=== PATIENT | male | born 1950 | race Caucasian/White ===

== ENCOUNTER → 2018-02-25 08:58 | Outpatient (CLI) | payer OTHER, SELFPAY ==
[2018-02-25 10:42] LABS: Anion Gap 9 (5-15); BUN 20 mg/dL (7-18); BUN/Creat Ratio 18.9 RATIO (10-20); Calcium,Total 9.3 mg/dL (8.5-10.1); Chloride 101 mmol/L (98-107); Creatinine, Serum 1.06 mg/dL (0.70-1.30); EST Glomerular Filtration Rate 74 mL/min (>60); Est Glom Filt Rate - Afr Amer 90 mL/min (>60); Glucose 158 mg/dL (74-106); Potassium 5.1 mmol/L (3.5-5.1); Sodium Level 138 mmol/L (136-145); Thyroid Stim Hormone (TSH) 3.54 uIU/mL (0.358-3.74)
== END ==
PROVIDERS: Family Provider Family Medicine; PCP Family Medicine; Visit Provider Family Medicine
DX: E11.9 Type 2 diabetes mellitus without complications (principal); E66.9 Obesity, unspecified
CPT/HCPCS: 36415; 80048; 84443

== ENCOUNTER → 2018-08-26 08:40 | Outpatient (CLI) | payer OTHER, MEDICARE, SELFPAY ==
[2018-07-02 08:57] VITALS: BMI 51.3
[2018-08-26 10:41] LABS: Microalbumin,Random Urine 6.6 mg/L (NO RANGE EST.)
[2018-08-26 10:57] LABS: AST(SGOT) 32 U/L (15-37); Alanine Aminotransfer ALT/SGPT 45 U/L (16-61); Albumin, Serum 3.6 g/dL (3.2-5.0); Alkaline Phosphatase 87 U/L (45-117); Anion Gap 11 (5-15); BUN 17 mg/dL (7-18); BUN/Creat Ratio 17.5 RATIO (10-20); Bilirubin, Direct 0.22 mg/dL (0.00-0.30); Calcium,Total 8.9 mg/dL (8.5-10.1); Chloride 103 mmol/L (98-107); Creatinine, Serum 0.97 mg/dL (0.70-1.30); EST Glomerular Filtration Rate 82 mL/min (>60); Est Glom Filt Rate - Afr Amer 99 mL/min (>60); Glucose 162 mg/dL (74-106); Potassium 4.6 mmol/L (3.5-5.1); Protein, Total 7.6 g/dL (6.4-8.2); Sodium Level 136 mmol/L (136-145)
== END ==
PROVIDERS: Family Provider Family Medicine; PCP Family Medicine; Visit Provider Family Medicine
DX: E11.9 Type 2 diabetes mellitus without complications (principal); Z79.4 Long term (current) use of insulin
CPT/HCPCS: 36415; 80048; 80076; 82043; 82570

== ENCOUNTER → 2019-01-05 08:31 | Outpatient (CLI) | payer MEDICARE, SELFPAY ==
[2018-12-28 09:46] VITALS: BMI 35.9
[2019-01-05 13:00] LABS: AST(SGOT) 38 U/L (15-37); Alanine Aminotransfer ALT/SGPT 44 U/L (16-61); Albumin, Serum 3.6 g/dL (3.2-5.0); Alkaline Phosphatase 79 U/L (45-117); Bilirubin, Direct 0.11 mg/dL (0.00-0.30); Cholesterol 185 mg/dL (200); Globulin 4.3 g/dL (2.2-4.2); High Density Lipoprotein 42 mg/dL; Protein, Total 7.9 g/dL (6.4-8.2); Triglycerides 314 mg/dL; Very Low Density Lipoprotein 63 mg/dL (5-40)
== END ==
PROVIDERS: Family Provider Family Medicine; PCP Family Medicine; Referring Provider Internal Medicine Cardiovascular Disease; Visit Provider Internal Medicine Cardiovascular Disease
DX: E78.00 Pure hypercholesterolemia, unspecified (principal)
CPT/HCPCS: 36415; 80061; 80076

== ENCOUNTER → 2019-06-18 08:46 | Outpatient (CLI) | payer MEDICARE, SELFPAY ==
[2018-12-28 09:46] VITALS: BMI 35.9
[2019-06-18 10:07] LABS: AST(SGOT) 29 U/L (15-37); Alanine Aminotransfer ALT/SGPT 37 U/L (16-61); Albumin, Serum 3.5 g/dL (3.2-5.0); Alkaline Phosphatase 73 U/L (45-117); Bilirubin, Direct 0.16 mg/dL (0.00-0.30); Cholesterol 153 mg/dL (200); Globulin 4.4 g/dL (2.2-4.2); High Density Lipoprotein 41 mg/dL; Protein, Total 7.9 g/dL (6.4-8.2); Triglycerides 193 mg/dL; Very Low Density Lipoprotein 39 mg/dL (5-40)
== END ==
PROVIDERS: Family Provider Family Medicine; PCP Family Medicine; Referring Provider Internal Medicine Cardiovascular Disease; Visit Provider Internal Medicine Cardiovascular Disease
DX: E78.00 Pure hypercholesterolemia, unspecified (principal)
CPT/HCPCS: 36415; 80061; 80076

== ENCOUNTER → 2019-08-25 09:12 | Outpatient (CLI) | payer MEDICARE, SELFPAY ==
[2019-06-23 08:22] VITALS: BMI 51.3
[2019-08-25 10:42] LABS: Anion Gap 9 (5-15); BUN 15 mg/dL (7-18); BUN/Creat Ratio 14.2 RATIO (10-20); Calcium,Total 9.1 mg/dL (8.5-10.1); Chloride 100 mmol/L (98-107); Creatinine, Serum 1.06 mg/dL (0.70-1.30); EST Glomerular Filtration Rate 74 mL/min (>60); Est Glom Filt Rate - Afr Amer 89 mL/min (>60); Glucose 181 mg/dL (74-106); Hemoglobin A1c 7.9 % (4.2-6.3); PSA,Total - Annual Screen 0.86 ng/mL (0.00-4.00); Potassium 4.1 mmol/L (3.5-5.1); Sodium Level 135 mmol/L (136-145); Thyroid Stim Hormone (TSH) 3.38 uIU/mL (0.358-3.74)
== END ==
PROVIDERS: Family Provider Family Medicine; PCP Family Medicine; Referring Provider Family Medicine; Visit Provider Family Medicine
DX: Z00.00 Encounter for general adult medical examination without abnormal findings (principal); Z12.5 Encounter for screening for malignant neoplasm of prostate; E11.9 Type 2 diabetes mellitus without complications
CPT/HCPCS: 36415; 80048; 83036; 84153; 84443; G0103

== ENCOUNTER → 2020-02-23 08:27 | Outpatient (CLI) | payer MEDICARE, SELFPAY ==
[2019-06-23 08:22] VITALS: BMI 51.3
[2020-02-23 10:40] LABS: ALB/GLOB Ratio 0.8 RATIO (0.9-2.4); AST(SGOT) 24 U/L (15-37); Alanine Aminotransfer ALT/SGPT 35 U/L (16-61); Albumin, Serum 3.5 g/dL (3.2-5.0); Alkaline Phosphatase 75 U/L (45-117); Anion Gap 9 (5-15); BUN 15 mg/dL (7-18); BUN/Creat Ratio 16.9 RATIO (10-20); Bilirubin, Direct 0.25 mg/dL (0.00-0.30); Calcium,Total 8.6 mg/dL (8.5-10.1); Chloride 103 mmol/L (98-107); Cholesterol 136 mg/dL (200); Creatinine, Serum 0.89 mg/dL (0.70-1.30); EST Glomerular Filtration Rate 91 mL/min (>60); Est Glom Filt Rate - Afr Amer 110 mL/min (>60); Globulin 4.5 g/dL (2.2-4.2); Glucose 176 mg/dL (74-106); High Density Lipoprotein 34 mg/dL; Potassium 3.9 mmol/L (3.5-5.1); Sodium Level 135 mmol/L (136-145); Triglycerides 210 mg/dL; Very Low Density Lipoprotein 42 mg/dL (5-40)
== END ==
PROVIDERS: Internal Medicine Cardiovascular Disease; PCP Family Medicine; Visit Provider Family Medicine
DX: E11.9 Type 2 diabetes mellitus without complications (principal); Z79.4 Long term (current) use of insulin; E78.00 Pure hypercholesterolemia, unspecified
CPT/HCPCS: 36415; 80053; 80061; 82248

== ENCOUNTER → 2020-08-24 08:32 | Outpatient (CLI) | payer MEDICARE, SELFPAY ==
[2020-03-10 08:27] VITALS: BMI 51.3
[2020-08-24 10:49] LABS: Anion Gap 7 (5-15); BUN 20 mg/dL (7-18); BUN/Creat Ratio 18.9 RATIO (10-20); Calcium,Total 8.9 mg/dL (8.5-10.1); Chloride 103 mmol/L (98-107); Cholesterol 156 mg/dL (200); Creatinine, Serum 1.06 mg/dL (0.70-1.30); EST Glomerular Filtration Rate 74 mL/min (>60); Est Glom Filt Rate - Afr Amer 89 mL/min (>60); Glucose 161 mg/dL (74-106); High Density Lipoprotein 41 mg/dL; Potassium 4.4 mmol/L (3.5-5.1); Sodium Level 135 mmol/L (136-145); Triglycerides 190 mg/dL; Very Low Density Lipoprotein 38 mg/dL (5-40)
== END ==
PROVIDERS: PCP Family Medicine; Referring Provider Family Medicine; Visit Provider Family Medicine
DX: E11.9 Type 2 diabetes mellitus without complications (principal); Z79.4 Long term (current) use of insulin
CPT/HCPCS: 36415; 80048; 80061

== ENCOUNTER → 2021-01-05 08:33 | Outpatient (CLI) | payer MEDICARE, SELFPAY ==
[2020-03-10 08:27] VITALS: BMI 51.3
[2021-01-05 11:12] LABS: AST(SGOT) 35 U/L (15-37); Alanine Aminotransfer ALT/SGPT 49 U/L (16-61); Albumin, Serum 3.6 g/dL (3.2-5.0); Alkaline Phosphatase 76 U/L (45-117); Cholesterol 160 mg/dL (200); Globulin 4.7 g/dL (2.2-4.2); High Density Lipoprotein 44 mg/dL; Protein, Total 8.3 g/dL (6.4-8.2); Triglycerides 218 mg/dL; Very Low Density Lipoprotein 44 mg/dL (5-40)
== END ==
PROVIDERS: PCP Family Medicine; Referring Provider Internal Medicine Cardiovascular Disease; Visit Provider Internal Medicine Cardiovascular Disease
DX: E78.00 Pure hypercholesterolemia, unspecified (principal)
CPT/HCPCS: 36415; 80061; 80076

== ENCOUNTER → 2021-02-22 08:21 | Outpatient (CLI) | payer MEDICARE, SELFPAY ==
[2021-01-05 09:22] VITALS: BMI 52.6
[2021-02-22 10:10] LABS: Anion Gap 8 (5-15); BUN 18 mg/dL (7-18); Chloride 101 mmol/L (98-107); Creatinine, Serum 1.06 mg/dL (0.70-1.30); EST Glomerular Filtration Rate 74 mL/min (>60); Est Glom Filt Rate - Afr Amer 89 mL/min (>60); Glucose 158 mg/dL (74-106); Potassium 4.8 mmol/L (3.5-5.1); Sodium Level 133 mmol/L (136-145)
[2021-02-22 15:31] LABS: Microalbumin,Random Urine < 5.0 mg/L (NO RANGE EST.)
== END ==
PROVIDERS: PCP Family Medicine; Visit Provider Family Medicine
DX: E11.9 Type 2 diabetes mellitus without complications (principal)
CPT/HCPCS: 36415; 80048; 82043; 82570

== ENCOUNTER → 2021-06-27 10:20 | Outpatient (CLI) | payer MEDICARE, SELFPAY ==
[2021-06-27 12:28] LABS: AST(SGOT) 29 U/L (15-37); Alanine Aminotransfer ALT/SGPT 32 U/L (16-61); Albumin, Serum 3.3 g/dL (3.2-5.0); Alkaline Phosphatase 71 U/L (45-117); Cholesterol 146 mg/dL (200); Globulin 4.7 g/dL (2.2-4.2); High Density Lipoprotein 43 mg/dL; Triglycerides 182 mg/dL; Very Low Density Lipoprotein 36 mg/dL (5-40)
== END ==
PROVIDERS: PCP Family Medicine; Visit Provider Internal Medicine Cardiovascular Disease
DX: E78.00 Pure hypercholesterolemia, unspecified (principal)
CPT/HCPCS: 36415; 80061; 80076

== ENCOUNTER 2021-08-27 08:52 | Outpatient (CLI) | payer MEDICARE, SELFPAY ==
[2021-08-27 10:36] LABS: Anion Gap 8 (5-15); BUN 19 mg/dL (7-18); BUN/Creat Ratio 20.5 RATIO (10-20); Calcium,Total 9.8 mg/dL (8.5-10.1); Chloride 103 mmol/L (98-107); Creatinine, Serum 0.93 mg/dL (0.70-1.30); EST Glomerular Filtration Rate 86 mL/min (>60); Est Glom Filt Rate - Afr Amer 104 mL/min (>60); Glucose 138 mg/dL (74-106); Potassium 5.1 mmol/L (3.5-5.1); Sodium Level 135 mmol/L (136-145)
== END 2021-08-27 23:59 | disposition short-term general hospital (02) ==
LOC: MFPLAB 08:55
PROVIDERS: PCP Family Medicine; Visit Provider Family Medicine
DX: E11.9 Type 2 diabetes mellitus without complications (principal); Z79.4 Long term (current) use of insulin
CPT/HCPCS: 36415; 80048

== ENCOUNTER → 2021-12-25 | Outpatient (CLI) | payer MEDICARE, SELFPAY ==
[2021-12-25 09:14] LABS: AST(SGOT) 31 U/L (15-37); Alanine Aminotransfer ALT/SGPT 39 U/L (16-61); Albumin, Serum 3.7 g/dL (3.2-5.0); Alkaline Phosphatase 80 U/L (45-117); Bilirubin, Direct 0.24 mg/dL (0.00-0.30); Cholesterol 145 mg/dL (200); Globulin 4.4 g/dL (2.2-4.2); High Density Lipoprotein 42 mg/dL; Protein, Total 8.1 g/dL (6.4-8.2); Triglycerides 192 mg/dL; Very Low Density Lipoprotein 38 mg/dL (5-40)
== END | disposition home or self-care (01) ==
LOC: LAB 07:58
PROVIDERS: PCP Family Medicine; Referring Provider Internal Medicine Cardiovascular Disease; Visit Provider Internal Medicine Cardiovascular Disease
DX: E78.00 Pure hypercholesterolemia, unspecified (principal)
CPT/HCPCS: 36415; 80061; 80076

== ENCOUNTER → 2022-02-25 | Outpatient (CLI) | payer MEDICARE, SELFPAY ==
[2022-02-25 10:35] LABS: Anion Gap 6 (5-15); BUN 17 mg/dL (7-18); BUN/Creat Ratio 18.5 RATIO (10-20); Calcium,Total 9.3 mg/dL (8.5-10.1); Chloride 101 mmol/L (98-107); Creatinine, Serum 0.92 mg/dL (0.70-1.30); EST Glomerular Filtration Rate 86 mL/min (>60); Est Glom Filt Rate - Afr Amer 104 mL/min (>60); Glucose 141 mg/dL (74-106); Potassium 4.8 mmol/L (3.5-5.1); Sodium Level 136 mmol/L (136-145)
== END | disposition home or self-care (01) ==
LOC: MFPLAB 09:19
PROVIDERS: PCP Family Medicine; Visit Provider Family Medicine
DX: E11.9 Type 2 diabetes mellitus without complications (principal); Z79.4 Long term (current) use of insulin
CPT/HCPCS: 36415; 80048

== ENCOUNTER → 2022-05-30 | Outpatient (CLI) | payer MEDICARE, SELFPAY ==
[2022-05-30 10:49] LABS: Anion Gap 8 (5-15); BUN 17 mg/dL (7-18); BUN/Creat Ratio 17.3 RATIO (10-20); Calcium,Total 9.2 mg/dL (8.5-10.1); Chloride 102 mmol/L (98-107); Cholesterol 141 mg/dL (200); Creatinine, Serum 0.98 mg/dL (0.70-1.30); EST Glomerular Filtration Rate 80 mL/min (>60); Est Glom Filt Rate - Afr Amer 97 mL/min (>60); Glucose 140 mg/dL (74-106); High Density Lipoprotein 39 mg/dL; Potassium 4.7 mmol/L (3.5-5.1); Sodium Level 135 mmol/L (136-145); Triglycerides 161 mg/dL; Very Low Density Lipoprotein 32 mg/dL (5-40)
== END | disposition home or self-care (01) ==
LOC: MFPLAB 08:26
PROVIDERS: PCP Family Medicine; Referring Provider Family Medicine; Visit Provider Family Medicine
DX: E11.9 Type 2 diabetes mellitus without complications (principal)
CPT/HCPCS: 36415; 80048; 80061

== ENCOUNTER → 2022-06-25 | Outpatient (CLI) | payer MEDICARE, SELFPAY ==
[2022-06-25 08:34] LABS: AST(SGOT) 35 U/L (15-37); Alanine Aminotransfer ALT/SGPT 32 U/L (16-61); Albumin, Serum 3.7 g/dL (3.2-5.0); Alkaline Phosphatase 75 U/L (45-117); Bilirubin, Direct 0.23 mg/dL (0.00-0.30); Cholesterol 162 mg/dL (200); Globulin 4.6 g/dL (2.2-4.2); High Density Lipoprotein 47 mg/dL; Protein, Total 8.3 g/dL (6.4-8.2); Triglycerides 219 mg/dL; Very Low Density Lipoprotein 44 mg/dL (5-40)
== END | disposition home or self-care (01) ==
LOC: LAB 07:31
PROVIDERS: PCP Family Medicine; Referring Provider Internal Medicine Cardiovascular Disease; Visit Provider Internal Medicine Cardiovascular Disease
DX: E78.00 Pure hypercholesterolemia, unspecified (principal)
CPT/HCPCS: 36415; 80061; 80076

== ENCOUNTER → 2022-11-28 | Outpatient (CLI) | payer MEDICARE, SELFPAY ==
[2022-11-28 10:56] LABS: Anion Gap 5 (5-15); BUN 21 mg/dL (7-18); BUN/Creat Ratio 20.8 RATIO (10-20); Calcium,Total 9.5 mg/dL (8.5-10.1); Chloride 102 mmol/L (98-107); Cholesterol 148 mg/dL (200); Creatinine, Serum 1.01 mg/dL (0.70-1.30); EST Glomerular Filtration Rate 77 mL/min (>60); Est Glom Filt Rate - Afr Amer 94 mL/min (>60); Glucose 173 mg/dL (74-106); High Density Lipoprotein 43 mg/dL; Potassium 5.1 mmol/L (3.5-5.1); Sodium Level 133 mmol/L (136-145); Triglycerides 206 mg/dL; Very Low Density Lipoprotein 41 mg/dL (5-40)
== END | disposition home or self-care (01) ==
LOC: MFPLAB 09:06
PROVIDERS: PCP Family Medicine; Referring Provider Family Medicine; Visit Provider Family Medicine
DX: E11.9 Type 2 diabetes mellitus without complications (principal); Z79.4 Long term (current) use of insulin
CPT/HCPCS: 36415; 80048; 80061

== ENCOUNTER 2023-04-28 15:32 | Observation (INO) | payer MEDICARE, SELFPAY ==
[2023-04-28] VITALS (7 sets, daily range): BP systolic 122–188; BP diastolic 60–108; PULSE 52–60; RESP 18–26; TEMP 35.9–36.7; O2SAT 96–98; BMI 49.7; BMI 49.9
--- NOTE | 2023-04-28 16:22 | CT_ITS ---
INDICATION: 3rd nerve palsy EXAMINATION: CT BRAIN WITH CONTRAST TECHNIQUE: Noncontrast axial images were obtained of the brain. Subsequently, routine carotid CT angiogram protocol was performed without and with IV contrast. In addition, images were obtained of the [place]. NASCET criteria using the distal ICAs for comparison were used for evaluation of stenoses. 3D reconstructions were reviewed. A radiation dose optimization technique was used for this scan. IV Contrast dosage and agent: COMPARISON: FINDINGS: --CT BRAIN: BRAIN PARENCHYMA: No intra- or extra-axial hemorrhage. No evidence of acute infarct. No intracranial mass or mass effect. There is preservation of the gusman/white matter interface. Posterior fossa structures are unremarkable. CSF SPACES: Appropriate for age. No hydrocephalus. Basal cisterns are patent. CALVARIUM, SKULL BASE, PARANASAL SINUSES AND MASTOID AIR CELLS: Clear. No discrete lytic or blastic abnormalities. ASPECTS Score for Acute Strokes: 10 --CTA NECK: AORTIC ARCH AND BRANCHES: Borderline ascending aorta measuring 3.9 cm. RIGHT CCA: No occlusion, significant stenosis or dissection. RIGHT ICA: No occlusion, significant stenosis or dissection. LEFT CCA: No occlusion, significant stenosis or dissection. LEFT CAROTID BULB: Mild-severity calcifications and intraluminal thrombus with less than 50% luminal stenosis LEFT ICA: No occlusion, significant stenosis or dissection. RIGHT VERTEBRAL ARTERY: No occlusion, significant stenosis or dissection. LEFT VERTEBRAL ARTERY: Limited visualization of the proximal segment. No occlusion, significant stenosis or dissection. NECK SOFT TISSUES: Unremarkable. --CTA HEAD: --Anterior circulation: ICAs: No significant stenosis at the intracranial/visualized segments. ACAs: No significant stenosis at the visualized segments. ACOM: Present. MCAs: No significant stenosis at the visualized segments. --Posterior circulation: PCOMs: Patent on the left. Nonvisualization on the right. 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 BASILAR ARTERY: No significant stenosis. VERTEBRAL ARTERIES: Limited visualization of the proximal segment of the left vertebral artery. No significant stenosis at the intradural/visualized segments. No evidence of intracranial aneurysm or vascular malformation. CT/CTA Head AND Neck W/ Contrast IMPRESSION: No hemodynamically significant stenosis. Electronically Signed: Issa Rider DO at 18:14 EDT Reading Location ID and State: [facility] / [place] Tel [phone], Service support ,
--- NOTE | 2023-04-28 16:26 | EKG12_ITS ---
Test Reason : NEURO Blood Pressure : / mmHG Vent. Rate : 056 BPM Atrial Rate : 056 BPM P-R Int : 240 ms QRS Dur : 088 ms QT Int : 440 ms P-R-T Axes : -07 -43 -06 degrees QTc Int : 424 ms Sinus bradycardia with sinus arrhythmia with 1st degree A-V block Left axis deviation Inferior infarct , age undetermined Possible Anterolateral infarct , age undetermined Abnormal ECG Confirmed by ERIC OCONNOR ([id number]), editorial director CRISTY ALEJO ([id number]) on 05/07/2023 2:01:28 PM Referred By: Confirmed By:ERIC OCONNOR
[2023-04-28 16:34] LABS: Absolute Lymphocyte Count 2.23 X10^3/uL (0.83-4.51); Absolute Neutrophil Count 6.6 X10^3/uL (2.0-7.7); Basophil# 0.09 X10^3/uL; Basophil% 0.8 % (0-1); Eosinophil# 0.72 X10^3/uL; Eosinophils% 6.7 % (0-5); Hematocrit 49.3 % (40-54); Hemoglobin 15.8 g/dL (13.0-16.5); Lymphocyte # 2.23 X10^3/ul (0.83-4.51); Lymphocyte % 20.8 % (19-41); Mean Corpuscular Hgb 29.6 pg (27.0-32.0); Mean Corpuscular Volume 92.5 fL (80-94); Mean Platelet Vol. 10.4 fl (6.2-12.0); Monocyte# 0.98 X10^3/uL; Monocyte% 9.1 % (0-10); NRBC Flagged by Analyzer 0 % (0-5); Neutrophil # 6.64 X10^3/uL (2.7-7.7); Neutrophil % 61.9 % (47-70); Platelet Count 192 K/mm3 (150-450); RBC Distribution Width CV 13.8 % (11.6-14.6); Red Blood Count 5.33 M/mm3 (4.6-6.2); White Blood Count 10.7 K/mm3 (4.4-11.0)
[2023-04-28 16:48] LABS: Partial Thromboplast Time 26.7 Seconds (24.1-36.2); Prothrombin Time (Protime)PT. 13.3 SECONDS (11.7-14.9)
[2023-04-28 16:54] LABS: Anion Gap 9 (5-15); BUN 17 mg/dL (7-18); BUN/Creat Ratio 14.8 RATIO (10-20); CRP 5.69 mg/L (0.0-3.0); Calcium,Total 9.1 mg/dL (8.5-10.1); Chloride 103 mmol/L (98-107); Creatinine, Serum 1.15 mg/dL (0.70-1.30); EST Glomerular Filtration Rate 67 mL/min (>60); Est Glom Filt Rate - Afr Amer 81 mL/min (>60); Glucose 122 mg/dL (74-106); Potassium 3.9 mmol/L (3.5-5.1); Sodium Level 139 mmol/L (136-145)
--- NOTE | 2023-04-28 16:56 | EDS_ITS ---
HPI History of Present Illness Chief Complaint: Neuro S/Sx Detail of Chief Complaint: Vision changes Informant: patient Narrative Narrative: Patient presents from PCPs office due to concern about vision changes, facial droop, right eye drooping. Patient states that last April 24, he noted double vision. He states initially there were 2 objects located [id number] when he would have both eyes open. When he closes 1 eye he has normal vision without any change. He states that since , the object has become further apart and one object is now slightly higher than the other. Patient saw his primary care physician today who noted a slight facial droop on the right and drooping of the right upper eyelid. Due to delay on getting scans preapproved he was sent to the emergency room. Patient does have history of prior cataract surgery on his eyes with Dr. Cordero. [facility] Medical History Arteriosclerotic coronary artery disease Atherosclerotic heart disease of [place] coronary artery without angina pectoris CAD (coronary artery disease) Diabetes mellitus Essential (primary) hypertension Hyperlipidemia Intermittent claudication Other care home (current) drug therapy Pure hypercholesterolemia Home Medications aspirin 81 mg chewable tablet 81 mg PO DAILY@0800 06/08/13 [History Last Taken 06/07/13 08:00] multivitamin with folic acid 400 mcg tablet 1 tab PO DAILY 06/08/13 [History Last Taken 06/07/13 08:00] sitagliptin phosphate 50 mg-metformin 1,000 mg tablet (Janumet) 1 tab PO BID 07/02/18 [History Last Taken Unknown] glimepiride 4 mg tablet 4 mg PO DAILY 01/05/21 [History Last Taken Unknown] lisinopril 10 mg tablet 20 mg PO DAILY 07/01/22 [History Last Taken Unknown] isosorbide mononitrate 30 mg tablet,extended release 24 hr 30 mg PO DAILY #90 tabs 08/06/22 [Rx Last Taken Unknown] metoprolol tartrate 25 mg tablet 25 mg PO BID #180 tabs 08/13/22 [Rx Last Taken Unknown] empagliflozin 25 mg tablet 25 mg PO QDAY #90 tabs 10/04/22 [Rx Last Taken Unknown] atorvastatin 40 mg tablet 40 mg PO QDAY #90 tabs 01/14/23 [Rx Last Taken Unknown] Allergy/AdvReac Type Severity Reaction Status Date / Time Penicillins Allergy Unknown Verified 04/28/23 15:36 Family History Mother CAD (coronary artery disease) cabg Diabetes Brother pacemaker Father Diabetes Surgical History History of cardiac cath (~03/2012) Social History Smoking Status: Never smoker alcohol intake: never substance use type: does not use caffeine: Yes Type: coffee Number of servings: 12 what type of physical activity do you participate in: none seatbelt use: never do you feel safe at home: Yes ROS ROS ED Constitutional Constitutional ED: Denies chills or fever(s) Eyes Eyes: Reports change in vision and diplopia; Denies discharge from eye(s) ENT ENT ED: Denies discharge from eye(s), rhinorrhea or sore throat Cardiovascular Cardiovascular: Denies chest pain or palpitations Respiratory/Chest Respiratory/Chest: Denies cough or dyspnea Gastrointestinal Gastrointestinal: Denies abdominal pain, nausea or vomiting Genitourinary Genitourinary ED: Denies dysuria Musculoskeletal Musculoskeletal: Denies back pain or extremity pain Integumentary Denies Abrasions or rash Neurologic Neurologic: Denies headache(s) or weakness Psychiatric Psychiatric: Denies anxiety or depression Allergic/Immunologic Allergic/Immunologic ED: Denies lip swelling or urticaria EXAM Physical Exam Const Vital Signs: 04/28/23 15:33 04/28/23 17:32 Temperature 96.6 F L Temperature Source Temporal Pulse Rate 60 52 L Respiratory Rate 20 H 19 H Blood Pressure 188/82 H 132/60 H Blood Pressure Mean 117 84 Pulse Ox 98 Oxygen Delivery Method Room Air Positive well nourished and well developed General Appearance ED: well developed HEENT Reports normocephalic and head/scalp atraumatic Eyes PERRL Eyes Narrative: When looking at the patient, his left eye focuses on my face appropriately but his right eye is turned out laterally. However, when I have the patient follow my finger with his eyes he had does have full range of motion of his right eye. Slight right eyelid droop was noted. Neck supple Chest Wall inspection of chest normal and palpation of chest normal Resp normal respiratory effort and clear to auscultation bilaterally Cardio regular rate and regular rhythm GI normal to inspection, nondistended, normoactive bowel sounds Palpation: soft Back/Spine no CVA tenderness Extremity normal to inspection Neuro oriented x3 and no sensory deficits noted Sensorium / Orientation: alert Motor Exam: strength 5/5 throughout Psych mental status grossly normal Skin no rashes or lesions noted MDM MDM MDM Narrative Medical decision making narrative: I spoke with Dr. Luong, on-call for ophthalmology. He recommended CTA of the head and neck to evaluate for SUPPLY CHAIN SPECIALIST abnormality pressing on the 3rd nerve. He also recommended sed rate and CRP as giant cell arteritis can sometimes cause the symptoms. Lab work was obtained along with CTA of the head and neck. History & Record Review Discussion w/independent historian: Patient and Other Lab Data Attestation: I reviewed the patient's lab results. Labs: Laboratory Results - last 24 hr 04/28/23 16:24 WBC 10.7 RBC 5.33 Hgb 15.8 Hct 49.3 MCV 92.5 MCH 29.6 MCHC 32.0 RDW Std Deviation 47.0 H RDW Coeff of Naldo 13.8 Plt Count 192 MPV 10.4 Immature Gran % (Auto) 0.700 Neut % (Auto) 61.9 Lymph % (Auto) 20.8 [place] % (Auto) 9.1 Eos % (Auto) 6.7 H Baso % (Auto) 0.8 Absolute Neuts (auto) 6.6 Absolute Lymphs (auto) 2.23 Nucleated RBC % 0 ESR 6 PT 13.3 INR 1.0 APTT 26.7 Sodium 139 Potassium 3.9 Chloride 103 Carbon Dioxide 27.0 Anion Gap 9 BUN 17 Creatinine 1.15 Est GFR (MDRD) Af Amer 81 Est GFR (MDRD) Non-Af 67 BUN/Creatinine Ratio 14.8 Glucose 122 H Calcium 9.1 C-React Prot Ext Range 5.69 H Radiography Diagnostic Testing: Clinical Impression(s) from Imaging Studies Head/Neck CTA 04/28/23 16:22 IMPRESSION: No hemodynamically significant stenosis. Electronically Signed: Issa Rider DO at 18:14 EDT , Treatment and Re-Evaluation :: CBC is unremarkable. Chemistry studies are normal other than a glucose of 122. CRP is 5.69 and sed rate is normal at 6. Coags are normal. EKG is sinus bradycardia 56 bpm. No acute ischemia. CTA of the head and neck reveals no acute abnormalities. Per my discussion with Dr. Luong, if her initial work- up was negative patient still would benefit from admission for further stroke work-up including MRI. Dr. Luong is available to come see the patient if needed in consult. I will speak with the hospitalist. 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 Prescriptions: No Action Janumet 50-1,000 mg tablet 1 tab PO BID glimepiride 4 mg tablet 4 mg PO DAILY lisinopril 10 mg tablet 20 mg PO DAILY aspirin 81 MG tablet,chewable 81 mg PO DAILY@0800 Patient Comments: ANTIPLATELET multivitamin with folic acid 1 TABLET tablet 1 tab PO DAILY Patient Comments: MULTI VITAMIN isosorbide mononitrate 30 mg tablet extended release 24 hr 30 mg PO DAILY Qty: 90 4RF metoprolol tartrate 25 mg tablet 25 mg PO BID Qty: 180 3RF empagliflozin 25 mg tablet 25 mg PO QDAY Qty: 90 3RF atorvastatin 40 mg tablet 40 mg PO QDAY Qty: 90 3RF Primary Care Provider: Javan Wells Referrals: Javan Wells MD [Primary Care Provider] - Disposition Disposition: Acute Care Hospital [facility]
--- NOTE | 2023-04-28 19:26 | PCM.HP.STD ---
HPI - General General Date of Admission: 04/28/23 Date of Service: 04/28/23 Chief Complaint: Double vision HPI Narrative MARIYA ORTA, is a 72 M with a significant history of hypertension, hyperlipidemia, diabetes mellitus who presents emergency department with 4-day history of double vision. Of note his symptoms started with blurred vision. Later on his symptoms progressed to double vision. His symptoms have been persistent. He noticed that when he is covered his right eye which was getting especially closed he could see better. Also he reports of pain in his right eye. Emergency room doctor discussed the case with manager psychology who will follow up on consultation. [facility], [facility] Medical History (Updated 04/29/23 @ 06:[address] 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 Pure hypercholesterolemia Home Medications aspirin 81 mg chewable tablet 81 mg PO DAILY@0800 06/08/13 [History Last Taken 06/07/13 08:00] multivitamin with folic acid 400 mcg tablet 1 tab PO DAILY 06/08/13 [History Last Taken 06/07/13 08:00] sitagliptin phosphate 50 mg-metformin 1,000 mg tablet (Janumet) 1 tab PO BID 07/02/18 [History Last Taken Unknown] glimepiride 4 mg tablet 4 mg PO QHS 01/05/21 [History Last Taken Unknown] lisinopril 10 mg tablet 20 mg PO DAILY 07/01/22 [History Last Taken Unknown] isosorbide mononitrate 30 mg tablet,extended release 24 hr 30 mg PO DAILY #90 tabs 08/06/22 [Rx Last Taken Unknown] metoprolol tartrate 25 mg tablet 25 mg PO BID #180 tabs 08/13/22 [Rx Last Taken Unknown] empagliflozin 25 mg tablet 25 mg PO QDAY #90 tabs 10/04/22 [Rx Last Taken Unknown] atorvastatin 40 mg tablet 40 mg PO QDAY #90 tabs 01/14/23 [Rx Last Taken Unknown] Allergy/AdvReac Type Severity Reaction Status Date / Time Penicillins Allergy Unknown Verified 04/28/23 15:36 Family History Mother CAD (coronary artery disease) cabg Diabetes Brother pacemaker Father Diabetes Surgical History History of cardiac cath (~03/2012) Social History Smoking Status: Never smoker alcohol intake: never substance use type: does not use caffeine: Yes Type: coffee Number of servings: 12 what type of physical activity do you participate in: none seatbelt use: never do you feel safe at home: Yes ROS ROS Narrative Pertinent positives and pertinent negatives as noted in HPI. All other systems were reviewed and are negative Vital Signs Vital Signs Vital Signs: 04/28/23 15:33 04/28/23 17:32 04/28/23 19:10 Temperature 96.6 F L Temperature Source Temporal Pulse Rate 60 52 L 56 L Respiratory Rate 20 H 19 H 19 H Blood Pressure 188/82 H 132/60 H 122/108 H Blood Pressure Mean 117 84 112 Pulse Ox 98 Oxygen Delivery Method Room Air 04/28/23 19:22 Temperature 97.2 F L Temperature Source Temporal Pulse Rate 54 L Respiratory Rate 26 H Blood Pressure 163/80 H Blood Pressure Mean 107 Pulse Ox 96 Oxygen Delivery Method Room Air Physical Exam Narrative Physical exam: General: Well-nourished, well-developed. Head: Normocephalic, atraumatic, no tenderness Eyes: Vision is grossly normal. EOMI ENT, no trauma, moist mucous membranes, no rhinorrhea Neck: Nontender, No thyromegaly. CVS: Regular rate and rhythm. S1-S2 present. No murmur, gallop or rub. Respiratory : clear to auscultation bilaterally, chest wall nontender Abdomen: Soft, nontender, nondistended, normal bowel sounds, no masses : Deferred Back: Nontender, no CVA tenderness, no midline spinal tenderness, deformities, step-offs Extremities: Nontender full range of motion, no trauma Skin: Normal color, no trauma, abrasions Neuro: Alert, oriented, right eyelid droop and right facial droop. Hfba-gt-zeef test normal pntryv-ry-kfna test normal. Strength 5 out of 5 throughout. Not hyperreflexia in bilateral elbow reflex and knee-jerk reflex. Psychiatry: Normal mood. Normal affect. Not depressed. Not anxious. Results Lab / Micro Data Attestation: I reviewed the patient's lab results. 04/29/23 04:51 04/29/23 04:51 Labs: Laboratory Results - last 24 hr 04/28/23 16:24: WBC 10.7, RBC 5.33, Hgb 15.8, Hct 49.3, MCV 92.5, MCH 29.6, MCHC 32.0, RDW Std Deviation 47.0 H, RDW Coeff of Naldo 13.8, Plt Count 192, MPV 10.4, Immature Gran % (Auto) 0.700, Neut % (Auto) 61.9, Lymph % (Auto) 20.8, [place] % (Auto) 9.1, Eos % (Auto) 6.7 H, Baso % (Auto) 0.8, Absolute Neuts (auto) 6.6, Absolute Lymphs (auto) 2.23, Nucleated RBC % 0, ESR 6, PT 13.3, INR 1.0, APTT 26.7, Sodium 139, Potassium 3.9, Chloride 103, Carbon Dioxide 27.0, Anion Gap 9, BUN 17, Creatinine 1.15, Est GFR (MDRD) Af Amer 81, Est GFR (MDRD) Non-Af 67, BUN/Creatinine Ratio 14.8, Glucose 122 H, Calcium 9.1, C-React Prot Ext Range 5.69 H Radiology Impression Head/Neck CTA 04/28/23 16:22 IMPRESSION: No hemodynamically significant stenosis. Electronically Signed: Issa Rider DO at 18:14 EDT Reading Location ID and State: [facility] / [place] Tel [phone], Service support , Assessment & Plan Assessment/Plan (1) 3rd cranial nerve palsy: QUALIFIERS: Laterality: right Qualified Code(s): H49.01 - Third [oculomotor] nerve palsy, right eye (2) Stroke-like symptoms: PLAN: Plan Strokelike symptoms Serial NINDS NIH Scale ordered Impression of head and neck CTA with no hemodynamically significant stenosis. There was no bleed. Upon my personal head CT image review: I agree with radiologist interpretation Lipid profile and A1c ordered. Physical therapy, occupational therapy and to work with patient. N.p.o. until bedside swallow eval. Daily aspirin. High intensity statin. Patient is outside window of permissive hypertension. Echocardiogram ordered. Ophthalmology consulted Hypertension Blood pressure is not within goal Home blood pressure medication continued. As needed hydralazine ordered. Trend blood pressure and adjust blood pressure medications. Diabetes mellitus Blood glucose on presentation was stable. Jardiance and glimepiride continued. Janumet held. Monitor Accu-Cheks. With continuation of glimepiride Correction scale insulin ordered. Time spent in the patient's overall evaluation,decision-making process, review of diagnostic data, adjustment of management, discussion with other providers, nursing nursing and ancillary staff involved in patient's care documentation, 70 minutes. Charges/Coding Visit Charges Inpatient E&M: 18767 Init Hosp L3
--- NOTE | 2023-04-28 20:58 | ECHOCS_ITS ---
Reason For Study: TIA/CVA Procedure This was a 2D Doppler, Color Flow transthoracic echocardiogram. Technically difficult study due to body habitus and patient having hard time tolerating probe pressure. Exam performed portable in patient room. Left Ventricle Normal LV size. Moderate concentric left ventricular hypertrophy. Left ventricular systolic function is normal. The estimated ejection fraction is 55 %. Stage 2 diastolic dysfunction. No regional wall motion abnormalities noted. Right Ventricle Normal RV size. Normal systolic function. Atria There is moderate biatrial dilatation. The right atrium is moderately enlarged. Mitral Valve Mitral valve not well visualized. Tricuspid Valve Normal tricuspid valve. Aortic Valve Trisinus/trileaflet aortic valve. Mild focal aortic valve calcification. Pulmonic Valve The pulmonic valve is not well visualized. Great Vessels Normal aortic root. The pulmonary artery is normal size. Normal inferior vena cava. Pericardium/Pleural No pericardial effusion. Medication Diluted definity 3ml given slow IV push to enhance endocardial definition. MMode/2D Measurements & Calculations LVIDd: 4.7 cm IVSd: 1.5 cm LAV(MOD-bp): 75.0 ml LVIDs: 3.4 cm LVPWd: 1.7 cm FS: 27.5 % LAV(MOD-bp) Indexed: 31.2 ml/m2 LAV(MOD-sp2): 62.6 ml LAV(MOD-sp4): 83.5 ml SV(MOD-sp4): 63.9 ml SV(sp4-el): 66.6 ml LVAd ap4: 35.1 cm2 LVLd ap4: 8.6 cm EDV(MOD-sp4): 117.1 ml EDV(sp4-el): 122.0 ml LVAs ap4: 22.1 cm2 LVLs ap4: 7.5 cm ESV(MOD-sp4): 53.1 ml ESV(sp4-el): 55.3 ml EF(MOD-sp4): 54.6 % EF(sp4-el): 54.6 % TAPSE: 3.5 cm LA A4 area: 26.6 cm2 RA A4 area: 25.8 cm2 Time Measurements MV dec time: 0.13 sec Doppler Measurements & Calculations MV E max kevon: 104.0 cm/sec Lat Peak E' Kevon: 11.7 cm/sec Med Peak E' Kevon: 6.9 cm/sec MV A max kevon: 85.0 cm/sec E/E' lat: 8.9 E/E' med: 15.0 MV E/A: 1.2 MV V2 max: 116.3 cm/sec MV dec slope: 791.4 cm/sec2 Ao V2 max: 146.4 cm/sec MV max P.4 mmHg Ao max P.6 mmHg MV V2 mean: 62.2 cm/sec Ao V2 mean: 92.9 cm/sec MV mean P.9 mmHg Ao mean P.1 mmHg MV V2 VTI: 35.5 cm Ao V2 VTI: 38.5 cm AV (velocity ratio): 0.83 LV V1 max: 121.5 cm/sec PA V2 max: 104.2 cm/sec LV V1 max P.9 mmHg PA V2 mean: 67.4 cm/sec LV V1 mean P.0 mmHg LV V1 mean: 80.8 cm/sec LV V1 VTI: 32.1 cm ECHO/Echo Complete W/ Contrast Interpretation Summary Normal LV size. Left ventricular systolic function is normal. The estimated ejection fraction is 55 %. Moderate concentric left ventricular hypertrophy. Stage 2 diastolic dysfunction. Contrast injection was performed. Ordering Physician: El James Referring Physician: Javan Wells Performed By: Constance Bond RCS
[2023-04-28] MEDS: Glimepiride 4 MG Tablet PO (22:11)
[2023-04-28] MEDS: Atorvastatin Calcium 40 MG Tablet PO (22:11)
[2023-04-28] MEDS: Metoprolol Tartrate 25 MG Tablet PO (22:11)
[2023-04-28 22:32] LABS: Bedside Glucose 110 mg/dL (74-106)
[2023-04-29 01:10] VITALS: BP 125/67; PULSE 57; RESP 16; TEMP 36.7; O2SAT 97
[2023-04-29 01:18] LABS: Erythrocyte Sedimentation Rate 8 mm/hr (0-20)
[2023-04-29 05:05] VITALS: BP 141/65; PULSE 61; RESP 16; TEMP 36.8; O2SAT 97
[2023-04-29 05:10] LABS: Absolute Lymphocyte Count 1.81 X10^3/uL (0.83-4.51); Absolute Neutrophil Count 5.4 X10^3/uL (2.0-7.7); Basophil# 0.08 X10^3/uL; Basophil% 0.9 % (0-1); Eosinophil# 0.63 X10^3/uL; Eosinophils% 7.1 % (0-5); Hematocrit 47.1 % (40-54); Hemoglobin 15.5 g/dL (13.0-16.5); Lymphocyte # 1.81 X10^3/ul (0.83-4.51); Lymphocyte % 20.5 % (19-41); Mean Corp Hgb Conc 32.9 g/dL (32-36); Mean Corpuscular Volume 91.3 fL (80-94); Mean Platelet Vol. 10.9 fl (6.2-12.0); Monocyte# 0.87 X10^3/uL; Monocyte% 9.9 % (0-10); NRBC Flagged by Analyzer 0 % (0-5); Neutrophil # 5.38 X10^3/uL (2.7-7.7); Platelet Count 178 K/mm3 (150-450); RBC Distribution Width CV 13.8 % (11.6-14.6); RBC Distribution Width SD 46.9 fl (35.1-43.9); Red Blood Count 5.16 M/mm3 (4.6-6.2); White Blood Count 8.8 K/mm3 (4.4-11.0)
[2023-04-29 05:40] LABS: Anion Gap 5 (5-15); BUN 14 mg/dL (7-18); BUN/Creat Ratio 16.4 RATIO (10-20); Calcium,Total 8.8 mg/dL (8.5-10.1); Chloride 106 mmol/L (98-107); Cholesterol 148 mg/dL (200); Creatinine, Serum 0.85 mg/dL (0.70-1.30); EST Glomerular Filtration Rate 94 mL/min (>60); Est Glom Filt Rate - Afr Amer 114 mL/min (>60); Estimated Creatinine Clearance 71.93 ml/min; Glucose 138 mg/dL (74-106); High Density Lipoprotein 40 mg/dL; Potassium 4.2 mmol/L (3.5-5.1); Sodium Level 139 mmol/L (136-145); Triglycerides 184 mg/dL; Very Low Density Lipoprotein 37 mg/dL (5-40)
[2023-04-29 07:22] LABS: Hemoglobin A1c 7.3 % (3.8-5.6)
[2023-04-29 08:40] VITALS: BP 140/65; PULSE 51; RESP 16; TEMP 36.7; O2SAT 98
[2023-04-29] MEDS: Empagliflozin 25 MG Tablet PO (08:52)
[2023-04-29] MEDS: Aspirin 81 MG TAB.CHEW PO (08:52)
[2023-04-29] MEDS: Enoxaparin 40 MG/0.4 ML Syringe SC (08:53)
[2023-04-29 08:56] VITALS: O2SAT 95
--- NOTE | 2023-04-29 11:52 | CASEMGMT ---
Patient has order for discharge. RN CM in to discuss needs at discharge. Patient and daughter deny needs at discharge. Patient and daughter had no further questions or concerns.
[2023-04-29 12:13] VITALS: BP 115/99; PULSE 56; RESP 16; TEMP 36.7; O2SAT 97
[2023-04-29 12:23] VITALS: BP 115/99; PULSE 62
[2023-04-29] MEDS: Metoprolol Tartrate 25 MG Tablet PO (12:23)
[2023-04-29] MEDS: Isosorbide Mononitrate 30 MG Tablet PO (12:23)
[2023-04-29] MEDS: Multivitamins,Therapeutic Tablet 1 TABLET PO (12:23)
[2023-04-29] MEDS: Lisinopril 20 MG Tablet PO (12:23)
[2023-04-29 12:38] LABS: Bedside Glucose 144 mg/dL (74-106)
--- NOTE | 2023-04-29 13:08 | DCINST_ITS ---
Discharge Instructions Diet Discharge Diet: Carb Control Diet Activity Discharge Activity: Return to Normal Activity Dressing / Incision Call your doctor if you observe: Fever of 101 or Higher, Shortness of breath, Dizziness, Fainting spells, Swelling in the ankles, Chest pain and Increased palpitations (irregular heartbeat) Follow Up Care Test Results: Test results from this visit will be discussed in further detail at your follow- up appointment, if applicable. Discharge Plan Admission Admit Date/Time: 04/28/23 19:14 Attending Provider: Mo Foley Primary Care Provider: Javan Wells Consulting Providers: El James Discharge Orders/Prescriptions Prescriptions: Continued Janumet 50-1,000 mg tablet 1 tab PO BID glimepiride 4 mg tablet 4 mg PO .daily @ dinner lisinopril 10 mg tablet 20 mg PO DAILY aspirin 81 MG tablet,chewable 81 mg PO DAILY@0800 Patient Comments: ANTIPLATELET multivitamin with folic acid 1 TABLET tablet 1 tab PO DAILY Patient Comments: MULTI VITAMIN isosorbide mononitrate 30 mg tablet extended release 24 hr 30 mg PO DAILY Qty: 90 4RF metoprolol tartrate 25 mg tablet 25 mg PO BID Qty: 180 3RF empagliflozin 25 mg tablet 25 mg PO QDAY Qty: 90 3RF atorvastatin 40 mg tablet 40 mg PO QDAY Qty: 90 3RF Referrals / Follow Up: Javan Wells MD [Primary Care Provider] - In 1 Week Disposition Disposition (needs filled in before D/C Order can be placed): Home, Self Care
[2023-04-29 14:00] VITALS: BMI 49.9
--- NOTE | 2023-04-29 14:19 | PCM.DC.SUM ---
Providers Date of Admission: 04/28/23 Primary Care Physician: Dr. 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 Code(s): H49.00 - Third [oculomotor] nerve palsy, unspecified eye Qualifiers: Laterality: right Qualified Code(s): H49.01 - Third [oculomotor] nerve palsy, right eye (2) Stroke-like symptoms: Status: Acute Code(s): R29.90 - Unspecified symptoms and signs involving the nervous system Medications at Discharge Home Medications aspirin 81 mg chewable tablet 81 mg PO DAILY@0800 06/08/13 multivitamin with folic acid 400 mcg tablet 1 tab PO DAILY 06/08/13 sitagliptin phosphate 50 mg-metformin 1,000 mg tablet (Janumet) 1 tab PO BID 07/02/18 glimepiride 4 mg tablet 4 mg PO .daily @ dinner 01/05/21 lisinopril 10 mg tablet 20 mg PO DAILY 07/01/22 isosorbide mononitrate 30 mg tablet,extended release 24 hr 30 mg PO DAILY #90 tabs 08/06/22 metoprolol tartrate 25 mg tablet 25 mg PO BID #180 tabs 08/13/22 empagliflozin 25 mg tablet 25 mg PO QDAY #90 tabs 10/04/22 atorvastatin 40 mg tablet 40 mg PO QDAY #90 tabs 01/14/23 Hospital Course Operations None Procedures None Summary of Care Provided Minutes Spent on Discharge: 32 Hospital Course: Per HPI: MARIYA ORTA, is a 72 M with a significant history of hypertension, hyperlipidemia, diabetes mellitus who presents emergency department with 4-day history of double vision. Of note his symptoms started with blurred vision. Later on his symptoms progressed to double vision. His symptoms have been persistent. He noticed that when he is covered his right eye which was getting especially closed he could see better. Also he reports of pain in his right eye. Emergency room doctor discussed the case with test inspection engineer who will follow up on consultation. Hospital Course: 1. Right eye ptosis?72-year-old male presented to the hospital from his PCPs office secondary to right eye ptosis as well as blurry vision and some mild eye pain. He states that his blurry vision is little bit improved but he still has difficulty lifting his right eyelid. Denies any significant eye pain with movement. Initial concerns were for either cerebrovascular aneurysms or giant cell arteritis, CTA of the head and neck was unremarkable and ESR was normal with a slightly elevated CRP not significant for giant cell arteritis. He does not have a fever or chills or leukocytosis to indicate any periorbital cellulitis and there were not any skin changes on my exam. MRI was unremarkable for stroke or any type of lesion. With one of his test inspection engineer partners who felt that he would be safe for discharge with close follow-up this week. I discussed the plan for discharge with him and he expressed understanding of the risks and benefits of going home and would like to go home today. 2. Hypertension, hyperlipidemia, type 2 diabetes are all chronic medical conditions which complicate his care. His home medications were continued where appropriate Physical Exam Narrative General: Alert, Oriented x3, Cooperative, No apparent distress HEENT: Atraumatic, PERRLA, EOMI, Normocephalic, right eye ptosis Oral: Moist Mucosa Neck: Supple, No JVD Lungs: Diminished, Normal air movement, No rhonchi, No wheeze, No rales Cardiovascular: Regular rate, Regular Rhythm, Normal S1, Normal S2, No murmurs Abdomen: Soft, Non Tender, Non-Distended, No Hepato-splenomegaly Extremities: No edema, Capillary Refill Less than 3 Seconds Skin: No rashes, No breakdown Musculoskeletal: No Tenderness to Palpation of Joints or Extremities Neurological: Motor Exam 5/5 strength throughout, Sensory exam intact to light touch and pain Psych/Mental Status: Normal Affect, Appropriate Weight / BMI Weight Weight: 309 lb 4.937 oz Body Mass Index (BMI) 49.9 ABG / Lab / Microbiology Data 04/29/23 04:51 04/29/23 04:51 Laboratory: Laboratory Results - last 24 hr 04/28/23 16:24: WBC 10.7, RBC 5.33, Hgb 15.8, Hct 49.3, MCV 92.5, MCH 29.6, MCHC 32.0, RDW Std Deviation 47.0 H, RDW Coeff of Naldo 13.8, Plt Count 192, MPV 10.4, Immature Gran % (Auto) 0.700, Neut % (Auto) 61.9, Lymph % (Auto) 20.8, [place] % (Auto) 9.1, Eos % (Auto) 6.7 H, Baso % (Auto) 0.8, Absolute Neuts (auto) 6.6, Absolute Lymphs (auto) 2.23, Nucleated RBC % 0, ESR 8, PT 13.3, INR 1.0, APTT 26.7, Sodium 139, Potassium 3.9, Chloride 103, Carbon Dioxide 27.0, Anion Gap 9, BUN 17, Creatinine 1.15, Est GFR (MDRD) Af Amer 81, Est GFR (MDRD) Non-Af 67, BUN/Creatinine Ratio 14.8, Glucose 122 H, Calcium 9.1, C-React Prot Ext Range 5.69 H 04/28/23 21:50: POC Glucose 110 H 04/29/23 04:51: WBC 8.8, RBC 5.16, Hgb 15.5, Hct 47.1, MCV 91.3, MCH 30.0, MCHC 32.9, RDW Std Deviation 46.9 H, RDW Coeff of Naldo 13.8, Plt Count 178, MPV 10.9, Immature Gran % (Auto) 0.600, Neut % (Auto) 61.0, Lymph % (Auto) 20.5, [place] % (Auto) 9.9, Eos % (Auto) 7.1 H, Baso % (Auto) 0.9, Absolute Neuts (auto) 5.4, Absolute Lymphs (auto) 1.81, Nucleated RBC % 0, Sodium 139, Potassium 4.2, Chloride 106, Carbon Dioxide 28.0, Anion Gap 5, BUN 14, Creatinine 0.85, Estim Creat Clear Calc 71.93, Est GFR (MDRD) Af Amer 114, Est GFR (MDRD) Non-Af 94, BUN/Creatinine Ratio 16.4, Glucose 138 H, Hemoglobin A1c 7.3 H, Calcium 8.8, Triglycerides 184, Cholesterol 148, LDL Cholesterol 71, VLDL Cholesterol 37, HDL Cholesterol 40 04/29/23 12:18: POC Glucose 144 H Radiography Diagnostic Testing: Radiology Impression Head/Neck CTA 04/28/23 16:22 IMPRESSION: No hemodynamically significant stenosis. Electronically Signed: Issa Rider DO at 18:14 EDT Reading Location ID and State: [facility] / [place] Tel [phone], Service support , Echocardiogram 04/28/23 20:58 Interpretation Summary Normal LV size. Left ventricular systolic function is normal. The estimated ejection fraction is 55 %. Moderate concentric left ventricular hypertrophy. Stage 2 diastolic dysfunction. Contrast injection was performed. Ordering Physician: El James Referring Physician: Javan Wells Performed By: Constance Bond RCS Brain MRI 04/29/23 20:58 IMPRESSION: No evidence for acute infarct. Mild chronic involutional and white matter changes. Electronically Signed: Arabella Del Valle MD at 11:19 EDT , D/C Instructions Discharge Diet: Carb Control Diet Call your doctor if you observe: Fever of 101 or Higher, Shortness of breath, Dizziness, Fainting spells, Swelling in the ankles, Chest pain and Increased palpitations (irregular heartbeat) Meaningful Use Info Meaningful Use Diagnoses (Choose all that apply): None applicable Discharge Plan Admission Admit Date/Time: 04/28/23 19:14 Attending Provider: Mo Foley Primary Care Provider: Javan Wells Consulting Providers: El James Discharge Orders/Prescriptions Prescriptions: Continued Janumet 50-1,000 mg tablet 1 tab PO BID glimepiride 4 mg tablet 4 mg PO .daily @ dinner lisinopril 10 mg tablet 20 mg PO DAILY aspirin 81 MG tablet,chewable 81 mg PO DAILY@0800 Patient Comments: ANTIPLATELET multivitamin with folic acid 1 TABLET tablet 1 tab PO DAILY Patient Comments: MULTI VITAMIN isosorbide mononitrate 30 mg tablet extended release 24 hr 30 mg PO DAILY Qty: 90 4RF metoprolol tartrate 25 mg tablet 25 mg PO BID Qty: 180 3RF empagliflozin 25 mg tablet 25 mg PO QDAY Qty: 90 3RF atorvastatin 40 mg tablet 40 mg PO QDAY Qty: 90 3RF Referrals / Follow Up: Javan Wells MD [Primary Care Provider] - In 1 Week Doron Luong MD [Med Staff - Active Staff] - (This week at [facility]) Disposition Disposition (needs filled in before D/C Order can be placed): Home, Self Care Charges/Coding Visit Charges Inpatient E&M: 58308 Disch Hosp >30min
--- NOTE | 2023-04-29 20:58 | MRI_ITS ---
HISTORY: stroke, RT EYE DROOPING CLOSED, BLURRED VISION. TECHNIQUE: Multiplanar and multisequence MR images of the brain were obtained without contrast. 301 images. COMPARISON: CT prior day, MRI 06/08/2013. FINDINGS: BRAIN PARENCHYMA: Mild foci of increased T2 FLAIR signal in the bilateral cerebral white matter. Chronic small left occipital cyst. No abnormal focus of restricted diffusion. No acute intracranial hemorrhage identified. CSF SPACES: Mild generalized volume loss. No significant midline shift or other mass effect.No extra-axial fluid collection. VASCULAR SYSTEM: Major intracranial flow voids are maintained. PARANASAL SINUSES AND MASTOID AIR CELLS: No significant air fluid levels. ORBITS: Bilateral lens resections. MRI/Brain without Contrast IMPRESSION: No evidence for acute infarct. Mild chronic involutional and white matter changes. Electronically Signed: Arabella Del Valle MD at 11:19 EDT ,
== END 2023-04-29 11:32 | disposition home or self-care (01) ==
LOC: ED 19:16 → PCU 19:27
PROVIDERS: Admitting Provider Hospitalist; Emergency Provider Emergency Medicine; PCP Family Medicine; Visit Provider Family Medicine
DX: H49.00 Third [oculomotor] nerve palsy, unspecified eye (principal); E11.51 Type 2 diabetes mellitus with diabetic peripheral angiopathy without gangrene; I25.10 Atherosclerotic heart disease of native coronary artery without angina pectoris; I10 Essential (primary) hypertension; H53.8 Other visual disturbances; Z79.82 Long term (current) use of aspirin; R79.82 Elevated C-reactive protein (CRP); Z79.84 Long term (current) use of oral hypoglycemic drugs; E78.00 Pure hypercholesterolemia, unspecified; H53.2 Diplopia; Z79.899 Other long term (current) drug therapy; R29.90 Unspecified symptoms and signs involving the nervous system
CPT/HCPCS: 36415; 70496; 70498; 70551; 80048; 80061; 82962; 83036; 85025; 85610; 85652; 85730; 86140; 93005; 93306; 94762; 96372; 99221; 99285; J7030; Q9957; Q9967; A4216; C8929; G0378

== ENCOUNTER → 2023-04-28 | Outpatient (CLI) | payer MEDICARE, SELFPAY ==
[2023-04-28 18:28] LABS: Erythrocyte Sedimentation Rate 3 mm/hr (0-20)
== END | disposition home or self-care (01) ==
LOC: MFPLAB 14:33
PROVIDERS: PCP Family Medicine; Visit Provider Family Medicine
DX: H53.2 Diplopia (principal)
CPT/HCPCS: 36415

== ENCOUNTER → 2023-11-26 | Outpatient (CLI) | payer MEDICARE, SELFPAY ==
[2023-11-26 10:35] LABS: Anion Gap 8 (5-15); BUN 18 mg/dL (7-18); BUN/Creat Ratio 19.7 RATIO (10-20); Calcium,Total 9.2 mg/dL (8.5-10.1); Chloride 105 mmol/L (98-107); Cholesterol 155 mg/dL (200); Creatinine, Serum 0.92 mg/dL (0.70-1.30); EST Glomerular Filtration Rate 87 mL/min (>60); Est Glom Filt Rate - Afr Amer 105 mL/min (>60); Glucose 163 mg/dL (74-106); High Density Lipoprotein 43 mg/dL; Potassium 4.3 mmol/L (3.5-5.1); Sodium Level 136 mmol/L (136-145); Triglycerides 234 mg/dL; Very Low Density Lipoprotein 47 mg/dL (5-40)
== END | disposition home or self-care (01) ==
LOC: MFPLAB 08:47
PROVIDERS: PCP Family Medicine; Visit Provider Family Medicine
DX: E11.69 Type 2 diabetes mellitus with other specified complication (principal)
CPT/HCPCS: 36415; 80048; 80061

== ENCOUNTER → 2024-06-07 | Outpatient (CLI) | payer MEDICARE, SELFPAY ==
[2024-06-07 13:27] LABS: ALB/GLOB Ratio 0.8 RATIO (0.9-2.4); AST(SGOT) 30 U/L (15-37); Alanine Aminotransfer ALT/SGPT 35 U/L (16-61); Albumin, Serum 3.6 g/dL (3.2-5.0); Alkaline Phosphatase 73 U/L (45-117); Anion Gap 6 (5-15); BUN 22 mg/dL (7-18); BUN/Creat Ratio 24.2 RATIO (10-20); Calcium,Total 9.3 mg/dL (8.5-10.1); Chloride 104 mmol/L (98-107); Cholesterol 135 mg/dL (200); Creatinine, Serum 0.91 mg/dL (0.70-1.30); EST Glomerular Filtration Rate 87 mL/min (>60); Est Glom Filt Rate - Afr Amer 105 mL/min (>60); Globulin 4.4 g/dL (2.2-4.2); Glucose 149 mg/dL (74-106); High Density Lipoprotein 42 mg/dL; Potassium 4.2 mmol/L (3.5-5.1); Sodium Level 134 mmol/L (136-145); Triglycerides 211 mg/dL; Very Low Density Lipoprotein 42 mg/dL (5-40)
== END | disposition home or self-care (01) ==
LOC: MFPLAB 09:32
PROVIDERS: PCP Family Medicine; Visit Provider Family Medicine
DX: E11.69 Type 2 diabetes mellitus with other specified complication (principal)
CPT/HCPCS: 36415; 80053; 80061

== ENCOUNTER → 2024-09-13 | Outpatient (CLI) | payer MEDICARE, SELFPAY ==
[2024-09-13 11:00] LABS: ALB/GLOB Ratio 0.8 RATIO (0.9-2.4); AST(SGOT) 28 U/L (15-37); Alanine Aminotransfer ALT/SGPT 37 U/L (16-61); Albumin, Serum 3.6 g/dL (3.2-5.0); Alkaline Phosphatase 71 U/L (45-117); Anion Gap 6 (5-15); BUN 17 mg/dL (7-18); BUN/Creat Ratio 18.2 RATIO (10-20); Calcium,Total 9.1 mg/dL (8.5-10.1); Chloride 105 mmol/L (98-107); Cholesterol 125 mg/dL (200); Creatinine, Serum 0.93 mg/dL (0.70-1.30); EST Glomerular Filtration Rate 84 mL/min (>60); Est Glom Filt Rate - Afr Amer 102 mL/min (>60); Globulin 4.4 g/dL (2.2-4.2); Glucose 132 mg/dL (74-106); High Density Lipoprotein 43 mg/dL; Potassium 4.3 mmol/L (3.5-5.1); Sodium Level 137 mmol/L (136-145); Triglycerides 140 mg/dL; Very Low Density Lipoprotein 28 mg/dL (5-40)
== END | disposition home or self-care (01) ==
LOC: MFPLAB 09:08
PROVIDERS: PCP Family Medicine; Referring Provider Family Medicine; Visit Provider Family Medicine
DX: E11.69 Type 2 diabetes mellitus with other specified complication (principal)
CPT/HCPCS: 36415; 80053; 80061

== ENCOUNTER → 2025-05-02 | Outpatient (CLI) | payer MEDICARE, SELFPAY ==
--- NOTE | 2025-05-02 09:50 | ECHOCS_ITS ---
Reason For Study : Murmur Procedure This was a 2D Doppler, Color Flow transthoracic echocardiogram. The study was technically difficult. Exam performed in department. Left Ventricle Normal LV size. The left ventricular ejection fraction is 50 %. Stage 1 diastolic dysfunction. No regional wall motion abnormalities noted. Right Ventricle Normal RV size. Normal systolic function. Atria Normal left atrium. Normal right atrium. Mitral Valve There is mild mitral annular calcification. Tricuspid Valve Normal tricuspid valve. Mild (1+) tricuspid valve insufficiency. Pulmonary artery systolic pressure is 28 mmHg. Aortic Valve Trisinus/trileaflet aortic valve. Mild focal aortic valve thickening. Mild aortic stenosis. Pulmonic Valve Normal pulmonic valve. Great Vessels Normal aortic root. Mildly calcified aortic root. The pulmonary artery is normal size. Inferior vena cava collapse with respiration. Pericardium/Pleural No pericardial effusion. Medication 22 gauge I.V. with prn adaptor inserted into right arm. Diluted definity 1.5ml given slow IV push to enhance endocardial definition. MMode/2D Measurements & Calculations LVIDd: 5.0 cm IVSd: 0.96 cm LVOT diam: 2.0 cm LVIDs: 3.8 cm LVPWd: 0.85 cm RVDd: 4.2 cm FS: 23.8 % LVOT area: 3.2 cm2 Ao root diam: 3.4 cm LAV(MOD-bp): 55.0 ml LVAd ap4: 37.1 cm2 LAV(MOD-bp) Indexed: 23.2 ml/m2 LVLd ap4: 8.6 cm LAV(MOD-sp2): 53.7 ml EDV(MOD-sp4): 129.1 ml LAV(MOD-sp4): 52.5 ml EDV(sp4-el): 136.4 ml LVAs ap4: 24.8 cm2 LVLs ap4: 7.8 cm ESV(MOD-sp4): 66.6 ml ESV(sp4-el): 67.3 ml EF(MOD-sp4): 48.4 % EF(sp4-el): 50.6 % SV(MOD-sp4): 62.5 ml SV(sp4-el): 69.1 ml Ao sinus diam: 3.2 cm SI(MOD-sp4): 26.4 ml/m2 Ao ST Junction: 2.3 cm LA A4 area: 19.0 cm2 LA dimension(2D): 4.6 cm RA A4 area: 15.4 cm2 Time Measurements MV dec time: 0.26 sec Doppler Measurements & Calculations MV E max kevon: 95.5 cm/sec Lat Peak E' Kevon: 11.9 cm/sec Med Peak E' Kevon: 7.6 cm/sec MV A max kevon: 111.6 cm/sec E/E' lat: 8.0 E/E' med: 12.7 MV E/A: 0.86 MV V2 max: 124.7 cm/sec MV P1/2t max kevon: 109.7 cm/sec Ao V2 max: 164.8 cm/sec MV max P.2 mmHg MV P1/2t: 86.2 msec Ao max P.9 mmHg MV V2 mean: 69.0 cm/sec MV dec slope: 372.6 cm/sec2 Ao V2 mean: 105.0 cm/sec MV mean P.3 mmHg Ao mean P.2 mmHg MV V2 VTI: 36.6 cm MVA(P1/2t): 2.6 cm2 Ao V2 VTI: 36.5 cm MVA(VTI): 2.1 cm2 AV (velocity ratio): 0.64 GRABIEL(I,D): 2.1 cm2 GRABIEL(V,D): 2.0 cm2 LV V1 max: 101.9 cm/sec SV(LVOT): 75.0 ml PA V2 max: 109.6 cm/sec LV V1 max P.2 mmHg PA V2 mean: 77.0 cm/sec LV V1 mean P.2 mmHg LV V1 mean: 68.9 cm/sec LV V1 VTI: 23.3 cm TR max kevon: 243.1 cm/sec TR max P.0 mmHg ECHO/Echo Complete W/ Contrast Interpretation Summary Normal LV size. The left ventricular ejection fraction is 50 %. Stage 1 diastolic dysfunction. Pulmonary artery systolic pressure is 28 mmHg. Mild aortic stenosis. Mild focal aortic valve thickening. Contrast injection was performed. Ordering Physician: Levy Velasquez Referring Physician: Levy Velasquez Performed By: Janes Maya RCS
== END | disposition home or self-care (01) ==
LOC: CVS 09:49
PROVIDERS: PCP Family Medicine; Referring Provider Student in an Organized Health Care Education/Training Program; Visit Provider Student in an Organized Health Care Education/Training Program
DX: R01.1 Cardiac murmur, unspecified (principal)
CPT/HCPCS: 93306; Q9957; A4216; C8929

== ENCOUNTER → 2025-06-15 | Outpatient (CLI) | payer MEDICARE, SELFPAY ==
[2025-06-15 18:05] LABS: Hematocrit 49.9 % (40-54); Hemoglobin 17.1 g/dL (13.0-16.5); Immature Granulocytes Count 0.090 X10^3/uL (0.0-0.0); Mean Corp Hgb Conc 34.3 g/dL (32-36); Mean Corpuscular Volume 87.7 fL (80-94); Mean Platelet Vol. 10.9 fl (6.2-12.0); NRBC Flagged by Analyzer 0 % (0-5); Platelet Count 205 K/mm3 (150-450); RBC Distribution Width CV 13.4 % (11.6-14.6); RBC Distribution Width SD 43.3 fl (35.1-43.9); Red Blood Count 5.69 M/mm3 (4.6-6.2); White Blood Count 13.1 K/mm3 (4.4-11.0)
[2025-06-15 18:48] LABS: AST(SGOT) 28 U/L (<=37); Alanine Aminotransfer ALT/SGPT 39 U/L (<=46); Albumin, Serum 3.9 g/dL (3.4-4.8); Alkaline Phosphatase 195 U/L (40-129); Anion Gap 16 (5-15); BUN 15 mg/dL (4-19); BUN/Creat Ratio 21.2 RATIO (10-20); Calcium,Total 9.8 mg/dL (7.6-11.0); Carbon Dioxide 21.1 mmol/L (21.0-32.0); Chloride 95 mmol/L (98-108); Globulin 4.2 g/dL (2.2-4.2); Glucose 228 mg/dL (70-99); Lipase 149 U/L (13-75); Potassium 4.0 mmol/L (3.3-5.1)
== END | disposition home or self-care (01) ==
LOC: MFPLAB 15:54
PROVIDERS: PCP Family Medicine; Visit Provider Family Medicine
DX: R10.9 Unspecified abdominal pain (principal)
CPT/HCPCS: 36415; 80053; 83690; 85025

== ENCOUNTER 2025-06-16 12:04 | Emergency (ER) | payer MEDICARE, SELFPAY ==
[2025-06-16 12:05] VITALS: BP 118/81; PULSE 104; RESP 18; TEMP 36.6; O2SAT 98; BMI 46.3
--- NOTE | 2025-06-16 12:30 | CT_ITS ---
PROCEDURE: CT/Abdomen/Pelvis without Cont
--- NOTE | 2025-06-16 12:40 | ED.VIS.GI ---
HPI HPI - GI History of Present Illness Chief Complaint: Abd Pain Narrative Narrative: Patient is a 74-year-old male presenting to the emergency department for a CT of his abdomen. He was seen by his PCP Dr. Wells yesterday and had blood work done that showed elevated lipase, alk phos and total bilirubin. Therefore a CT of his abdomen was ordered however he was called and told that his insurance would not cover an outpatient CT. patient states that starting on Friday he had right sided abdominal discomfort. States his last bowel movement was on Friday but he is still passing gas. He endorses nausea with 2 episodes of nonbilious, nonbloody vomiting on Friday. States since then he has not been able to eat or drink as much without feeling very full. He denies fever, chills, chest pain, shortness of breath, dysuria, hematuria, diarrhea. Denies any history of abdominal surgeries. Prior similar symptoms: No PFSH PFSH Medical History Non-smoker Hypertension Pure hypercholesterolemia Atherosclerotic heart disease of [place] coronary artery without angina pectoris Intermittent claudication Diabetes mellitus CAD (coronary artery disease) Other penitentiary (current) drug therapy Arteriosclerotic coronary artery disease Essential (primary) hypertension Hyperlipidemia Home Medications ?Medication ?Instructions ?Recorded ?Last Taken ?Type aspirin 81 mg chewable tablet 81 mg PO DAILY@0800 06/08/13 06/12/25 History multivitamin with folic acid 400 1 tab PO DAILY supplement 06/08/13 06/12/25 History mcg tablet sitagliptin phosphate 50 1 tab PO BID blood sugar 07/02/18 06/12/25 History mg-metformin 1,000 mg tablet (Janumeemerson) glimepiride 4 mg tablet 4 mg PO .daily @ dinner blood sugar 01/05/21 06/12/25 History metoprolol tartrate 25 mg tablet 25 mg PO BID blood pressure #180 09/20/24 06/12/25 Rx tabs empagliflozin 25 mg tablet 25 mg PO QDAY blood sugar #90 tabs 10/20/24 06/12/25 Rx isosorbide mononitrate 30 mg 30 mg PO DAILY heart #90 tabs 11/10/24 06/12/25 Rx tablet,extended release 24 hr semaglutide 0.25 mg or 0.5 mg (2 0.25 mg subcut QWEEK blood sugar 03/28/25 06/15/25 History mg/3 mL) subcutaneous pen injector (Ozempic) atorvastatin 40 mg tablet 40 mg PO QHS cholesterol 06/16/25 06/11/25 History lisinopril 20 mg tablet 20 mg PO DAILY heart 06/16/25 06/12/25 History Allergy/AdvReac Type Severity Reaction Status Date / Time Penicillins Allergy Unknown Verified 06/16/25 12:07 Family History Mother CAD (coronary artery disease) cabg Diabetes Brother pacemaker Father Diabetes Surgical History History of cardiac cath (~03/2012) Social History Smoking Status: Never smoker alcohol intake: never substance use type: does not use caffeine: Yes Type: coffee Number of servings: 12 what type of physical activity do you participate in: none seatbelt use: never do you feel safe at home: Yes ROS ROS ED ROS Narrative see HPI EXAM Physical Exam Narrative Exam Narrative: Vital signs: Reviewed General: Alert and oriented x 3. No acute distress HEENT: Head is normocephalic and atraumatic, sinuses nontender, pupils equal round and reactive. No scleral icterus. Nares are patent. Oropharynx and throat exams normal. Neck: Supple without lymphadenopathy nontender Cardiovascular: Regular rate and rhythm, no murmurs. No rubs or gallops. Normal S1 and S2 Respiratory: Clear to auscultation bilaterally. No wheezes, rales, rhonchi Abdominal: Soft and protuberant. Nontender. Normal bowel sounds. No guarding or rebound. Nonsurgical abdomen Extremities: No tenderness. No bruising. Normal range of motion. Normal sensation. Skin: No rash or redness. No jaundice. Neurological: Cranial nerves II through XII are grossly intact. Normal strength and sensation. Normal cerebellar function The rest of the physical exam is unremarkable Const Vital Signs: 06/16/25 12:05 06/16/25 14:09 Temperature 97.8 F Temperature Source Oral Pulse Rate 104 H 71 Respiratory Rate 18 16 Blood Pressure 118/81 H 148/81 H Blood Pressure Mean 93 103 Pulse Ox 98 98 Oxygen Delivery Method Room Air Room Air MDM MDM MDM Narrative Medical decision making narrative: Patient is a 74-year-old male presenting to emergency department for. Patient was seen and examined. Vitals are stable. Patient resting bed comfortably no acute distress. Labs reviewed from yesterday which revealed a elevated lipase, alk phos and total bilirubin. He also had a mild leukocytosis of 13. Patient already drink the oral contrast dye at home and we will proceed with CT of his abdomen. Will repeat blood work. CBC today shows no leukocytosis and a normal hemoglobin. BMP shows no significant abnormalities, mild hyponatremia 131. Liver profile with elevated total bilirubin of 1.31 and direct bilirubin of 0.51. Normal AST, ALT, alk phos and lipase which has markedly improved since yesterday. CT of the abdomen pelvis shows findings suggestive of small gallstones and sludge within the gallbladder lumen. Findings in keeping with the acute pancreatitis with a peripancreatic inflammatory changes without evidence of fluid or pseudocyst collection at this time. Sigmoid diverticulosis. Right upper quadrant ultrasound shows hepatomegaly and a fatty infiltration of the liver. Sludge is seen within the gallbladder lumen. Mild degree of gallbladder wall thickening. Pancreas is obscured due to overlying bowel gas. Given the resolved lab findings and CT/ultrasound findings I concern for possible choledocholithiasis that has now improved. Total bilirubin is still elevated however on chart review it appears that it is baseline elevated. Patient's pain is under control here he has not required anything for pain. He has had no nausea and vomiting while here. I think it is appropriate that the patient be managed outpatient given I think the obstruction has resolved. General surgery oracle fusion middleware developer, Dr. Edmond consulted for recommendations. He agrees with the plan, thinks it is likely a resolved biliary obstruction. States he can follow-up with him in the office outpatient for possible cholecystectomy. I discussed the plan with the patient and son at bedside. They were given very strict return precautions if you have any pain, nausea, vomiting, fevers or jaundice. Again, patient is not in any pain, there is evidence of pancreatitis on his CT but is not symptomatic and this can be managed outpatient in terms of the pancreatitis. Patient discharged from the Emergency Department. I do not feel that the patient's evaluation reveals any acute reason for admission at this time. I instructed them to either follow-up with their primary care physician or promptly return to the Emergency Department for reevaluation should symptoms worsen or new symptoms develop. I explained what symptoms would indicate the need to return to the emergency department. Shared decision making was used. The patient voiced understanding of the treatment plan and is agreeable with it. Clinical impression Pancreatitis Elevated total bilirubin History & Record Review Discussion w/independent historian: Patient and Family Additional record(s) reviewed:: Prior labs Lab Data Attestation: I reviewed the patient's lab results. Labs: Laboratory Results - last 24 hr 06/16/25 06/16/25 06/16/25 12:30 12:30 13:30 WBC Cancelled 10.1 Corrected WBC Cancelled RBC Cancelled 5.23 Hgb Cancelled 15.9 Hct Cancelled 45.0 MCV Cancelled 86.0 MCH Cancelled 30.4 MCHC Cancelled 35.3 RDW Std Deviation Cancelled 41.7 RDW Coeff of Naldo Cancelled 13.3 Plt Count Cancelled 203 MPV Cancelled 10.4 Immature Gran % (Auto) Cancelled 0.900 Neut % (Auto) Cancelled 74.0 H Lymph % (Auto) Cancelled 12.3 L [place] % (Auto) Cancelled 9.8 Eos % (Auto) Cancelled 2.3 Baso % (Auto) Cancelled 0.7 Absolute Neuts (auto) Cancelled 7.5 Absolute Lymphs (auto) Cancelled 1.24 Total Counted Cancelled Neutrophils % (Manual) Cancelled Band Neutrophils % Cancelled Lymphocytes % (Manual) Cancelled Monocytes % (Manual) Cancelled Eosinophils % (Manual) Cancelled Basophils % (Manual) Cancelled Metamyelocytes % Cancelled Myelocytes % Cancelled Promyelocytes % Cancelled Blast Cells % Cancelled Plasma Cell % (Manual) Cancelled Other Cells % Cancelled Nucleated RBC % Cancelled 0 Nucleated RBCs/100 WBC Cancelled Differential Comment Cancelled Diff Path Review Cancelled Hypersegmented Neuts Cancelled Atypical Lymphocytes Cancelled Reactive Lymphocytes Cancelled Smudge Cells Cancelled Toxic Granulation Cancelled Toxic Vacuolation Cancelled Dohle Bodies Cancelled Kartik Rods Cancelled Platelet Estimate Cancelled Plt Morphology Comment Cancelled RBC Morphology Cancelled Cancelled Polychromasia Cancelled Hypochromasia Cancelled Basophilic Stippling Cancelled Anisocytosis Cancelled Microcytosis Cancelled Macrocytosis Cancelled Spherocytes Cancelled Sickle Cells Cancelled Target Cells Cancelled Tear Drop Cells Cancelled Ovalocytes Cancelled Stomatocytes Cancelled Boy[place] Bodies Cancelled Julissa Cells Cancelled Bite Cells Cancelled Crenated Cell Cancelled Acanthocytes (Spur) Cancelled Rouleaux Cancelled Schistocytes Cancelled Sodium 131 L Potassium 3.5 Chloride 95 L Carbon Dioxide 22.9 Anion Gap 13 BUN 16 Creatinine 0.73 Estim Creat Clear Calc 105.12 Est GFR (MDRD) Non-Af 96 BUN/Creatinine Ratio 21.8 H Glucose 174 H Calcium 9.3 Total Bilirubin 1.31 H Direct Bilirubin 0.51 H AST 33 ALT 39 Alkaline Phosphatase 102 Total Protein 7.6 Albumin 3.6 Globulin 4.1 Lipase 66 Radiography Diagnostic Testing: Clinical Impression(s) from Imaging Studies Abdomen/Pelvis CT 06/16/25 12:30 IMPRESSION: Findings suggestive of small gallstones and sludge within the gallbladder lumen. Findings in keeping with the acute pancreatitis with a peripancreatic inflammatory changes without evidence of fluid or pseudocyst collection at this time. Sigmoid diverticulosis. Reading Location: [facility] Abdomen Ultrasound 06/16/25 13:37 IMPRESSION: Hepatomegaly and fatty infiltration of the liver. Sludge is seen within the gallbladder lumen. Mild degree of gallbladder wall thickening. The pancreas is obscured due to overlying bowel gas. Reading Location: [facility] Discharge Plan Triage Chief Complaint: Abd Pain ED Provider: Alicia Ward Dx/Rx/DC Orders Clinical Impression: Pancreatitis, Total bilirubin, elevated, Gallbladder sludge Instructions: Understanding Pancreatitis, Gallstones Dc, ED Pancreatitis Prescriptions: No Action Janumet 50-1,000 mg tablet 1 tab PO BID glimepiride 4 mg tablet 4 mg PO .daily @ dinner Ozempic 0.25 mg or 0.5 mg (2 mg/3 mL) pen injector 0.25 mg subcut QWEEK Rx Instructions: for 4 weeks aspirin 81 MG tablet,chewable 81 mg PO DAILY@0800 Patient Comments: ANTIPLATELET multivitamin with folic acid 1 TABLET tablet 1 tab PO DAILY Patient Comments: MULTI VITAMIN lisinopril 20 mg tablet 20 mg PO DAILY atorvastatin 40 mg tablet 40 mg PO QHS metoprolol tartrate 25 mg tablet 25 mg PO BID Qty: 180 3RF empagliflozin 25 mg tablet 25 mg PO QDAY Qty: 90 3RF isosorbide mononitrate 30 mg tablet extended release 24 hr 30 mg PO DAILY Qty: 90 4RF Primary Care Provider: Javan Wells Referrals: Javan Wells MD [Primary Care Provider, Family Practice] Corey Edmond MD [Med Staff - Active Staff, General Surgery] - As soon as possible Activity Restrictions/Additional Instructions: Follow-up with the general surgeon below as soon as possible. If you develop any new or worsening symptoms as discussed including abdominal pain, nausea, vomiting, fevers or any signs of jaundice you need to return to the emergency department immediately. Print Language: Citizen Of [place] Disposition Disposition: Home, Self Care Discharge Date/Time: 06/16/25 16:26
--- NOTE | 2025-06-16 13:37 | US_ITS ---
PROCEDURE: US/Abdomen Limited
[2025-06-16 13:39] LABS: Hematocrit 45.0 % (40-54); Hemoglobin 15.9 g/dL (13.0-16.5); Immature Granulocytes Count 0.090 X10^3/uL (0.0-0.0); Mean Corp Hgb Conc 35.3 g/dL (32-36); Mean Corpuscular Volume 86.0 fL (80-94); Mean Platelet Vol. 10.4 fl (6.2-12.0); NRBC Flagged by Analyzer 0 % (0-5); Platelet Count 203 K/mm3 (150-450); RBC Distribution Width CV 13.3 % (11.6-14.6); RBC Distribution Width SD 41.7 fl (35.1-43.9); Red Blood Count 5.23 M/mm3 (4.6-6.2); White Blood Count 10.1 K/mm3 (4.4-11.0)
[2025-06-16 14:09] VITALS: BP 148/81; PULSE 71; RESP 16; O2SAT 98
[2025-06-16 14:31] LABS: AST(SGOT) 33 U/L (<=37); Alanine Aminotransfer ALT/SGPT 39 U/L (<=46); Albumin, Serum 3.6 g/dL (3.4-4.8); Alkaline Phosphatase 102 U/L (40-129); Anion Gap 13 (5-15); BUN 16 mg/dL (4-19); BUN/Creat Ratio 21.8 RATIO (10-20); Bilirubin, Direct 0.51 mg/dL (0.00-0.30); Calcium,Total 9.3 mg/dL (7.6-11.0); Carbon Dioxide 22.9 mmol/L (21.0-32.0); Chloride 95 mmol/L (98-108); Estimated Creatinine Clearance 105.12 ml/min (50-250); Globulin 4.1 g/dL (2.2-4.2); Glucose 174 mg/dL (70-99); Lipase 66 U/L (13-75); Potassium 3.5 mmol/L (3.3-5.1)
[2025-06-16 16:25] VITALS: BP 145/70; PULSE 70; RESP 16; TEMP 36.7; O2SAT 95
== END 2025-06-16 16:26 | disposition home or self-care (01) ==
PROVIDERS: Emergency Provider Student in an Organized Health Care Education/Training Program; PCP Family Medicine; Visit Provider Student in an Organized Health Care Education/Training Program
DX: R10.9 Unspecified abdominal pain (principal); E11.9 Type 2 diabetes mellitus without complications; K85.90 Acute pancreatitis without necrosis or infection, unspecified; I10 Essential (primary) hypertension; I25.10 Atherosclerotic heart disease of native coronary artery without angina pectoris; K83.8 Other specified diseases of biliary tract; E78.00 Pure hypercholesterolemia, unspecified; R17 Unspecified jaundice; Z79.82 Long term (current) use of aspirin; Z79.84 Long term (current) use of oral hypoglycemic drugs; Z79.85 Long-term (current) use of injectable non-insulin antidiabetic drugs; Z79.899 Other long term (current) drug therapy
CPT/HCPCS: 74176; 76705; 80048; 80076; 83690; 85025; 99283; Q9967; A4216

== ENCOUNTER → 2025-07-11 | Outpatient (CLI) | payer MEDICARE, SELFPAY ==
[2025-07-11 11:29] LABS: AST(SGOT) 23 U/L (<=37); Alanine Aminotransfer ALT/SGPT 23 U/L (<=46); Albumin, Serum 4.0 g/dL (3.4-4.8); Alkaline Phosphatase 80 U/L (40-129); Anion Gap 12 (5-15); BUN 16 mg/dL (4-19); BUN/Creat Ratio 21.8 RATIO (10-20); Calcium,Total 9.5 mg/dL (7.6-11.0); Carbon Dioxide 24.0 mmol/L (21.0-32.0); Chloride 102 mmol/L (98-108); Cholesterol 154 mg/dL (<=200); Globulin 3.7 g/dL (2.2-4.2); Glucose 109 mg/dL (70-99); Low Density Lipoprotein Calc. 83 mg/dL; Potassium 4.4 mmol/L (3.3-5.1); Triglycerides 178 mg/dL; Very Low Density Lipoprotein 36 mg/dL (5-40); cholesterol:hdl ratio screen 3.81
== END | disposition home or self-care (01) ==
LOC: MFPLAB 08:22
PROVIDERS: PCP Family Medicine; Visit Provider Family Medicine
DX: E11.69 Type 2 diabetes mellitus with other specified complication (principal); E66.01 Morbid (severe) obesity due to excess calories; R10.9 Unspecified abdominal pain
CPT/HCPCS: 36415; 80053; 80061; 83036

== ENCOUNTER 2025-08-15 09:49 | Day surgery (SDC) | payer MEDICARE, SELFPAY ==
--- NOTE | 2025-08-04 06:42 | EKG12_ITS ---
Test Reason : PRE OP Blood Pressure : */* mmHG Vent. Rate : 70 BPM Atrial Rate : 70 BPM P-R Int : 270 ms QRS Dur : 94 ms QT Int : 406 ms P-R-T Axes : 4 -50 22 degrees QTcB Int : 438 ms Sinus rhythm with 1st degree A-V block Left axis deviation Possible Anterolateral infarct , age undetermined Abnormal ECG Confirmed by Milton Esparza ([id number]), commercial production editor RADHA RUFF ([id number]) on 08/05/2025 9:40:35 AM Referred By: Anthony Mata Confirmed By: Milton Esparza
--- NOTE | 2025-08-04 17:27 | PAT.ANESEVAL ---
Pre-Assessment Diagnosis/Proposed Procedure Planned Operative Procedure(s): ROBOTIC SHANE Anesthesia History Anesthesia History - environmental professional: Anesthesia History - environmental professional Hx Hospitalization No 08/01/25 14:22 Any Problems With Anesthesia No 08/01/25 14:22 Cholinesterase deficiency No 08/01/25 14:22 You/Your Family Experience No 08/01/25 14:22 fever (hyperthermia) with Relationship Recent Exposure to Contagious No 06/08/13 15:28 Disease Does patient have nerve No 08/01/25 14:22 stimulator Patient instructed to have device shut off --Does patient have Pacemaker or ICD? When Was Last Pacemaker Check QUESTION #4 FULL TEXT: You/Your Family Experience fever (hyperthermia) with Anesthesia Last Oral Intake Last Oral intake: Last Oral Intake NPO since Meds taken in AM with sips of water? Meds patient instructed to take am of surgery PONV PONV - environmental professional: PONV - environmental professional Female No 08/01/25 14:22 HX of Motion Sickness No 08/01/25 14:22 HX of N/V After Surgery No 08/01/25 14:22 Non-Smoker Yes 08/01/25 14:22 Duration of Surgery greater No 08/01/25 14:22 than 60 minutes Number of Risk Factors 1 08/01/25 14:22 PONV Score Low Risk 08/01/25 14:22 Height & Weight Height & Weight: Anesthesia: Height & Weight Height 5 ft 6 in 07/21/25 08:08 Respiratory Assessment Respiratory Assessment - environmental professional: Respiratory Tract Infection Hx - environmental professional Hx Respiratory Tract Infection No 08/01/25 14:22 STOP Sleep Apnea STOP Sleep Apnea - environmental professional: STOP Sleep Apnea - environmental professional Hx Hypertension Yes: CONTROLLED WITH MED 08/01/25 14:22 Hx Sleep Apnea No 08/01/25 14:22 CPAP BIPAP Do you snore loudly (louder Yes 08/01/25 14:22 than talking or can be heard Do you often feel tired/ No 08/01/25 14:22 fatigued/ sleepy during daytime? Has anyone observed you stop No 08/01/25 14:22 breathing during sleep? STOP Results Positive 08/01/25 14:22 QUESTION #5 FULL TEXT : Do you snore loudly (louder than talking or can be heard through closed doors)? 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 confused, unrespo /Reproduction History /Reproductive History - environmental professional: /Reproductive Hx- environmental professional Hx Now No 08/01/25 14:22 Gestational Age (in weeks): EDC: Hx Hx Para Hx Section SAB No 08/01/25 14:22 Does the father of the baby or his family experience fever w Father of the baby Malignant Hypertension history comment Active Medications Active Medications: Current Medications Generic Name Dose Route Start Last Admin Trade Name Freq PRN Reason Stop Dose Admin Indocyanine Green 3.75 mg/ N/A 1.5 mls @ 999 mls/hr 08/15/25 13:00 IV 08/15/25 13:01 PREOP ONE [facility], 1928–1983 Medical History (Updated 08/01/25 @ 14:30 by Alison Perez) Wears glasses Alcohol use Diabetes Arthritis Injury of back Dietary restriction History of diverticulitis Former smoker Asthma Shortness of breath on exertion History of echocardiogram Cardiology follow-up encounter Hypertension Pure hypercholesterolemia Atherosclerotic heart disease of [place] coronary artery without angina pectoris CAD (coronary artery disease) Home Medications ?Medication ?Instructions ?Recorded ?Last Taken ?Type multivitamin with folic acid 400 1 tab PO DAILY supplement 06/08/13 06/12/25 History mcg tablet sitagliptin phosphate 50 2 tab PO BID blood sugar 07/02/18 06/12/25 History mg-metformin 1,000 mg tablet (Angelo) glimepiride 4 mg tablet 4 mg PO BID blood sugar 01/05/21 06/12/25 History metoprolol tartrate 25 mg tablet 25 mg PO BID blood pressure #180 09/20/24 06/12/25 Rx tabs empagliflozin 25 mg tablet 25 mg PO QDAY blood sugar #90 tabs 10/20/24 06/12/25 Rx isosorbide mononitrate 30 mg 30 mg PO DAILY heart #90 tabs 11/10/24 06/12/25 Rx tablet,extended release 24 hr semaglutide 0.25 mg or 0.5 mg (2 0.5 mg subcut WE blood sugar 03/28/25 06/15/25 History mg/3 mL) subcutaneous pen injector ([employer]) atorvastatin 40 mg tablet 40 mg PO QHS cholesterol 06/16/25 06/11/25 History lisinopril 20 mg tablet 20 mg PO DAILY heart 06/16/25 06/12/25 History Allergy/AdvReac Type Severity Reaction Status Date / Time Penicillins Allergy Unknown Verified 08/01/25 14:17 Family History Mother CAD (coronary artery disease) cabg Diabetes Brother pacemaker Father Diabetes Surgical History (Updated 08/01/25 @ 14:30 by Alison Perez) Hx of right cataract extraction Hx of left cataract extraction History of cardiac cath (~03/2012) Social History Smoking Status: Former smoker alcohol intake: never substance use type: does not use caffeine: Yes Type: coffee Number of servings: 12 what type of physical activity do you participate in: none seatbelt use: never do you feel safe at home: Yes Audit: Pertinent Findings Pertinent Findings EKG Perinent findings: EKG 04/28/2023. Sinus bradycardia with sinus arrhythmia with first-degree AV block. Left axis deviation. Echo (EF%) pertinent findings: Echo 05/02/2025. Normal LV size. The left ventricular ejection fraction is 50%. Stage I diastolic dysfunction. Pulmonary artery systolic pressure is 28 mmHg. Mild aortic stenosis. Mild focal aortic valve thickening. Recommendation Anesthesia Recommendation Anesthesia recommendation: OPTIMIZED for anesthesia
[2025-08-15] VITALS (11 sets, daily range): BP systolic 126–149; BP diastolic 61–78; PULSE 60–80; RESP 15–16; TEMP 36.1–36.6; O2SAT 93–98; BMI 46.3
[2025-08-15] MEDS: Lactated Ringers 1,000 ML 15 ML IV (10:19)
[2025-08-15] MEDS: INDOCYANINE GREEN 3.75 MG in Syringe 1.5 ML 999 MG IV (10:20)
--- OUTSIDE RECORDS SUMMARY | 2025-08-15 10:35 | XMS RPT_ITS | CCD ---
Author Organization [facility] Care Team Providers Care Pharmacy Billing Adjudicator Name Role Phone Monroe, Desirae Unavailable Unavailable Monroe, Desirae Unavailable Unavailable Monroe, Desirae Unavailable Unavailable DeFinis, Harumi Y Unavailable Unavailable Monroe, Desirae Unavailable Unavailable Dr. Javan Wells Primary Care Provider Dr. Javan Wells Referring Provider Stu WEAVER, EMA Peacock Attending Provider Dr. Javan Wells Primary Care Provider Dr. Padma Enamorado Emergency Provider Dr. El James Admit Provider Dr. El James Attending Provider Dr. El James Other Provider Dr. Martín Butt Attending Provider Dr. Mo Foley Attending Provider Dr. Mo Foley Other Provider Dr. Javan Wells MD Primary Care Provider Dr. Javan Wells MD Referring Provider Levy Walton Attending Provider Dr. Javan Wells MD Primary Care Physician Levy Walton Attending Physician Levy Walton Referring Provider Dr. Martín Butt MD Attending Physician Javan Wells Referring Unavailable Levy Velasquez Attending Unavailable Javan Wells Primary Care Unavailable Priscilla, Javan Primary Care Unavailable Martín Butt Attending Unavailable Javan Wells Primary Care Unavailable Priscilla, Javan Attending Unavailable Javan Wells Referring Unavailable Priscilla, Javan Attending Unavailable Priscilla, Javan Primary Care Unavailable Levy Velasquez Attending Unavailable Levy Velasquez Referring Unavailable Javan Wells Primary Care Unavailable Priscilla, Javan Primary Care Unavailable Alicia Ward Attending Unavailable Allergies Allergy Classification Reported Allergen(s) Allergy Type Date of Onset Reaction(s) Facility (5 sources) penicillin drug allergy 03-11-2012 [facility] Work Phone: (7 sources) Penicillins Allergy to substance 01-02-2022 Unknown [facility] (1 source) Penicillins Drug allergy (disorder) 06-16-2025 [facility] Repository Medications Current Medications Medication Drug Class(es) Dates Sig (Normalized) Sig (Original) aspirin 81 mg chewable tablet (14 sources) Platelet Aggregation Inhibitor, Nonsteroidal Anti-inflammatory Drug Start: 06-08-2013 take 1 tablet by mouth once daily Start: 03-12-2012 take 1 tablet by tyrone th once daily ASPIRIN EC 81 MG TBEC One tablet by mouth daily ASPIRIN [id number] Javan Avelar MD glimepiride 4 mg oral tablet (9 sources) Sulfonylurea Start: 01-05-2021 take 1 tablet by mouth once daily at dinner lisinopril 10 mg oral tablet (20 sources) Angiotensin Converting Enzyme Inhibitor Start: 07-01-2022 take 2 tablets by mouth once daily Start: 07-01-2022 take 20 mg by mouth once daily Lisinopril Active 20 MG PO DAILY July 01, 2022 9:24am Start: 01-17-2022 End: 07-01-2022 take 1 tablet by mouth once daily Lisinopril 10 mg tablet Discontinued 10 mg PO DAILY January 17, 2022 10:55am July 01, 2022 9:24am Start: 01-02-2022 End: 01-17-2022 take 2 tablets by mouth once daily Lisinopril 5 mg tablet Discontinued 10 mg PO DAILY January 02, 2022 11:52am January 17, 2022 10:56am Start: 01-02-2022 End: 01-17-2022 take 10 mg by mouth once daily Lisinopril Discontinued 10 MG PO DAILY January 02, 2022 11:52am January 17, 2022 10:56am Start: 03-11-2012 End: 01-02-2022 take 1 tablet by mouth once daily Lisinopril 5 MG tablet Discontinued 5 mg PO DAILY June 08, 2013 12:00am January 02, 2022 12:05pm metFORMIN hydrochloride 1000 mg / SITagliptin 50 mg oral tablet (20 sources) Biguanide, Dipeptidyl Peptidase 4 Inhibitor Start: 07-02-2018 Start: 06-08-2013 End: 07-02-2018 Sitagliptin Phos-Metformin Discontinued 1 EACH PO TWICE A DAY June 08, 2013 12:00am July 02, 2018 10:10am Start: 04-03-2012 End: 07-02-2018 Sitagliptin Phos-Metformin 1 EACH tablet Discontinued 1 NMA PO TWICE A DAY June 08, 2013 12:00am July 02, 2018 10:10am Start: 04-03-2012 take 1 tablet by tyrone th twice daily JANUMET 50-500 MG TABS One tablet by mouth twice daily SITAGLIPTIN-METFORMIN HCL [id number] Javan Avelar MD Multivitamin With Folic Acid (7 sources) Start: 06-08-2013 take 1 tablet by mouth once daily Multivitamin With Folic Acid Active 1 TABLET PO DAILY June 08, 2013 10:54am Start: 06-08-2013 take 1 tablet by tyrone th once daily Multivitamin With Folic Acid Active 1 TABLET PO DAILY June 07, 2013 11:00pm Start: 06-08-2013 take 1 tablet by tyrone th once daily Multivitamin With Folic Acid Active 1 TABLET PO DAILY June 08, 2013 12:00am Multivitamin With Folic Acid 1 TABLET tablet (2 sources) Start: 06-08-2013 take 1 tablet by tyrone th once daily Start: 06-08-2013 take 1 tablet by tyrone th once daily Multivitamin With Folic Acid 1 TABLET tablet Active 1 {tbl} PO DAILY June 08, 2013 12:00am Semaglutide (2 sources) Start: 03-28-2025 Start: 03-28-2025 Semaglutide (O zempic) 0.25 mg or 0.5 mg (2 mg/3 mL) pen injector Active 0.25 mg SC EVERY WEEK March 28, 2025 12:00am for 4 weeks Completed/Discontinued Medications Medication Drug Class(es) Dates Sig (Normalized) Sig (Original) atorvastatin 40 mg oral tablet (20 sources) HMG-CoA Reductase Inhibitor Start: 10-13-2017 End: 03-14-2025 take 1 tablet by mouth once daily Atorvastatin 40 mg tablet Discontinued 40 mg PO daily 90 3 February 02, 2024 2:19pm March 14, 2025 11:31am Start: 06-08-2013 End: 06-08-2013 Atorvastatin Calcium Discont inued June 08, 2013 10:54am June 08, 2013 10:58am Start: 06-08-2013 End: 06-08-2013 Atorvastatin Calcium Discont inued June 07, 2013 11:00pm June 08, 2013 9:58am Start: 06-08-2013 End: 06-08-2013 Atorvastatin Calcium Discont inued June 08, 2013 12:00am June 08, 2013 10:58am Start: 09-24-2012 take 2 tablets by mo [facility] once daily LIPITOR 20 MG TABS Two tablets by mouth daily ATORVASTATIN CALCIUM [id number] Janneth Castro RN Start: 07-24-2012 take 1 tablet by tyrone th once daily LIPITOR 40 MG TABS One tablet by mouth daily ATORVASTATIN CALCIUM [id number] Javan Avelar MD Start: 03-23-2012 End: 10-13-2017 take 1 tablet by mouth at bedtime Atorvastatin 20 MG tablet Discontinued 20 mg PO AT BEDTIME June 08, 2013 12:00am October 13, 2017 5:57pm DULoxetine 20 mg delayed release oral capsule (14 sources) Serotonin and Norepinephrine Reuptake Inhibitor Start: 12-10-2017 End: 12-16-2017 take 1 capsule by mouth once daily Duloxetine 20 mg capsule,delayed release(DR/EC) Discontinued 20 mg PO daily December 10, 2017 12:00am December 16, 2017 3:01pm Start: 05-02-2014 take 1 tablet by tyrone th once daily CYMBALTA 20 MG CPEP One tablet by mouth daily DULOXETINE HCL [id number] Javan Avelar MD empagliflozin 25 mg oral tablet (20 sources) Sodium-Glucose Cotransporter 2 Inhibitor Start: 12-16-2017 End: 10-20-2024 take 1 tablet by mouth once daily Empagliflozin 25 mg tablet Discontinued 25 mg PO daily 90 October 17, 2023 1:06pm October 20, 2024 3:31pm Start: 12-10-2017 End: 12-16-2017 take 1 tablet by mouth once daily Empagliflozin 10 mg tablet Discontinued 10 mg PO daily December 10, 2017 12:00am December 16, 2017 3:02pm Start: 11-04-2014 take 1 tablet by tyrone th once daily JARDIANCE 10 MG TABS One tablet by mouth daily EMPAGLIFLOZIN [id number] Janneth Landin PA-C 24 hr isosorbide mononitrate 30 mg extended release oral tablet (20 sources) Nitrate Vasodilator Start: 08-21-2012 End: 11-10-2024 take 1 tablet by mouth once daily, then take 1 tablet by mouth every twenty-four hours Isosorbide Mononitrate 30 mg tablet extended release 24 hr Discontinued 30 mg PO DAILY 90 August 19, 2023 12:41pm November 10, 2024 5:06pm Start: 08-21-2012 take 1 tablet by tyrone th once daily IMDUR 30 MG [id number] One tablet by mouth daily ISOSORBIDE MONONITRATE [id number] Javan Avelar MD lansoprazole 30 mg disintegrating oral tablet (10 sources) Proton Pump Inhibitor Start: 04-03-2012 End: 04-07-2013 take 1 tablet by mouth twice daily PREVACID 30 MG CPDR One tablet by mouth twice daily LANSOPRAZOLE [id number] Javan Avelar MD Start: 04-03-2012 End: 04-07-2013 take 1 tablet by mouth twice daily PREVACID 30 MG CPDR One tablet by mouth twice daily LANSOPRAZOLE [id number] Javan Avelar MD metFORMIN hydrochloride 1000 mg oral tablet (10 sources) Biguanide Start: 03-11-2012 End: 04-03-2012 take 1 tablet by mouth twice daily METFORMIN HCL 1000 MG TABS One tablet by mouth twice daily METFORMIN HCL [id number] Javan Avelar MD methylPREDNISolone 4 mg oral tablet (9 sources) Corticosteroid Start: 06-09-2013 End: 12-16-2017 Methylprednisolone 4 MG tablets,dose pack Discontinued 4 mg PO DIRECTED 1 0 June 09, 2013 12:00am December 16, 2017 3:02pm metoprolol tartrate 25 mg oral tablet (20 sources) beta-Adrenergic [place] Start: 06-18-2012 End: 09-20-2024 take 1 tablet by mouth twice daily Metoprolol Tartrate 25 mg tablet Discontinued 25 mg PO TWICE A DAY 180 September 08, 2023 2:16pm September 20, 2024 12:26pm Start: 04-15-2012 End: 09-24-2012 take 1 tablet by mouth once daily in the evening METOPROLOL TARTRATE 50 MG TABS One tablet by mouth at 6 pm the day before CTA and one tablet at 9 am the morning of the CTA METOPROLOL TARTRATE [id number] Javan Avelar MD MULTIPLE VITAMIN (8 sources) Start: 11-04-2014 take 1 tablet by mouth once daily MULTIVITAMINS TABS One tablet by mouth daily MULTIPLE VITAMIN Janneth Landin PA-C Start: 03-12-2012 take 1 tablet by tyrone th once daily MULTIVITAMINS TABS One tablet by mouth daily MULTIPLE VITAMIN [id number] Javan Avelar MD MULTIPLE VITAMIN (2 sources) Start: 03-12-2012 take 1 tablet by mouth once daily MULTIVITAMINS TABS One tablet by mouth daily MULTIPLE VITAMIN [id number] Javan Avelar MD Multivitamin,Tx-Iron- Minerals (Therems-M) 1 TABLET tablet (9 sources) Start: 06-08-2013 End: 06-08-2013 Multivitamin,Ua-Bqgc-Hxcr rals (Therems-M) 1 TABLET tablet Discontinued June 08, 2013 10:54am June 08, 2013 10:58am Start: 06-08-2013 End: 06-08-2013 Multivitamin,Vi-Sgln-Gxaccpp s (Therems-M) 1 TABLET tablet Discontinued June 07, 2013 11:00pm June 08, 2013 9:58am Start: 06-08-2013 End: 06-08-2013 Multivitamin,Ts-Bhqs-Yyvtksy s (Therems-M) 1 TABLET tablet Discontinued June 08, 2013 12:00am June 08, 2013 10:58am raNITIdine 150 mg oral tablet (5 sources) Histamine-2 Receptor Antagonist Start: 03-11-2012 take 1 tablet by mouth twice daily RANITIDINE HCL 150 MG TABS One tablet by mouth twice daily RANITIDINE HCL [id number] Mary Stewart RN sertraline 100 mg oral tablet (20 sources) Serotonin Reuptake Inhibitor Start: 06-08-2013 End: 12-16-2017 take 1 tablet by mouth once daily Sertraline 100 MG tablet Discontinued 100 mg PO DAILY June 08, 2013 12:00am December 16, 2017 3:03pm Start: 04-07-2013 take 1 tablet by tyrone twice daily SERTRALINE HCL 50 MG TABS One tablet by mouth twice daily SERTRALINE HCL [id number] Javan Avelar MD valACYclovir 500 mg oral tablet (9 sources) Herpesvirus Nucleoside Analog DNA Polymerase Inhibitor, Herpes Simplex Virus Nucleoside Analog DNA Polymerase Inhibitor, Herpes Zoster Virus Nucleoside Analog DNA Polymerase Inhibitor Start: 06-09-2013 End: 12-16-2017 take 2 tablets by mouth three times daily Valacyclovir 500 MG tablet Discontinued 1000 mg PO THREE TIMES A DAY 7 0 June 09, 2013 12:00am December 16, 2017 3:03pm Start: 06-09-2013 End: 12-16-2017 take 1000 mg by mouth three times daily Valacyclovir Discontinued 1000 MG PO THREE TIMES A DAY 7 June 09, 2013 12:00am December 16, 2017 3:03pm Problems Active Problems Problem Classification Problem Date Documented Date Episodic/Chronic Abdominal pain (1 source) Unspecified abdominal pain; Translations: [Unspecified abdominal pain] Onset: 06-24-2025 Episodic Coronary atherosclerosis and other heart disease (20 sources) Coronary arteriosclerosis; Translations: [Atherosclerotic heart disease of [place] coronary artery without angina pectoris] Onset: 04-15-2012 04-15-2012 Chronic Diabetes mellitus with complications (1 source) Type 2 diabetes mellitus with other specified complication; Translations: [Type 2 diabetes mellitus with other specified complication] Onset: 09-28-2024 Chronic Diabetes mellitus without complication (16 sources) Diabetes mellitus; Translations: [Type 2 diabetes mellitus without complications] Onset: 03-11-2012 03-11-2012 Chronic Disorders of lipid metabolism (20 sources) Hyperlipidemia; Translations: [Pure hypercholesterolemia] Onset: 03-23-2012 03-23-2012 Chronic Essential hypertension (17 sources) Hypertensive disorder; Translations: [Essential hypertension] Onset: 03-12-2012 03-12-2012 Chronic Heart valve disorders (5 sources) Heart murmur; Translations: [Cardiac murmur, unspecified] Onset: 05-13-2025 03-28-2025 Episodic Other aftercare (9 sources) Long-term current use of drug therapy; Translations: [Other mcc (current) drug therapy] 12-16-2017 Episodic Other connective tissue disease (6 sources) Neurological symptom; Translations: [Unspecified symptoms and signs involving the nervous system] 04-28-2023 Episodic Other connective tissue disease (3 sources) Unspecified symptoms and signs involving the nervous system; Translations: [Other symptoms involving nervous and musculoskeletal systems] 04-28-2023 Episodic Other eye disorders (6 sources) Third cranial nerve weakness; Translations: [Third [oculomotor] nerve palsy, unspecified eye] 04-28-2023 Episodic Other eye disorders (3 sources) Third [oculomotor] nerve palsy, unspecified eye; Translations: [Third or oculomotor nerve palsy, partial] 04-28-2023 Episodic Other nutritional; endocrine; and metabolic disorders (20 sources) Body mass index (BMI) 45.0-49.9, adult; Translations: [Body mass index (BMI) 50-59.9 , adult] Onset: 04-07-2013 Resolved: 11-24-2015 11-04-2014 Chronic Peripheral and visceral atherosclerosis (5 sources) Intermittent claudication; Translations: [Peripheral vascular disease, unspecified] Onset: 05-02-2014 05-02-2014 Chronic Unclassified (6 sources) Long-term drug therapy; Translations: [Other mcc (current) drug therapy] Onset: 03-23-2012 Resolved: 05-31-2015 05-31-2015 Past or Other Problems Problem Classification Problem Date Documented Date Episodic/Chronic Biliary tract disease (20 sources) Biliary calculus; Translations: [Biliary colic] Onset: 03-16-2012 Resolved: 11-24-2015 04-06-2012 Episodic Gastritis and duodenitis (5 sources) Gastritis; Translations: [Gastritis, unspecified, without bleeding] Onset: 04-06-2012 04-06-2012 Episodic Nonspecific chest pain (10 sources) Chest discomfort; Translations: [Other chest pain] Onset: 03-12-2012 Resolved: 11-24-2015 03-12-2012 Episodic Other aftercare (9 sources) Long-term (current) use of other medications; Translations: [Other intermodal dispatcher (current) drug therapy] Onset: 03-23-2012 Resolved: 05-31-2015 03-23-2012 Episodic Other screening for suspected conditions (not mental disorders or infectious disease) (16 sources) Cardiovascular stress test abnormal; Translations: [Electrocardiogram abnormal] Onset: 03-11-2012 Resolved: 11-24-2015 03-11-2012 Episodic Other screening for suspected conditions (not mental disorders or infectious disease) (4 sources) Electrocardiogram abnormal; Translations: [Abnormal electrocardiogram [ECG] [EKG]] Onset: 03-12-2012 Resolved: 11-24-2015 03-12-2012 Episodic Residual codes; unclassified (9 sources) History of cardiac catheterization; Translations: [Other specified postprocedural states] Onset: 08-18-2011 06-20-2021 Episodic Results Test Name Value Interpretation Reference Range Facility Abdomen Limitedon 06-16-2025 Abdomen Limited [facility] [address] [place] [id number] Abdomen Limited MR#: [id number] Acct: [id number] Name: MARIYA ORTA Rep #: [id number] : 1950 M 74 From: Saji dorman MD PCP: Dr. Javan Wells MD Status: [facility] ER Study: Abdomen Limited Date of Exam: 06/16/25 Exam# [id number] Ordering Dr: Alicia Ward MD PROCEDURE: ABDOMEN LIMITED 06/16/2025 REASON FOR EXAM: GALLSTONE PANCREATITIS? TECHNIQUE: Procedure Code: USABDL Modality: US Procedure: ABDOMEN LIMITED COMPARISON: Prior CT scan done earlier in the day. FINDINGS: Liver: Diffusely echogenic suggesting fatty infiltration. Mild hepatomegaly. The liver measures 18.1 cm. Gallbladder: Sludge is seen within the gallbladder lumen. Mild degree of gallbladder wall thickening measuring 4.3 mm. Common bile duct: Normal measuring 5.6 mm. Pancreas: Obscured by bowel gas. Kidneys: The right kidney measures 12.9 cm 6 cm 6.6 cm.. US/Abdomen Limited IMPRESSION: Hepatomegaly and fatty infiltration of the liver. Sludge is seen within the gallbladder lumen. Mild degree of gallbladder wall thickening. The pancreas is obscured due to overlying bowel gas. Reading Location: [id number] CC: Dr. Alicia Ward MD; Dr. Javan Wells MD Heavy Threader: Signed Normal [facility] Abdomen/Pelvis without Conto n 06-16-2025 Abdomen/Pelvis without Cont [facility] [address] [place] [id number] Abdomen/Pelvis without Cont MR#: [id number] Acct: [id number] Name: MARIYA ORTA Rep #: [id number] : 1950 M 74 From: Saji dorman MD PCP: Dr. Javan Wells MD Status: [facility] ER Study: Abdomen/Pelvis without Cont Date of Exam: 05/20 Exam# [id number] Ordering Dr: Alicia Ward MD PROCEDURE: ABDOMEN/PELVIS WITHOUT CONT 06/16/2025 REASON FOR EXAM: ELEV LIVER ENZYMES Abdominal pains since Friday. TECHNIQUE: Procedure Code: CTABDPEL Modality: CT Procedure: ABDOMEN/PELVIS WITHOUT CONT Noncontrast technique limits evaluation of the abdominal and pelvic viscera. Coronal and Sagittal reconstruction series were provided. One or more dose reduction techniques were used (e.g., Automated exposure control, adjustment of the mA and/or kV according to patient size, use of iterative reconstruction technique). RADIATION DOSE SUMMARY: CTDlvol: 24.06 mGy DLP: 1304.28 mGycm COMPARISON: None FINDINGS: Lung bases: The lung bases are clear. Coronary artery calcification. Liver: Normal size. No obvious mass. Gallbladder: I suspect small gallstones and/or sludge within the gallbladder lumen. Spleen: Normal size. Pancreas: Mild enlarged pancreas with increased markings in the surrounding peritoneal fat suggestive of acute pancreatitis. No evidence of peripancreatic fluid or pseudocyst at this time. Adrenals: Unremarkable Kidneys: No urolithiasis. No hydronephrosis. Bladder: Unremarkable Mild degree of central prostatic calcifications. Bowel: Colonic diverticulosis without diverticulitis. Appendix: Unremarkable Lymph nodes: Unremarkable. Vasculature: Mild diffuse atherosclerotic calcifications are noted. Peritoneum / Retroperitoneum: Unremarkable Bones: Degenerative changes of the spine. CT/Abdomen/Pelvis without Cont IMPRESSION: Findings suggestive of small gallstones and sludge within the gallbladder lumen. Findings in keeping with the acute pancreatitis with a peripancreatic inflammatory changes without evidence of fluid or pseudocyst collection at this time. Sigmoid diverticulosis. Reading Location: [id number] CC: Dr. Alicia Ward MD; Dr. Javan Wells MD Heavy Threader: Signed Normal [facility] Basic Metabolic Profile (BMP )on 06-16-2025 BUN/CRE 21.8 RATIO High 10-20 [facility] Comment on above: Performed By: #### L 500.2500, L501.2450, L100.0100, L500.3400 #### [facility] [address] [place], [address] Calcium [Mass/Vol] 9.3 mg/dL Normal 7.6-11.0 [facility] Comment on above: Performed By: #### L 500.2500, L501.2450, L100.0100, L500.3400 #### [facility] [address] [place], [address] Chloride [Moles/Vol] 95 mmol/L Low 98-108 [facility] Comment on above: Performed By: #### L 500.2500, L501.2450, L100.0100, L500.3400 #### [facility] [address] [place], [address] CO2 [Moles/Vol] 22.9 mmol/L Normal 21.0-32.0 [facility] Comment on above: Performed By: #### L 500.2500, L501.2450, L100.0100, L500.3400 #### [facility] [address] [place], [address] Creatinine [Mass/Vol] 0.73 mg/dL Normal 0.70-1.20 [facility] Comment on above: Performed By: #### L 500.2500, L501.2450, L100.0100, L500.3400 #### [facility] [address] [place], [address] ECRCL 105.12 ml/min Normal 50-250 [facility] Comment on above: Performed By: #### L 500.2500, L501.2450, L100.0100, L500.3400 #### [facility] [address] [place], [address] GAP 13 Normal 5-15 [facility] Comment on above: Performed By: #### L 500.2500, L501.2450, L100.0100, L500.3400 #### [facility] [address] [place], [address] GFR/1.73 sq M.predicted among non-blacks MDRD (S/P/Bld) [Vol rate/Area] 96 mL/min/{1.73_m2} Normal >60 [facility] Comment on above: Result Comment: mL/m in/1.73m2 CKD-EPI Creatinine Equation (2020) Performed By: #### L 500.2500, L501.2450, L100.0100, L500.3400 #### [facility] [address] [place], [address] Glucose [Mass/Vol] 174 mg/dL High 70-99 [facility] Comment on above: Performed By: #### L 500.2500, L501.2450, L100.0100, L500.3400 #### [facility] [address] [place], [address] Potassium [Moles/Vol] 3.5 mmol/L Normal 3.3-5.1 [facility] Comment on above: Performed By: #### L 500.2500, L501.2450, L100.0100, L500.3400 #### [facility] [address] [place], [address] Sodium [Moles/Vol] 131 mmol/L Low 133-145 [facility] Comment on above: Performed By: #### L 500.2500, L501.2450, L100.0100, L500.3400 #### [facility] [address] [place], [address] Urea nitrogen [Mass/Vol] 16 mg/dL Normal 4-19 [facility] Comment on above: Performed By: #### L 500.2500, L501.2450, L100.0100, L500.3400 #### [facility] [address] [place], [address] CBC W/Diff, Automatedon 10-3 0-2025 Absolute Lymph 1.24 X10 3/uL Normal 0.83-4.51 [facility] Comment on above: Order Comment: REDRA W. PREVIOUS SPECIMEN REJECTED DUE TO QNS. 06/16/25 1252 Radha Negro. Performed By: #### L 100.0100 #### [facility] [address] [place], [address] Absolute Neut 7.5 X10 3/uL Normal 2.0-7.7 [facility] Comment on above: Order Comment: REDRA W. PREVIOUS SPECIMEN REJECTED DUE TO QNS. 06/16/25 1252 Radha Negro. Performed By: #### L 100.0100 #### [facility] [address] [place], [address] Basophils/100 WBC (Bld) 0.7 % Normal 0-1 [facility] Comment on above: Order Comment: REDRA W. PREVIOUS SPECIMEN REJECTED DUE TO QNS. 06/16/25 1252 Radha Negro. Performed By: #### L 100.0100 #### [facility] [address] [place], [address] Eosinophils/100 WBC (Bld) 2.3 % Normal 0-5 [facility] Comment on above: Order Comment: REDRA W. PREVIOUS SPECIMEN REJECTED DUE TO QNS. 06/16/25 1252 Radha Negro. Performed By: #### L 100.0100 #### [facility] [address] [place], [address] Erythrocyte distribution width (RBC) [Ratio] 13.3 % Normal 11.6-14.6 [facility] Comment on above: Order Comment: REDRA W. PREVIOUS SPECIMEN REJECTED DUE TO QNS. 06/16/25 1252 Radha Negro. Performed By: #### L 100.0100 #### [facility] [address] [place], [address] Hematocrit (Bld) [Volume fraction] 45.0 % Normal 40-54 [facility] Comment on above: Order Comment: REDRA W. PREVIOUS SPECIMEN REJECTED DUE TO QNS. 06/16/25 1252 Radha Negro. Performed By: #### L 100.0100 #### [facility] [address] [place], [address] Hemoglobin (Bld) [Mass/Vol] 15.9 g/dL Normal 13.0-16.5 [facility] Comment on above: Order Comment: REDRA W. PREVIOUS SPECIMEN REJECTED DUE TO QNS. 06/16/25 1252 Radha Negro. Performed By: #### L 100.0100 #### [facility] [address] [place], [address] IG% 0.900 Normal 0.0-0.9 [facility] Comment on above: Order Comment: REDRA W. PREVIOUS SPECIMEN REJECTED DUE TO QNS. 06/16/25 1252 Radha Negro. Result Comment: IG% - Immature Granulocytes (promyelocytes, myelocytes and metamyelocytes) > 1% indicates that a LEFT SHIFT is Present. Performed By: #### L 100.0100 #### [facility] [address] [place], [address] Lymphocytes/100 WBC (Bld) 12.3 % Low 19-41 [facility] Comment on above: Order Comment: REDRA W. PREVIOUS SPECIMEN REJECTED DUE TO QNS. 06/16/25 1252 Radha Negro. Performed By: #### L 100.0100 #### [facility] [address] [place], [address] MCH (RBC) [Entitic mass] 30.4 pg Normal 27.0-32.0 [facility] Comment on above: Order Comment: REDRA W. PREVIOUS SPECIMEN REJECTED DUE TO QNS. 06/16/25 1252 Radha Negro. Performed By: #### L 100.0100 #### [facility] [address] [place], [address] MCHC (RBC) [Mass/Vol] 35.3 g/dL Normal 32-36 [facility] Comment on above: Order Comment: REDRA W. PREVIOUS SPECIMEN REJECTED DUE TO QNS. 06/16/25 1252 Radha Negro. Performed By: #### L 100.0100 #### [facility] [address] [place], [address] MCV (RBC) [Entitic vol] 86.0 fL Normal 80-94 [facility] Comment on above: Order Comment: REDRA W. PREVIOUS SPECIMEN REJECTED DUE TO QNS. 06/16/25 1252 Radha Negro. Performed By: #### L 100.0100 #### [facility] [address] [place], [address] Monocytes/100 WBC (Bld) 9.8 % Normal 0-10 [facility] Comment on above: Order Comment: REDRA W. PREVIOUS SPECIMEN REJECTED DUE TO QNS. 06/16/25 1252 Radha Negro. Performed By: #### L 100.0100 #### [facility] [address] [place], [address] Neutrophils/100 WBC (Bld) 74.0 % High 47-70 [facility] Comment on above: Order Comment: REDRA W. PREVIOUS SPECIMEN REJECTED DUE TO QNS. 06/16/25 1252 Radha Negro. Performed By: #### L 100.0100 #### [facility] [address] [place], [address] Nucleated RBC (Bld) [#/Vol] 0 10*3/uL Normal 0-5 [facility] Comment on above: Order Comment: REDRA W. PREVIOUS SPECIMEN REJECTED DUE TO QNS. 06/16/25 1252 Radha Negro. Performed By: #### L 100.0100 #### [facility] [address] [place], [address] Platelet mean volume (Bld) [Entitic vol] 10.4 fL Normal 6.2-12.0 [facility] Comment on above: Order Comment: REDRA W. PREVIOUS SPECIMEN REJECTED DUE TO QNS. 06/16/25 1252 Radha Negro. Performed By: #### L 100.0100 #### [facility] [address] [place], [address] Platelets (Bld) [#/Vol] 203 10*3/uL Normal 150-450 [facility] Comment on above: Order Comment: REDRA W. PREVIOUS SPECIMEN REJECTED DUE TO QNS. 06/16/25 1252 Radha Negro. Performed By: #### L 100.0100 #### [facility] [address] [place], [address] RBC (Bld) [#/Vol] 5.23 10*6/uL Normal 4.6-6.2 [facility] Comment on above: Order Comment: REDRA W. PREVIOUS SPECIMEN REJECTED DUE TO QNS. 06/16/25 1252 Radha Negro. Performed By: #### L 100.0100 #### [facility] [address] [place], [address] RDW SD 41.7 fl Normal 35.1-43.9 [facility] Comment on above: Order Comment: REDRA W. PREVIOUS SPECIMEN REJECTED DUE TO QNS. 06/16/25 1252 Radha Negro. Performed By: #### L 100.0100 #### [facility] [address] [place], [address] WBC (Bld) [#/Vol] 10.1 10*3/uL Normal 4.4-11.0 [facility] Comment on above: Order Comment: REDRA W. PREVIOUS SPECIMEN REJECTED DUE TO QNS. 06/16/25 1252 Radha Negro. Performed By: #### L 100.0100 #### [facility] [address] [place], [address] Absolute Neut Normal 2.0-7.7 [facility] Comment on above: Result Comment: This specimen has been REJECTED due to Laboratory criteria: Quanity Not Sufficient. CRISTIANO has been notified of need of recollection. 06/16/25 125 Radha Negro Performed By: #### L 500.2500, L501.2450, L100.0100, L500.3400 #### [facility] [address] [place], [address] HCT Normal 40-54 [facility] Comment on above: Result Comment: This specimen has been REJECTED due to Laboratory criteria: Quanity Not Sufficient. CRISTIANO has been notified of need of recollection. 06/16/25 125 Radha Negro Performed By: #### L 500.2500, L501.2450, L100.0100, L500.3400 #### [facility] [address] [place], [address] HGB Normal 13.0-16.5 [facility] Comment on above: Result Comment: This specimen has been REJECTED due to Laboratory criteria: Quanity Not Sufficient. CRISTIANO has been notified of need of recollection. 06/16/251251 Radha Negro Performed By: #### L 500.2500, L501.2450, L100.0100, L500.3400 #### [facility] [address] [place], [address] MCH Normal 27.0-32.0 [facility] Comment on above: Result Comment: This specimen has been REJECTED due to Laboratory criteria: Quanity Not Sufficient. CRISTIANO has been notified of need of recollection. 06/16/251251 Radha Negro Performed By: #### L 500.2500, L501.2450, L100.0100, L500.3400 #### [facility] [address] [place], [address] MCHC Normal 32-36 [facility] Comment on above: Result Comment: This specimen has been REJECTED due to Laboratory criteria: Quanity Not Sufficient. CRISTIANO has been notified of need of recollection. 06/16/251251 Radha Negro Performed By: #### L 500.2500, L501.2450, L100.0100, L500.3400 #### [facility] [address] [place], [address] MCV Normal 80-94 [facility] Comment on above: Result Comment: This specimen has been REJECTED due to Laboratory criteria: Quanity Not Sufficient. CRISTIANO has been notified of need of recollection. 06/16/251251 Radha Negro Performed By: #### L 500.2500, L501.2450, L100.0100, L500.3400 #### [facility] [address] [place], [address] NEUT% Normal 47-70 [facility] Comment on above: Result Comment: This specimen has been REJECTED due to Laboratory criteria: Quanity Not Sufficient. CRISTIANO has been notified of need of recollection. 06/16/251251 Radha Negro Performed By: #### L 500.2500, L501.2450, L100.0100, L500.3400 #### [facility] [address] [place], [address] PLT Normal 150-450 [facility] Comment on above: Result Comment: This specimen has been REJECTED due to Laboratory criteria: Quanity Not Sufficient. CRISTIANO has been notified of need of recollection. 06/16/25 1252 Radha Negro Performed By: #### L 500.2500, L501.2450, L100.0100, L500.3400 #### [facility] [address] [place], [address] RBC Normal 4.6-6.2 [facility] Comment on above: Result Comment: This specimen has been REJECTED due to Laboratory criteria: Quanity Not Sufficient. CRISTIANO has been notified of need of recollection. 06/16/25 125 Rdaha Negro Performed By: #### L 500.2500, L501.2450, L100.0100, L500.3400 #### [facility] [address] [place], [address] RDW CV Normal 11.6-14.6 [facility] Comment on above: Result Comment: This specimen has been REJECTED due to Laboratory criteria: Quanity Not Sufficient. CRISTIANO has been notified of need of recollection. 06/16/25 125 Radha Negro Performed By: #### L 500.2500, L501.2450, L100.0100, L500.3400 #### [facility] [address] [place], [address] RDW SD Normal 35.1-43.9 [facility] Comment on above: Result Comment: This specimen has been REJECTED due to Laboratory criteria: Quanity Not Sufficient. CRISTIANO has been notified of need of recollection. 06/16/25 1252 Radha Negro Performed By: #### L 500.2500, L501.2450, L100.0100, L500.3400 #### [facility] [address] [place], [address] WBC Normal 4.4-11.0 [facility] Comment on above: Result Comment: This specimen has been REJECTED due to Laboratory criteria: Quanity Not Sufficient. CRISTIANO has been notified of need of recollection. 06/16/25 1252 Radha Negro Performed By: #### L 500.2500, L501.2450, L100.0100, L500.3400 #### [facility] [address] [place], [address] Emergency Department Summary on 06-16-2025 Emergency Department Summary [facility] Medical Records Department [address] [facility] [place] [address] Emergency Department Summary 06/16/25 MR#: [id number] Acct: [id number] Name: MARIYA ORTA Rep #: [id number] : 1950 74 From: Alicia Ward MD PCP: Dr. Javan Wells MD Status:DEP ER Location: ED HPI HPI - GI History of Present Illness Chief Complaint: Abd Pain Narrative Narrative: Patient is a 74-year-old male presenting to the emergency department for a CT of his abdomen. He was seen by his PCP Dr. Wells yesterday and had blood work done that showed elevated lipase, alk phos and total bilirubin. Therefore a CT of his abdomen was ordered however he was called and told that his insurance would not cover an outpatient CT. patient states that starting on Friday he had right sided abdominal discomfort. States his last bowel movement was on Friday but he is still passing gas. He endorses nausea with 2 episodes of nonbilious, nonbloody vomiting on Friday. States since then he has not been able to eat or drink as much without feeling very full. He denies fever, chills, chest pain, shortness of breath, dysuria, hematuria, diarrhea. Denies any history of abdominal surgeries. Prior similar symptoms: No PFSH PFSH Medical History Non-smoker Hypertension Pure hypercholesterolemia Atherosclerotic heart disease of [place] coronary artery without angina pectoris Intermittent claudication Diabetes mellitus CAD (coronary artery disease) Other [facility] (current) drug therapy Arteriosclerotic coronary artery disease Essential (primary) hypertension Hyperlipidemia Home Medications ???Medication ???Instructions ???Recorded ???Last Taken ???Type aspirin 81 mg chewable tablet 81 mg PO DAILY@0800 06/08/1306/12 History multivitamin with folic acid 400 1 tab PO DAILY supplement 06/08/13 06/12/25 History mcg tablet sitagliptin phosphate 50 1 tab PO BID blood sugar 07/02/18 06/12/25 History mg-metformin 1,000 mg tablet () glimepiride 4 mg tablet 4 mg PO .daily @ dinner blood suga r 01/05/21 06/12/25 History metoprolol tartrate 25 mg tablet 25 mg PO BID blood pressure #180 0 09/20/24 06/12/25 Rx tabs empagliflozin 25 mg tablet 25 mg PO QDAY blood sugar #90 tabs 10/20/24 06/12/25 Rx isosorbide mononitrate 30 mg 30 mg PO DAILY heart #90 tabs 10/1706/12/25 Rx tablet,extended release 24 hr semaglutide 0.25 mg or 0.5 mg (2 0.25 mg subcut QWEEK blood sugar 0 03/28/25 06/15/25 History mg/3 mL) subcutaneous pen injector (Ozempic) atorvastatin 40 mg tablet 40 mg PO QHS cholesterol 06/16/25 06/11/25 History lisinopril 20 mg tablet 20 mg PO DAILY heart 06/16/2505/19 History Allergy/AdvReac Type Severity Reaction Status Date / Time Penicillins Allergy Unknown Verified 06/16/25 12:07 Family History Mother CAD (coronary artery disease) cabg Diabetes Brother pacemaker Father Diabetes Surgical History History of cardiac cath ( 03/2012) Social History Smoking Status: Never smoker alcohol intake: never substance use type: does not use caffeine: Yes Type: coffee Number of servings: 12 what type of physical activity do you participate in: none seatbelt use: never do you feel safe at home: Yes ROS ROS ED ROS Narrative see HPI EXAM Physical Exam Narrative Exam Narrative: Vital signs: Reviewed General: Alert and oriented x 3. No acute distress HEENT: Head is normocephalic and atraumatic, sinuses nontender, pupils equal round and reactive. No scleral icterus. Nares are patent. Oropharynx and throat exams normal. Neck: Supple without lymphadenopathy nontender Cardiovascular: Regular rate and rhythm, no murmurs. No rubs or gallops. Normal S1 and S2 Respiratory: Clear to auscultation bilaterally. No wheezes, rales, rhonchi Abdominal: Soft and protuberant. Nontender. Normal bowel sounds. No guarding or rebound. Nonsurgical abdomen Extremities: No tenderness. No bruising. Normal range of motion. Normal sensation. Skin: No rash or redness. No jaundice. Neurological: Cranial nerves II through XII are grossly intact. Normal strength and sensation. Normal cerebellar function The rest of the physical exam is unremarkable Const Vital Signs: 06/16/25 12:05 06/16/25 14:09 Temperature 97.8 F Temperature Source Oral Pulse Rate 104 H 71 Respiratory Rate 18 16 Blood Pressure 118/81 H 148/81 H Blood Pressure Mean 93 103 Pulse Ox 98 98 Oxygen Delivery Method Room Air Room Air MDM MDM MDM Narrative Medical decision making narrative: Patient is a 74-year-old male prese (more content not included)... Normal [facility] Lipaseon 06-16-2025 Lipase [Catalytic activity/Vol] 66 U/L Normal 13-75 [facility] Comment on above: Result Comment: Rodney browning note: LIPASE revised reference range effective 22. New Lipase methodology. Expected to produce lower values than the previous assay method. NEW Reference Range: 13 - 75 U/L Performed By: #### L 500.2500, L501.2450, L100.0100, L500.3400 #### [facility] [address] [place], [address] Liver Profileon 06-16-2025 Albumin [Mass/Vol] 3.6 g/dL Normal 3.4-4.8 [facility] Comment on above: Performed By: #### L 500.2500, L501.2450, L100.0100, L500.3400 #### [facility] [address] [place], [address] ALK PHOS 102 U/L Normal 40-129 [facility] Comment on above: Performed By: #### L 500.2500, L501.2450, L100.0100, L500.3400 #### [facility] [address] [place], [address] ALT [Catalytic activity/Vol] 39 U/L Normal <=46 [facility] Comment on above: Performed By: #### L 500.2500, L501.2450, L100.0100, L500.3400 #### [facility] [address] [place], [address] AST [Catalytic activity/Vol] 33 U/L Normal <=37 [facility] Comment on above: Performed By: #### L 500.2500, L501.2450, L100.0100, L500.3400 #### [facility] [address] [place], [address] Bilirubin [Mass/Vol] 1.31 mg/dL High 0.00-1.30 [facility] Comment on above: Performed By: #### L 500.2500, L501.2450, L100.0100, L500.3400 #### [facility] [address] [place], [address] Bilirubin.direct [Mass/Vol] 0.51 mg/dL High 0.00-0.30 [facility] Comment on above: Performed By: #### L 500.2500, L501.2450, L100.0100, L500.3400 #### [facility] [address] [place], [address] Globulin (S) [Mass/Vol] 4.1 g/dL Normal 2.2-4.2 [facility] Comment on above: Performed By: #### L 500.2500, L501.2450, L100.0100, L500.3400 #### [facility] [address] [place], [address] T PROT 7.6 g/dL Normal 5.9-8.4 [facility] Comment on above: Performed By: #### L 500.2500, L501.2450, L100.0100, L500.3400 #### [facility] [address] [place], [address] CBC W/Diff, Automatedon 10-2 Absolute Lymph 1.37 X10 3/uL Normal 0.83-4.51 [facility] Comment on above: Performed By: #### L 100.0100, L501.2450, L500.4050 ####[facility] [address] [place], [address] Absolute Neut 10.4 X10 3/uL High 2.0-7.7 [facility] Comment on above: Performed By: #### L 100.0100, L501.2450, L500.4050 ####[facility] [address] [place], [address] Basophils/100 WBC (Bld) 0.4 % Normal 0-1 [facility] Comment on above: Performed By: #### L 100.0100, L501.2450, L500.4050 ####[facility] [address] [place], [address] Eosinophils/100 WBC (Bld) 1.8 % Normal 0-5 [facility] Comment on above: Performed By: #### L 100.0100, L501.2450, L500.4050 ####[facility] [address] [place], [address] Erythrocyte distribution width (RBC) [Ratio] 13.4 % Normal 11.6-14.6 [facility] Comment on above: Performed By: #### L 100.0100, L501.2450, L500.4050 ####[facility] [address] [place], [address] Hematocrit (Bld) [Volume fraction] 49.9 % Normal 40-54 [facility] Comment on above: Performed By: #### L 100.0100, L501.2450, L500.4050 ####[facility] [address] [place], [address] Hemoglobin (Bld) [Mass/Vol] 17.1 g/dL High 13.0-16.5 [facility] Comment on above: Performed By: #### L 100.0100, L501.2450, L500.4050 ####[facility] [address] [place], [address] IG% 0.700 Normal 0.0-0.9 [facility] Comment on above: Result Comment: IG% - Immature Granulocytes (promyelocytes, myelocytes and metamyelocytes) > 1% indicates that a LEFT SHIFT is Present. Performed By: #### L 100.0100, L501.2450, L500.4050 ####[facility] [address] [place], [address] Lymphocytes/100 WBC (Bld) 10.5 % Low 19-41 [facility] Comment on above: Performed By: #### L 100.0100, L501.2450, L500.4050 ####[facility] [address] [place], [address] MCH (RBC) [Entitic mass] 30.1 pg Normal 27.0-32.0 [facility] Comment on above: Performed By: #### L 100.0100, L501.2450, L500.4050 ####[facility] [address] [place], [address] MCHC (RBC) [Mass/Vol] 34.3 g/dL Normal 32-36 [facility] Comment on above: Performed By: #### L 100.0100, L501.2450, L500.4050 ####[facility] [address] [place], [address] MCV (RBC) [Entitic vol] 87.7 fL Normal 80-94 [facility] Comment on above: Performed By: #### L 100.0100, L501.2450, L500.4050 ####[facility] [address] [place], [address] Monocytes/100 WBC (Bld) 7.2 % Normal 0-10 [facility] Comment on above: Performed By: #### L 100.0100, L501.2450, L500.4050 ####[facility] [address] [place], [address] Neutrophils/100 WBC (Bld) 79.4 % High 47-70 [facility] Comment on above: Performed By: #### L 100.0100, L501.2450, L500.4050 ####[facility] [address] [place], [address] Nucleated RBC (Bld) [#/Vol] 0 10*3/uL Normal 0-5 [facility] Comment on above: Performed By: #### L 100.0100, L501.2450, L500.4050 ####[facility] [address] [place], [address] Platelet mean volume (Bld) [Entitic vol] 10.9 fL Normal 6.2-12.0 [facility] Comment on above: Performed By: #### L 100.0100, L501.2450, L500.4050 ####[facility] [address] [place], [address] Platelets (Bld) [#/Vol] 205 10*3/uL Normal 150-450 [facility] Comment on above: Performed By: #### L 100.0100, L501.2450, L500.4050 ####[facility] [address] [place], [address] RBC (Bld) [#/Vol] 5.69 10*6/uL Normal 4.6-6.2 [facility] Comment on above: Performed By: #### L 100.0100, L501.2450, L500.4050 ####[facility] [address] [place], [address] RDW SD 43.3 fl Normal 35.1-43.9 [facility] Comment on above: Performed By: #### L 100.0100, L501.2450, L500.4050 ####[facility] [address] [place], [address] WBC (Bld) [#/Vol] 13.1 10*3/uL High 4.4-11.0 [facility] Comment on above: Performed By: #### L 100.0100, L501.2450, L500.4050 ####[facility] [address] [place], [address] Comprehensive Metabolic Prof [facility] 06-15-2025 Albumin [Mass/Vol] 3.9 g/dL Normal 3.4-4.8 [facility] Comment on above: Performed By: #### L 100.0100, L501.2450, L500.4050 ####[facility] [address] [place], [address] Albumin/Globulin [Mass ratio] 0.9 {ratio} Normal 0.9-2.4 [facility] Comment on above: Performed By: #### L 100.0100, L501.2450, L500.4050 ####[facility] [address] [place], [address] ALK PHOS 195 U/L High 40-129 [facility] Comment on above: Performed By: #### L 100.0100, L501.2450, L500.4050 ####[facility] [address] [place], [address] ALT [Catalytic activity/Vol] 39 U/L Normal <=46 [facility] Comment on above: Performed By: #### L 100.0100, L501.2450, L500.4050 ####[facility] [address] [place], [address] AST [Catalytic activity/Vol] 28 U/L Normal <=37 [facility] Comment on above: Performed By: #### L 100.0100, L501.2450, L500.4050 ####[facility] [address] [place], [address] Bilirubin [Mass/Vol] 1.67 mg/dL High 0.00-1.30 [facility] Comment on above: Performed By: #### L 100.0100, L501.2450, L500.4050 ####[facility] [address] [place], [address] BUN/CRE 21.2 RATIO High 10-20 [facility] Comment on above: Performed By: #### L 100.0100, L501.2450, L500.4050 ####[facility] [address] [place], [address] Calcium [Mass/Vol] 9.8 mg/dL Normal 7.6-11.0 [facility] Comment on above: Performed By: #### L 100.0100, L501.2450, L500.4050 ####[facility] [address] [place], [address] Chloride [Moles/Vol] 95 mmol/L Low 98-108 [facility] Comment on above: Performed By: #### L 100.0100, L501.2450, L500.4050 ####[facility] [address] [place], [address] CO2 [Moles/Vol] 21.1 mmol/L Normal 21.0-32.0 [facility] Comment on above: Performed By: #### L 100.0100, L501.2450, L500.4050 ####[facility] [address] [place], [address] Creatinine [Mass/Vol] 0.72 mg/dL Normal 0.70-1.20 [facility] Comment on above: Performed By: #### L 100.0100, L501.2450, L500.4050 ####[facility] [address] [place], [address] GAP 16 High 5-15 [facility] Comment on above: Performed By: #### L 100.0100, L501.2450, L500.4050 ####[facility] [address] [place], [address] GFR/1.73 sq M.predicted among non-blacks MDRD (S/P/Bld) [Vol rate/Area] 97 mL/min/{1.73_m2} Normal >60 [facility] Comment on above: Result Comment: mL/m in/1.73m2 CKD-EPI Creatinine Equation (2020) Performed By: #### L 100.0100, L501.2450, L500.4050 ####[facility] [address] [place], [address] Globulin (S) [Mass/Vol] 4.2 g/dL Normal 2.2-4.2 [facility] Comment on above: Performed By: #### L 100.0100, L501.2450, L500.4050 ####[facility] [address] [place], [address] Glucose [Mass/Vol] 228 mg/dL High 70-99 [facility] Comment on above: Performed By: #### L 100.0100, L501.2450, L500.4050 ####[facility] [address] [place], [address] Potassium [Moles/Vol] 4.0 mmol/L Normal 3.3-5.1 [facility] Comment on above: Performed By: #### L 100.0100, L501.2450, L500.4050 ####[facility] [address] [place], [address] Sodium [Moles/Vol] 132 mmol/L Low 133-145 [facility] Comment on above: Performed By: #### L 100.0100, L501.2450, L500.4050 ####[facility] [address] [place], [address] T PROT 8.1 g/dL Normal 5.9-8.4 [facility] Comment on above: Performed By: #### L 100.0100, L501.2450, L500.4050 ####[facility] [address] [place], [address] Urea nitrogen [Mass/Vol] 15 mg/dL Normal 4-19 [facility] Comment on above: Performed By: #### L 100.0100, L501.2450, L500.4050 ####[facility] [address] [place], [address] Lipaseon 06-15-2025 Lipase [Catalytic activity/Vol] 149 U/L High 13-75 [facility] Comment on above: Result Comment: Rodney browning note: LIPASE revised reference range effective 22. New Lipase methodology. Expected to produce lower values than the previous assay method. NEW Reference Range: 13 - 75 U/L Performed By: #### L 100.0100, L501.2450, L500.4050 ####[facility] [address] [place], [address] Echocardiogram study reportO rdered By: Martín Butt on 05-04-2025 Study report [facility] [address] [place] [address] Echo Complete W/ Contrast 05/02/25 0958 MR#: [id number] Acct: [id number] Name: MARIYA ORTA Rep #:[id number] : 1950 74 From: Martín Parham Attending Dr: GAMALIEL Mccoy atus: REG CLI Ordering Dr: Levy Velasquez Date: 05/02/25 Location: [facility] Sex: M C Admitted: Reason For Study : Murmur Procedure This was a 2D Doppler, Color Flow transthoracic echocardiogram. The study was technically difficult. Exam performed in department. Left Ventricle Normal LV size. The left ventricular ejection fraction is 50 %. Stage 1 diastolic dysfunction. No regional wall motion abnormalities noted. Right Ventricle Normal RV size. Normal systolic function. Atria Normal left atrium. Normal right atrium. Mitral Valve There is mild mitral annular calcification. Tricuspid Valve Normal tricuspid valve. Mild (1+) tricuspid valve insufficiency. Pulmonary artery systolic pressure is 28 mmHg. Aortic Valve Trisinus/trileaflet aortic valve. Mild focal aortic valve thickening. Mild aortic stenosis. Pulmonic Valve Normal pulmonic valve. Great Vessels Normal aortic root. Mildly calcified aortic root. The pulmonary artery is normalsize. Inferior vena cava collapse with respiration. Pericardium/Pleural No pericardial effusion. Medication 22 gauge I.V. with prn adaptor inserted into right arm. Diluted definity 1.5ml given slow IV push to enhance endocardial definition. MMode/2D Measurements & Calculations LVIDd: 5.0 cm IVSd: 0.96 cm LVOT diam: 2.0 cm LVIDs: 3.8 cm LVPWd: 0.85 cm RVDd: 4.2 cm FS: 23.8 % LVOT area: 3.2 cm2 Ao root diam: 3.4 cm LAV(MOD-bp): 55.0 ml LVAd ap4: 37.1 cm2 LAV(MOD-bp) Indexed: 23.2 ml/m2 LVLd ap4: 8.6 cm LAV(MOD-sp2): 53.7 ml EDV(MOD-sp4): 129.1 ml LAV(MOD-sp4): 52.5 ml EDV(sp4-el): 136.4 ml LVAs ap4: 24.8 cm2 LVLs ap4: 7.8 cm ESV(MOD-sp4): 66.6 ml ESV(sp4-el): 67.3 ml EF(MOD-sp4): 48.4 % EF(sp4-el): 50.6 % SV(MOD-sp4): 62.5 ml SV(sp4-el): 69.1 ml Ao sinus diam: 3.2 cm SI(MOD-sp4): 26.4 ml/m2 Ao ST Junction: 2.3 cm LA A4 area: 19.0 cm2 LA dimension(2D): 4.6 cm RA A4 area: 15.4 cm2 Time Measurements MV dec time: 0.26 sec Doppler Measurements & Calculations MV E max kevon: 95.5 cm/sec Lat Peak E' Kevon: 11.9 cm/sec Med Peak E' Kevon: 7.6 cm/sec MV A max kevon: 111.6 cm/sec E/E' lat: 8.0 E/E' med: 12.7 MV E/A: 0.86 MV V2 max: 124.7 cm/sec MV P1/2t max kevon: 109.7 cm/sec Ao V2 max: 164.8 cm/sec MV max P.2 mmHg MV P1/2t: 86.2 msec Ao max P.9 mmHg MV V2 mean: 69.0 cm/sec MV dec slope: 372.6 cm/sec2 Ao V2 mean: 105.0 cm/sec MV mean P.3 mmHg Ao mean P.2 mmHg MV V2 VTI: 36.6 cm MVA(P1/2t): 2.6 cm2 Ao V2 VTI: 36.5 cm MVA(VTI): 2.1 cm2 AV (velocity ratio): 0.64 GRABIEL(I,D): 2.1 cm2 GRABIEL(V,D): 2.0 cm2 LV V1 max: 101.9 cm/sec SV(LVOT): 75.0 ml PA V2 max: 109.6 cm/sec LV V1 max P.2 mmHg PA V2 mean: 77.0 cm/sec LV V1 mean P.2 mmHg LV V1 mean: 68.9 cm/sec LV V1 VTI: 23.3 cm TR max kevon: 243.1 cm/sec TR max P.0 mmHg ECHO/Echo Complete W/ Contrast Interpretation Summary Normal LV size. The left ventricular ejection fraction is 50 %. Stage 1 diastolic dysfunction. Pulmonary artery systolic pressure is 28 mmHg. Mild aortic stenosis. Mild focal aortic valve thickening. Contrast injection was performed. Ordering Physician: Levy Velasquez Referring Physician: Levy Velasquez Performed By: Janes Maya RCS 05/04/25 3535 Date _ Martín Butt MD CC: Dr. Javan Wells MD; GAMALIEL Mccoy ~ Date Dictated: 05/02/25957 Date Transcribed: 05/04/25704 Heavy Threader: Signed [facility] Work Phone: Echo Complete W/ Contraston 05-02-2025 Echo Complete W/ Contrast [facility] [address] [place] [address] Echo Complete W/ Contrast 05/02/25957 MR#: [id number] Acct: [id number] Name: MARIYA ORTA Rep #: [id number] : 1950 74 From: Martín Butt MD Attending Dr: GAMALIEL Mccoy Status: REG CL I Ordering Dr: Levy Velasquez Date: 05/02/25 Location: CVS Sex: M C Admitted: Reason For Study : Murmur Procedure This was a 2D Doppler, Color Flow transthoracic echocardiogram. The study was technically difficult. Exam performed in department. Left Ventricle Normal LV size. The left ventricular ejection fraction is 50 %. Stage 1 diastolic dysfunction. No regional wall motion abnormalities noted. Right Ventricle Normal RV size. Normal systolic function. Atria Normal left atrium. Normal right atrium. Mitral Valve There is mild mitral annular calcification. Tricuspid Valve Normal tricuspid valve. Mild (1+) tricuspid valve insufficiency. Pulmonary artery systolic pressure is 28 mmHg. Aortic Valve Trisinus/trileaflet aortic valve. Mild focal aortic valve thickening. Mild aortic stenosis. Pulmonic Valve Normal pulmonic valve. Great Vessels Normal aortic root. Mildly calcified aortic root. The pulmonary artery is normal size. Inferior vena cava collapse with respiration. Pericardium/Pleural No pericardial effusion. Medication 22 gauge I.V. with prn adaptor inserted into right arm. Diluted definity 1.5ml given slow IV push to enhance endocardial definition. MMode/2D Measurements Calculations LVIDd: 5.0 cm IVSd: 0.96 cm LVOT diam: 2.0 cm LVIDs: 3.8 cm LVPWd: 0.85 cm RVDd: 4.2 cm FS: 23.8 % LVOT area: 3.2 cm2 Ao root diam: 3.4 cm LAV(MOD-bp): 55.0 ml LVAd ap4: 37.1 cm2 LAV(MOD-bp) Indexed: 23.2 ml/m2 LVLd ap4: 8.6 cm LAV(MOD-sp2): 53.7 ml EDV(MOD-sp4): 129.1 ml LAV(MOD-sp4): 52.5 ml EDV(sp4-el): 136.4 ml LVAs ap4: 24.8 cm2 LVLs ap4: 7.8 cm ESV(MOD-sp4): 66.6 ml ESV(sp4-el): 67.3 ml EF(MOD-sp4): 48.4 % EF(sp4-el): 50.6 % SV(MOD-sp4): 62.5 ml SV(sp4-el): 69.1 ml Ao sinus diam: 3.2 cm SI(MOD-sp4): 26.4 ml/m2 Ao ST Junction: 2.3 cm LA A4 area: 19.0 cm2 LA dimension(2D): 4.6 cm RA A4 area: 15.4 cm2 Time Measurements MV dec time: 0.26 sec Doppler Measurements Calculations MV E max kevon: 95.5 cm/sec Lat Peak E' Kevon: 11.9 cm/sec Med Peak E' Kevon: 7.6 cm/sec MV A max kevon: 111.6 cm/sec E/E' lat: 8.0 E/E' med: 12.7 MV E/A: 0.86 MV V2 max: 124.7 cm/sec MV P1/2t max kevon: 109.7 cm/sec Ao V2 max: 164.8 cm/sec MV max P.2 mmHg MV P1/2t: 86.2 msec Ao max P.9 mmHg MV V2 mean: 69.0 cm/sec MV dec slope: 372.6 cm/sec2 Ao V2 mean: 105.0 cm/sec MV mean P.3 mmHg Ao mean P.2 mmHg MV V2 VTI: 36.6 cm MVA(P1/2t): 2.6 cm2 Ao V2 VTI: 36.5 cm MVA(VTI): 2.1 cm2 AV (velocity ratio): 0.64 GRABIEL(I,D): 2.1 cm2 GRABIEL(V,D): 2.0 cm2 LV V1 max: 101.9 cm/sec SV(LVOT): 75.0 ml PA V2 max: 109.6 cm/sec LV V1 max P.2 mmHg PA V2 mean: 77.0 cm/sec LV V1 mean P.2 mmHg LV V1 mean: 68.9 cm/sec LV V1 VTI: 23.3 cm TR max kevon: 243.1 cm/sec TR max P.0 mmHg ECHO/Echo Complete W/ Contrast Interpretation Summary Normal LV size. The left ventricular ejection fraction is 50 %. Stage 1 diastolic dysfunction. Pulmonary artery systolic pressure is 28 mmHg. Mild aortic stenosis. Mild focal aortic valve thickening. Contrast injection was performed. Ordering Physician: Levy Velasquez Referring Physician: Levy Velasquez Performed By: Janes Maya RCS 05/04/25 9155 Date Martín Butt MD CC: Dr. Javan Wells MD; GAMALIEL Mccoy Date Dictated: 05/02/25957 Date Transcribed: 05/04/25704 Heavy Threader: Signed Normal [facility] Cardiology Visit Reporton Cardiology Visit Report [facility] [address] [place] [address] OFFICE VISIT Date of Service: 03/28/25 MR#: [id number] Acct: [id number] Name: MARIYA ORTA Rep #: [id number] : 1950 Provider: GAMALIEL Mccoy Age/Sex: 74/M [place] [facility] [place] Status: Signed Agree with assessment and plan as outlined. HPI HPI History of Present Illness Details: Mariya Orta is a 74-year-old male who presents to office today for follow-up for monitoring his cardiovascular health. He has a history of CAD, hyperlipidemia and hypertension along with diabetes mellitus and obesity. Upon presentation today, patient reports doing well. He was sick last week with a cold and is recovering from that. He denies any anginal or anginal equivalent symptoms. Further ROS below. 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 Is patient in pain?: No Allergies Penicillins Allergy (Verified 03/28/25 08:33) Unknown Medications ???Medication ???Instructions ???Recorded ???Confirmed ???Type aspirin 81 mg chewable tablet 81 mg PO DAILY@0800 06/08/1303/28 History multivitamin with folic acid 400 1 tab PO DAILY 06/08/13 03/28/25 H istory mcg tablet sitagliptin phosphate 50 1 tab PO BID 07/02/18 03/28/25 His tory mg-metformin 1,000 mg tablet (Janumet) glimepiride 4 mg tablet 4 mg PO .daily @ dinner 01/05/21 0 03/28/25 History lisinopril 10 mg tablet 20 mg PO DAILY 07/01/22 03/28/25 H istory metoprolol tartrate 25 mg tablet 25 mg PO BID #180 tabs 09/20/24 Rx empagliflozin 25 mg tablet 25 mg PO QDAY #90 tabs 10/20/24 Rx isosorbide mononitrate 30 mg 30 mg PO DAILY #90 tabs 11/10/24 0 03/28/25 Rx tablet,extended release 24 hr atorvastatin 40 mg tablet 40 mg PO QDAY #90 tabs 03/14/25 Rx semaglutide 0.25 mg or 0.5 mg (2 0.25 mg subcut QWEEK 03/28/2503/18 History mg/3 mL) subcutaneous pen injector (Ozempic) Ejection fraction %: 55 Have you fallen in the past year?: No PFSH Medical History Non-smoker Hypertension Pure hypercholesterolemia Atherosclerotic heart disease of [place] coronary artery without angina pectoris Intermittent claudication Diabetes mellitus CAD (coronary artery disease) Other mcc (current) drug therapy Arteriosclerotic coronary artery disease Essential (primary) hypertension Hyperlipidemia Surgical History History of cardiac cath ( 03/2012) Family History Mother CAD (coronary artery disease) cabg Diabetes Brother pacemaker Father Diabetes Social History Smoking Status: Never smoker alcohol intake: never substance use type: does not use caffeine: Yes Type: coffee Number of servings: 12 what type of physical activity do you participate in: none seatbelt use: never do you feel safe at home: Yes ROS Const Const: Negative for fatigue, weakness, headache(s) or frequent falls Eyes Eyes: Negative for blurry vision ENT ENT: Negative for headache(s), dizziness or Nosebleed/epistaxis Cardio Chest Pain: No Palpitations: No Edema: None Muscle aches with walking: None Resp Respiratory: Negative for SOB with activity, SOB at rest or SOB orthopnea SOB lying down GI GI: Negative nausea, vomiting, heartburn, bright, red blood in stools or black,tarry stools : Negative for hematuria Neuro Neuro: Negative for dizziness, lightheadedness, near syncope, syncope, frequent falls, headache(s), weakness or blurry vision Endo Endo: Negative for fatigue Cardiology Exam Const Appearance: cooperative, comfortable, no acute distress and well developed; Negative diaphoretic or ill appearing Nutritional Appearance: obese Orientation: alert and oriented x3 Ambulating without assistive device Head Head: normal to inspection, normocephalic and atraumatic Ears: hearing grossly normal bilaterally Nose: external nose normal and Negative epistaxis Face and Sinus: face symmetric Eyes General: appearance normal, both eyes and all related structures Eyelids: eyelids normal Conjunctivae: conjunctivae normal; Negative scleral icterus EOM: EOM intact bilaterally Neck Neck: no JVD Carotids: normal carotid upstroke; Negative bruit Neck Mass: Negative Neck mass Chest Chest inspection: normal respiratory effort; Negative re (more content not included)... Normal [facility] Comprehensive Metabolic Prof ilon 09-13-2024 Albumin [Mass/Vol] 3.6 g/dL Normal 3.2-5.0 [facility] Comment on above: Performed By: #### L 500.4050, L500.4100 ####[facility] [address] [place], [address] Albumin/Globulin [Mass ratio] 0.8 {ratio} Low 0.9-2.4 [facility] Comment on above: Performed By: #### L 500.4050, L500.4100 ####[facility] [address] [place], [address] ALK P 71 U/L Normal 45-117 [facility] Comment on above: Performed By: #### L 500.4050, L500.4100 ####[facility] [address] [place], [address] ALT [Catalytic activity/Vol] 37 U/L Normal 16-61 [facility] Comment on above: Performed By: #### L 500.4050, L500.4100 ####[facility] [address] [place], [address] AST [Catalytic activity/Vol] 28 U/L Normal 15-37 [facility] Comment on above: Performed By: #### L 500.4050, L500.4100 ####[facility] [address] [place], [address] Bilirubin [Mass/Vol] 1.00 mg/dL Normal 0.20-1.00 [facility] Comment on above: Result Comment: For patients on eltrombopag therapy, use of Dimension [place] TBIL is not recommended. Performed By: #### L 500.4050, L500.4100 ####[facility] [address] [place], [address] BUN/CRE 18.2 RATIO Normal 10-20 [facility] Comment on above: Performed By: #### L 500.4050, L500.4100 ####[facility] [address] [place], [address] CA,Total 9.1 mg/dL Normal 8.5-10.1 [facility] Comment on above: Performed By: #### L 500.4050, L500.4100 ####[facility] [address] [place], [address] Chloride [Moles/Vol] 105 mmol/L Normal 98-107 [facility] Comment on above: Performed By: #### L 500.4050, L500.4100 ####[facility] [address] [place], [address] CO2 [Moles/Vol] 26.0 mmol/L Normal 21.0-32.0 [facility] Comment on above: Performed By: #### L 500.4050, L500.4100 ####[facility] [address] [place], [address] Creatinine [Mass/Vol] 0.93 mg/dL Normal 0.70-1.30 [facility] Comment on above: Result Comment: The validity of the calculated GFR GFRAA in patients over 70 years has not been determined. Clinical correlation is essential. Performed By: #### L 500.4050, L500.4100 ####[facility] [address] [place], [address] EST GFR - AA 102 mL/min Normal >60 [facility] Comment on above: Result Comment: Afri can [place] GFR Calc Performed By: #### L 500.4050, L500.4100 ####[facility] [address] [place], [address] GAP 6 Normal 5-15 [facility] Comment on above: Performed By: #### L 500.4050, L500.4100 ####[facility] [address] [place], [address] GFR/1.73 sq M.predicted among non-blacks MDRD (S/P/Bld) [Vol rate/Area] 84 mL/min/{1.73_m2} Normal >60 [facility] Comment on above: Result Comment: Non- GFR Calc Performed By: #### L 500.4050, L500.4100 ####[facility] [address] [place], [address] Globulin (S) [Mass/Vol] 4.4 g/dL High 2.2-4.2 [facility] Comment on above: Performed By: #### L 500.4050, L500.4100 ####[facility] [address] [place], [address] Glucose [Mass/Vol] 132 mg/dL High 74-106 [facility] Comment on above: Result Comment: Fast ing Glucose result greater than or equal to 126 mg/dL suggests DIABETES MELLITUS per A.D.A. criteria. Performed By: #### L 500.4050, L500.4100 ####[facility] [address] [place], [address] Potassium [Moles/Vol] 4.3 mmol/L Normal 3.5-5.1 [facility] Comment on above: Performed By: #### L 500.4050, L500.4100 ####[facility] [address] [place], [address] Sodium [Moles/Vol] 137 mmol/L Normal 136-145 [facility] Comment on above: Performed By: #### L 500.4050, L500.4100 ####[facility] [address] [place], [address] T PROT 8.0 g/dL Normal 6.4-8.2 [facility] Comment on above: Performed By: #### L 500.4050, L500.4100 ####[facility] [address] [place], [address] Urea nitrogen [Mass/Vol] 17 mg/dL Normal 7-18 [facility] Comment on above: Performed By: #### L 500.4050, L500.4100 ####[facility] [address] [place], [address] Lipid Profileon 09-13-2024 Cholesterol [Mass/Vol] 125 mg/dL Normal 200 [facility] Comment on above: Result Comment: <200 mg/dL Desirable 200-240 mg/dL Borderline >240 mg/dL High Risk Performed By: #### L 500.4050, L500.4100 ####[facility] [address] [place], [address] Cholesterol in HDL [Mass/Vol] 43 mg/dL Normal [facility] Comment on above: Result Comment: The drugs N-Acetylcysteine and Metamizole may falsely depress this assay. Reference Range HDL <40 mg/dL Low HDL Cholesterol HDL >or= 60 mg/dL High HDL Cholesterol Performed By: #### L 500.4050, L500.4100 ####[facility] [address] [place], [address] Cholesterol in LDL [Mass/Vol] 54 mg/dL Normal 0-130 [facility] Comment on above: Performed By: #### L 500.4050, L500.4100 ####[facility] [address] [place], [address] Cholesterol in VLDL [Mass/Vol] 28 mg/dL Normal 5-40 [facility] Comment on above: Performed By: #### L 500.4050, L500.4100 ####[facility] [address] [place], [address] Triglyceride [Mass/Vol] 140 mg/dL Normal [facility] Comment on above: Result Comment: The drugs N-Acetylcysteine and Metamizole may falsely depress this assay. Serum Triglycerides Reference Interval Normal <150 mg/dL Borderline high 150 - 199 mg/dL High 200 - 499 mg/dL Very High > or = 500 mg/dL Performed By: #### L 500.4050, L500.4100 ####[facility] [address] [place], [address] Basophil percentageOrdered B y: Javan Wells on 11-26-2023 Chloride [Moles/Vol] 105 mmol/L 98-107 [facility] Cholesterol [Mass/Vol] 155 mg/dL <200 [facility] Comment on above: <200 mg/dL Desirable 200-240 mg/dL Borderline >240 mg/dL High Risk Glucose [Mass/Vol] 163 mg/dL 74-106 [facility] Comment on above: Fasting Glucose resu lt greater than or equal to 126 mg/dL suggests DIABETES MELLITUS per A.D.A. criteria. Potassium [Moles/Vol] 4.3 mmol/L 3.5-5.1 [facility] Sodium [Moles/Vol] 136 mmol/L 136-145 [facility] Triglyceride [Mass/Vol] 234 mg/dL <199 [facility] Comment on above: The drugs N-Acetylcy steine and Metamizole may falsely depress this assay.Serum Triglycerides Reference Interval Normal <150 mg/dL Borderline high 150 - 199 mg/dL High 200 - 499 mg/dL Very High > or = 500 mg/dL Laboratory - Chemistry and C hemistry - challengeOrdered By: Javan Wells on 11-26-2023 Cholesterol in HDL [Mass/Vol] 43 mg/dL >40 [facility] Comment on above: The drugs N-Acetylcy steine and Metamizole may falsely depress this assay. Reference Range HDL <40 mg/dL Low HDL Cholesterol HDL >or= 60 mg/dL High HDL Cholesterol Cholesterol in LDL [Mass/Vol] 65 mg/dL 0-130 [facility] CO2 [Moles/Vol] 23.0 mmol/L 21.0-32.0 [facility] Urea nitrogen/Creatinine [Mass ratio] 19.7 mg/mg 10-20 [facility] No Panel InformationOrdered By: Javan Wells on 11-26-2023 Estimated GFR (MDRD) Amer 105 mL/min >60 [facility] Comment on above: GFR Calc Estimated GFR (MDRD) Non-Af Amer 87 mL/min >60 [facility] Comment on above: Non- GFR Calc VLDL Cholesterol 47 mg/dL 5-40 [facility] Serum or plasma calcium carol ann urement (mass/volume)Ordered By: Javan Wells on 11-26-2023 Calcium [Mass/Vol] 9.2 mg/dL 8.5-10.1 [facility] Serum or plasma creatinine m easurement (mass/volume)Ordered By: Javan Wells on 11-26-2023 Creatinine [Mass/Vol] 0.92 mg/dL 0.70-1.30 [facility] Comment on above: The validity of the calculated GFR & GFRAA in patients over 70 years has not been determined. Clinical correlation is essential. Serum or plasma urea nitroge n measurement (mass/volume)Ordered By: Javan Wells on 11-26-2023 Urea nitrogen [Mass/Vol] 18 mg/dL 7-18 [facility] Thin prep Papanicolaou smear with manual screeningOrdered By: Javan Wells on 11-26-2023 Thin prep Papanicolaou smear with manual screening 8 5-15 [facility] Absolute lymphocyte countOrd ered By: El James on 04-29-2023 Lymphocytes Auto (Unsp spec) [#/Vol] 1.81 10*3/uL 0.83-4.51 [facility] Basophil percentageOrdered B y: El James on 04-29-2023 Basophils/100 WBC (Bld) 0.9 % 0-1 [facility] Chloride [Moles/Vol] 106 mmol/L 98-107 [facility] Cholesterol [Mass/Vol] 148 mg/dL <200 [facility] Comment on above: <200 mg/dL Desirable 200-240 mg/dL Borderline >240 mg/dL High Risk Eosinophils/100 WBC (Bld) 7.1 % 0-5 [facility] Glucose [Mass/Vol] 138 mg/dL 74-106 [facility] Comment on above: Fasting Glucose resu lt greater than or equal to 126 mg/dL suggests DIABETES MELLITUS per A.D.A. criteria. Neutrophils (Bld) [#/Vol] 5.4 10*3/uL 2.0-7.7 [facility] Neutrophils/100 WBC (Bld) 61.0 % 47-70 [facility] Potassium [Moles/Vol] 4.2 mmol/L 3.5-5.1 [facility] Sodium [Moles/Vol] 139 mmol/L 136-145 [facility] Triglyceride [Mass/Vol] 184 mg/dL <199 [facility] Comment on above: The drugs N-Acetylcy steine and Metamizole may falsely depress this assay.Serum Triglycerides Reference Interval Normal <150 mg/dL Borderline high 150 - 199 mg/dL High 200 - 499 mg/dL Very High > or = 500 mg/dL WBC (Bld) [#/Vol] 8.8 10*3/uL 4.4-11.0 [facility] Blood erythrocytes count (nu mber/volume)Ordered By: El James on 04-29-2023 RBC (Bld) [#/Vol] 5.16 10*6/uL 4.6-6.2 [facility] Blood hemoglobin measurement (mass/volume)Ordered By: El James on 04-29-2023 Hemoglobin (Bld) [Mass/Vol] 15.5 g/dL 13.0-16.5 [facility] Blood lymphocytes/100 leukoc ytesOrdered By: El James on 04-29-2023 Lymphocytes/100 WBC (Bld) 20.5 % 19-41 [facility] Blood monocytes/100 leukocyt esOrdered By: El James on 04-29-2023 Monocytes/100 WBC (Bld) 9.9 % 0-10 [facility] Blood platelet mean volumeOr dered By: El James on 04-29-2023 Platelet mean volume (Bld) [Entitic vol] 10.9 fL 6.2-12.0 [facility] Determination of erythrocyte mean corpuscular volume (MCV)Ordered By: El James on 04-29-2023 MCV (RBC) [Entitic vol] 91.3 fL 80-94 [facility] Glucose Glucometer (dC) [M ass/Vol]Ordered By: Mo Foley on 04-29-2023 Glucose [Mass/Vol] 144 mg/dL 74-106 [facility] Comment on above: MANAGEMENT OF PATIEN T CARE PER NURSING PROTOCOL Hematocrit Auto (Bld) [Volum e fraction]Ordered By: El James on 04-29-2023 Hematocrit (Bld) [Volume fraction] 47.1 % 40-54 [facility] Laboratory - Chemistry and C hemistry - challengeOrdered By: El James on 04-29-2023 CO2 [Moles/Vol] 28.0 mmol/L 21.0-32.0 [facility] Urea nitrogen/Creatinine [Mass ratio] 16.4 mg/mg 10-20 [facility] Laboratory - Hematology and Cell countsOrdered By: El James on 04-29-2023 Erythrocyte distribution width (RBC) [Entitic vol] 46.9 fL 35.1-43.9 [facility] Erythrocyte distribution width (RBC) [Ratio] 13.8 % 11.6-14.6 [facility] Immature granulocytes/100 WBC (Bld) 0.600 % 0.0-0.9 [facility] Comment on above: IG% - Immature Granu locytes (promyelocytes, myelocytes and metamyelocytes) > 1% indicates that a LEFT SHIFT is Present. MCH (RBC) [Entitic mass] 30.0 pg 27.0-32.0 [facility] Nucleated RBC/100 WBC (Bld) [Ratio] 0 % 0-5 [facility] MCHC Auto (RBC) [Mass/Vol]Or dered By: El James on 04-29-2023 MCHC (RBC) [Mass/Vol] 32.9 g/dL 32-36 [facility] No Panel InformationOrdered By: El James on 04-29-2023 Estimated Creatinine Clearance Calc 71.93 ml/min [facility] Estimated GFR (MDRD) Amer 114 mL/min >60 [facility] Comment on above: GFR Calc Estimated GFR (MDRD) Non-Af Amer 94 mL/min >60 [facility] Comment on above: Non- GFR Calc Platelets bldOrdered By: Chandan James on 04-29-2023 Platelets (Bld) [#/Vol] 178 10*3/uL 150-450 [facility] Serum or plasma calcium carol ann urement (mass/volume)Ordered By: El James on 04-29-2023 Calcium [Mass/Vol] 8.8 mg/dL 8.5-10.1 [facility] Serum or plasma cholesterol in HDL measurement (mass/volume)Ordered By: El James on 04-29-2023 Cholesterol in HDL [Mass/Vol] 40 mg/dL >40 [facility] Comment on above: The drugs N-Acetylcy steine and Metamizole may falsely depress this assay. Reference Range HDL <40 mg/dL Low HDL Cholesterol HDL >or= 60 mg/dL High HDL Cholesterol Serum or plasma cholesterol in VLDL measurement (mass/volume)Ordered By: El James on 04-29-2023 Cholesterol in VLDL [Mass/Vol] 37 mg/dL 5-40 [facility] Serum or plasma creatinine m easurement (mass/volume)Ordered By: El James on 04-29-2023 Creatinine [Mass/Vol] 0.85 mg/dL 0.70-1.30 [facility] Comment on above: The validity of the calculated GFR & GFRAA in patients over 70 years has not been determined. Clinical correlation is essential. Serum or plasma low density lipoprotein (LDL) cholesterol measurement (mass/volume)Ordered By: El James on 04-29-2023 Cholesterol in LDL [Mass/Vol] 71 mg/dL 0-130 [facility] Serum or plasma urea nitroge n measurement (mass/volume)Ordered By: El James on 04-29-2023 Urea nitrogen [Mass/Vol] 14 mg/dL 7-18 [facility] Thin prep Papanicolaou smear with manual screeningOrdered By: [facility]23 Thin prep Papanicolaou smear with manual screening 5 5-15 [facility] Whole blood hemoglobin A1c/t otal hemoglobin ratio (mass fraction)Ordered By: El maría on 04-29-2023 HbA1c (Bld) [Mass fraction] 7.3 % 3.8-5.6 [facility] Comment on above: Normal < 5.7 % Predi abetic 5.7 - 6.4 % Diabetic >or= 6.5 % Please note range changes. Absolute lymphocyte countOrd ered By: Padma Enamorado on 04-28-2023 Lymphocytes Auto (Unsp spec) [#/Vol] 2.23 10*3/uL 0.83-4.51 [facility] Basophil percentageOrdered B y: Padma Enamorado on 04-28-2023 Basophils/100 WBC (Bld) 0.8 % 0-1 [facility] Chloride [Moles/Vol] 103 mmol/L 98-107 [facility] Eosinophils/100 WBC (Bld) 6.7 % 0-5 [facility] Glucose [Mass/Vol] 122 mg/dL 74-106 [facility] Comment on above: Fasting Glucose resu lt from 100 to 125 mg/dL suggests IMPAIRED HOMEOSTASIS per A.D.A. criteria. Neutrophils (Bld) [#/Vol] 6.6 10*3/uL 2.0-7.7 [facility] Neutrophils/100 WBC (Bld) 61.9 % 47-70 [facility] Potassium [Moles/Vol] 3.9 mmol/L 3.5-5.1 [facility] Sodium [Moles/Vol] 139 mmol/L 136-145 [facility] WBC (Bld) [#/Vol] 10.7 10*3/uL 4.4-11.0 [facility] Blood erythrocytes count (nu mber/volume)Ordered By: Padma Enamorado on 04-28-2023 RBC (Bld) [#/Vol] 5.33 10*6/uL 4.6-6.2 [facility] Blood hemoglobin measurement (mass/volume)Ordered By: Padma Enamorado on 04-28-2023 Hemoglobin (Bld) [Mass/Vol] 15.8 g/dL 13.0-16.5 [facility] Blood lymphocytes/100 leukoc ytesOrdered By: Padma Enamorado on 04-28-2023 Lymphocytes/100 WBC (Bld) 20.8 % 19-41 [facility] Blood monocytes/100 leukocyt esOrdered By: Padma Enamorado on 04-28-2023 Monocytes/100 WBC (Bld) 9.1 % 0-10 [facility] Blood platelet mean volumeOr dered By: Padma Enamorado on 04-28-2023 Platelet mean volume (Bld) [Entitic vol] 10.4 fL 6.2-12.0 [facility] Determination of erythrocyte mean corpuscular volume (MCV)Ordered By: Padma Enamorado on 04-28-2023 MCV (RBC) [Entitic vol] 92.5 fL 80-94 [facility] Erythrocyte sedimentation ra teOrdered By: Padma Enamorado on 04-28-2023 ESR (Bld) [Velocity] 6 mm/h 0-20 [facility] ESR (Bld) [Velocity] 8 mm/h 0-20 [facility] Comment on above: Previous reported re sult: 6 mm/hrEdited by: CM on 04/29/23:0118 AMENDED REPORT 04/29/23 0118 SED RATE previously reported as: 6 mm/hr Erythrocyte sedimentation ra teOrdered By: Barbie Bernardo on 04-28-2023 ESR (Bld) [Velocity] 3 mm/h 0-20 [facility] Hematocrit Auto (Bld) [Volum e fraction]Ordered By: Padma Enamorado on 04-28-2023 Hematocrit (Bld) [Volume fraction] 49.3 % 40-54 [facility] INR in Blood by Coagulation assayOrdered By: Padma Enamorado on 04-28-2023 INR Coag (Bld) [Relative time] 1.0 {INR} [facility] Laboratory - Chemistry and C hemistry - challengeOrdered By: Padma Enamorado on 04-28-2023 CO2 [Moles/Vol] 27.0 mmol/L 21.0-32.0 [facility] Urea nitrogen/Creatinine [Mass ratio] 14.8 mg/mg 10-20 [facility] Laboratory - CoagulationOrde red By: Padma Enamorado on 04-28-2023 aPTT Coag (Bld) [Time] 26.7 s 24.1-36.2 [facility] PT Coag (PPP) [Time] 13.3 s 11.7-14.9 [facility] Laboratory - Hematology and Cell countsOrdered By: Padma Enamorado on 04-28-2023 Erythrocyte distribution width (RBC) [Entitic vol] 47.0 fL 35.1-43.9 [facility] Erythrocyte distribution width (RBC) [Ratio] 13.8 % 11.6-14.6 [facility] Immature granulocytes/100 WBC (Bld) 0.700 % 0.0-0.9 [facility] Comment on above: IG% - Immature Granu locytes (promyelocytes, myelocytes and metamyelocytes) > 1% indicates that a LEFT SHIFT is Present. MCH (RBC) [Entitic mass] 29.6 pg 27.0-32.0 [facility] Nucleated RBC/100 WBC (Bld) [Ratio] 0 % 0-5 [facility] MCHC Auto (RBC) [Mass/Vol]Or dered By: Padma Enamorado on 04-28-2023 MCHC (RBC) [Mass/Vol] 32.0 g/dL 32-36 [facility] No Panel InformationOrdered By: Padma Enamorado on 04-28-2023 Estimated GFR (MDRD) Amer 81 mL/min >60 [facility] Comment on above: GFR Calc Estimated GFR (MDRD) Non-Af Amer 67 mL/min >60 [facility] Comment on above: Non- GFR Calc Platelets bldOrdered By: Pamela Enamorado on 04-28-2023 Platelets (Bld) [#/Vol] 192 10*3/uL 150-450 [facility] Serum or plasma C reactive p rotein measurement (mass/volume)Ordered By: Padma Enamorado on 04-28-2023 CRP [Mass/Vol] 5.69 mg/L 0.0-3.0 [facility] Comment on above: C-Reactive Protein ( CRP) provides useful information for thediagnosis, therapy and monitoring of inflammatory processesand associated diseases. For the evaluation of Relative Riskfor Cardiovascular Disease, a High Sensitivity CRP (HSCRP)should be ordered. Serum or plasma calcium carol ann urement (mass/volume)Ordered By: Padma Enamorado on 04-28-2023 Calcium [Mass/Vol] 9.1 mg/dL 8.5-10.1 [facility] Serum or plasma creatinine m easurement (mass/volume)Ordered By: Padma Enamorado on 04-28-2023 Creatinine [Mass/Vol] 1.15 mg/dL 0.70-1.30 [facility] Comment on above: The validity of the calculated GFR & GFRAA in patients over 70 years has not been determined. Clinical correlation is essential. Serum or plasma urea nitroge n measurement (mass/volume)Ordered By: Padma Enamorado on 04-28-2023 Urea nitrogen [Mass/Vol] 17 mg/dL 7-18 [facility] Thin prep Papanicolaou smear with manual screeningOrdered By: Padma Enamorado on 04-28-2023 Thin prep Papanicolaou smear with manual screening 9 5-15 [facility] Basophil percentageon 2021 Bilirubin [Mass/Vol] 1.50 mg/dL 0.20-1.00 [facility] Work Phone: Comment on above: For patients on eltr ombopag therapy, use of Dimension Allen TBIL is not recommended. Cholesterol [Mass/Vol] 162 mg/dL <200 [facility] Work Phone: Comment on above: <200 mg/dL Desirable 200-240 mg/dL Borderline >240 mg/dL High Risk Protein [Mass/Vol] 8.3 g/dL 6.4-8.2 [facility] Work Phone: Triglyceride [Mass/Vol] 219 mg/dL <199 [facility] Work Phone: Comment on above: The drugs N-Acetylcy steine and Metamizole may falsely depress this assay.Serum Triglycerides Reference Interval Normal <150 mg/dL Borderline high 150 - 199 mg/dL High 200 - 499 mg/dL Very High > or = 500 mg/dL Direct bilirubinon Bilirubin.direct [Mass/Vol] 0.23 mg/dL 0.00-0.30 [facility] Work Phone: [phone] Laboratory - Chemistry and C hemistry - challengeon 06-25-2022 ALP [Catalytic activity/Vol] 75 U/L 45-117 [facility] Work Phone: ALT [Catalytic activity/Vol] 32 U/L 16-61 [facility] Work Phone: [phone] Globulin (S) [Mass/Vol] 4.6 g/dL 2.2-4.2 [facility] Work Phone: [phone] Serum or plasma albumin carol ann urement (mass/volume)on 06-25-2022 Albumin [Mass/Vol] 3.7 g/dL 3.2-5.0 [facility] Work Phone: [phone] Serum or plasma cholesterol in HDL measurement (mass/volume)on 06-25-2022 Cholesterol in HDL [Mass/Vol] 47 mg/dL >40 [facility] Work Phone: Comment on above: The drugs N-Acetylcy steine and Metamizole may falsely depress this assay. Reference Range HDL <40 mg/dL Low HDL Cholesterol HDL >or= 60 mg/dL High HDL Cholesterol Serum or plasma cholesterol in VLDL measurement (mass/volume)on 06-25-2022 Cholesterol in VLDL [Mass/Vol] 44 mg/dL 5-40 [facility] Work Phone: [phone] Serum or plasma low density lipoprotein (LDL) cholesterol measurement (mass/volume)on 06-25-2022 Cholesterol in LDL [Mass/Vol] 71 mg/dL 0-130 [facility] Work Phone: [phone] Thin prep Papanicolaou smear with manual screeningon 06-25-2022 Thin prep Papanicolaou smear with manual screening 35 U/L 15-37 [facility] Work Phone: [phone] Comment on above: Slight Hemolysis, Re sult may be falsely increased. Basophil percentageon 2021 Chloride [Moles/Vol] 102 mmol/L 98-107 [facility] Work Phone: [phone] Cholesterol [Mass/Vol] 141 mg/dL <200 [facility] Work Phone: [phone] Comment on above: <200 mg/dL Desirable 200-240 mg/dL Borderline >240 mg/dL High Risk Glucose [Mass/Vol] 140 mg/dL 74-106 [facility] Work Phone: [phone] Comment on above: Fasting Glucose resu lt greater than or equal to 126 mg/dL suggests DIABETES MELLITUS per A.D.A. criteria. Potassium [Moles/Vol] 4.7 mmol/L 3.5-5.1 [facility] Work Phone: [phone] Comment on above: Slight Hemolysis, Re sult may be falsely increased. Sodium [Moles/Vol] 135 mmol/L 136-145 [facility] Work Phone: [phone] Triglyceride [Mass/Vol] 161 mg/dL <199 [facility] Work Phone: [phone] Comment on above: The drugs N-Acetylcy steine and Metamizole may falsely depress this assay.Serum Triglycerides Reference Interval Normal <150 mg/dL Borderline high 150 - 199 mg/dL High 200 - 499 mg/dL Very High > or = 500 mg/dL Laboratory - Chemistry and C hemistry - challengeon 05-30-2022 CO2 [Moles/Vol] 25.0 mmol/L 21.0-32.0 [facility] Work Phone: [phone] Urea nitrogen/Creatinine [Mass ratio] 17.3 mg/mg 10-20 [facility] Work Phone: [phone] No Panel Informationon 05-30 Estimated GFR (MDRD) Amer 97 mL/min >60 [facility] Work Phone: Comment on above: GFR Calc Estimated GFR (MDRD) Non-Af Amer 80 mL/min >60 [facility] Work Phone: Comment on above: Non- GFR Calc Serum or plasma calcium carol ann urement (mass/volume)on 05-30-2022 Calcium [Mass/Vol] 9.2 mg/dL 8.5-10.1 [facility] Work Phone: Serum or plasma cholesterol in HDL measurement (mass/volume)on 05-30-2022 Cholesterol in HDL [Mass/Vol] 39 mg/dL >40 [facility] Work Phone: Comment on above: The drugs N-Acetylcy steine and Metamizole may falsely depress this assay. Reference Range HDL <40 mg/dL Low HDL Cholesterol HDL >or= 60 mg/dL High HDL Cholesterol Serum or plasma cholesterol in VLDL measurement (mass/volume)on 05-30-2022 Cholesterol in VLDL [Mass/Vol] 32 mg/dL 5-40 [facility] Work Phone: Serum or plasma creatinine m easurement (mass/volume)on 05-30-2022 Creatinine [Mass/Vol] 0.98 mg/dL 0.70-1.30 [facility] Work Phone: Comment on above: The validity of the calculated GFR & GFRAA in patients over 70 years has not been determined. Clinical correlation is essential. Serum or plasma low density lipoprotein (LDL) cholesterol measurement (mass/volume)on 05-30-2022 Cholesterol in LDL [Mass/Vol] 70 mg/dL 0-130 [facility] Work Phone: Serum or plasma urea nitroge n measurement (mass/volume)on 05-30-2022 Urea nitrogen [Mass/Vol] 17 mg/dL 7-18 [facility] Work Phone: [phone] Thin prep Papanicolaou smear with manual screeningon 05-30-2022 Thin prep Papanicolaou smear with manual screening 8 5-15 [facility] Work Phone: Basophil percentageon 2021 Chloride [Moles/Vol] 101 mmol/L 98-107 [facility] Work Phone: Glucose [Mass/Vol] 141 mg/dL 74-106 [facility] Work Phone: Comment on above: Fasting Glucose resu lt greater than or equal to 126 mg/dL suggests DIABETES MELLITUS per A.D.A. criteria. Potassium [Moles/Vol] 4.8 mmol/L 3.5-5.1 [facility] Work Phone: Sodium [Moles/Vol] 136 mmol/L 136-145 [facility] Work Phone: Laboratory - Chemistry and C hemistry - challengeon 02-25-2022 CO2 [Moles/Vol] 29.0 mmol/L 21.0-32.0 [facility] Work Phone: Urea nitrogen/Creatinine [Mass ratio] 18.5 mg/mg 10-20 [facility] Work Phone: No Panel Informationon 02-25 Estimated GFR (MDRD) Amer 104 mL/min >60 [facility] Work Phone: Comment on above: GFR Calc Estimated GFR (MDRD) Non-Af Amer 86 mL/min >60 [facility] Work Phone: Comment on above: Non- GFR Calc Serum or plasma calcium carol ann urement (mass/volume)on 02-25-2022 Calcium [Mass/Vol] 9.3 mg/dL 8.5-10.1 [facility] Work Phone: Serum or plasma creatinine m easurement (mass/volume)on 02-25-2022 Creatinine [Mass/Vol] 0.92 mg/dL 0.70-1.30 [facility] Work Phone: Comment on above: The validity of the calculated GFR & GFRAA in patients over 70 years has not been determined. Clinical correlation is essential. Serum or plasma urea nitroge n measurement (mass/volume)on 02-25-2022 Urea nitrogen [Mass/Vol] 17 mg/dL 7-18 [facility] Work Phone: [phone] Thin prep Papanicolaou smear with manual screeningon 02-25-2022 Thin prep Papanicolaou smear with manual screening 6 5-15 [facility] Work Phone: Basophil percentageon 2021 Bilirubin [Mass/Vol] 1.40 mg/dL 0.20-1.00 [facility] Work Phone: [phone] Comment on above: For patients on eltr ombopag therapy, use of Dimension Allen TBIL is not recommended. Cholesterol [Mass/Vol] 145 mg/dL <200 [facility] Work Phone: [phone] Comment on above: <200 mg/dL Desirable 200-240 mg/dL Borderline >240 mg/dL High Risk Protein [Mass/Vol] 8.1 g/dL 6.4-8.2 [facility] Work Phone: [phone] Triglyceride [Mass/Vol] 192 mg/dL <199 [facility] Work Phone: [phone] Comment on above: The drugs N-Acetylcy steine and Metamizole may falsely depress this assay.Serum Triglycerides Reference Interval Normal <150 mg/dL Borderline high 150 - 199 mg/dL High 200 - 499 mg/dL Very High > or = 500 mg/dL Direct bilirubinon 2 Bilirubin.direct [Mass/Vol] 0.24 mg/dL 0.00-0.30 [facility] Work Phone: [phone] Laboratory - Chemistry and C hemistry - challengeon 12-25-2021 ALP [Catalytic activity/Vol] 80 U/L 45-117 [facility] Work Phone: [phone] ALT [Catalytic activity/Vol] 39 U/L 16-61 [facility] Work Phone: [phone] Globulin (S) [Mass/Vol] 4.4 g/dL 2.2-4.2 [facility] Work Phone: [phone] Serum or plasma albumin carol nan urement (mass/volume)on 12-25-2021 Albumin [Mass/Vol] 3.7 g/dL 3.2-5.0 [facility] Work Phone: Serum or plasma cholesterol in HDL measurement (mass/volume)on 12-25-2021 Cholesterol in HDL [Mass/Vol] 42 mg/dL >40 [facility] Work Phone: Comment on above: The drugs N-Acetylcy steine and Metamizole may falsely depress this assay. Reference Range HDL <40 mg/dL Low HDL Cholesterol HDL >or= 60 mg/dL High HDL Cholesterol Serum or plasma cholesterol in VLDL measurement (mass/volume)on 12-25-2021 Cholesterol in VLDL [Mass/Vol] 38 mg/dL 5-40 [facility] Work Phone: Serum or plasma low density lipoprotein (LDL) cholesterol measurement (mass/volume)on 12-25-2021 Cholesterol in LDL [Mass/Vol] 65 mg/dL 0-130 [facility] Work Phone: Thin prep Papanicolaou smear with manual screeningon 12-25-2021 Thin prep Papanicolaou smear with manual screening 31 U/L 15-37 [facility] Work Phone: Office Visit: [facility] 03-26-20 17 Fall risk assessment No Invalid Interpretation Code [facility] Work Phone: [phone] Replaced Document: Clair Patrick CG Observationson 03-26-2017 EKG QRS axis -26 deg [facility] Work Phone: [phone] electrocardiogram interpretation 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 ABNORMAL [facility] Work Phone: [phone] P [place] 18 deg [facility] Work Phone: [phone] P wave axis, electrocardiogram 18 deg Invalid Interpretation Code [facility] Work Phone: [phone] SD Interval 202 ms [facility] Work Phone: [phone] SD interval, electrocardiogram 202 ms Invalid Interpretation Code [facility] Phone: [phone] Pulse (Heart Rate) 70 /min Invalid Interpretation Code [facility] Phone: [phone] QRS axis, electrocardiogram -26 deg Invalid Interpretation Code [facility] Work Phone: [phone] QRS Duration 102 ms [facility] Work Phone: [phone] QRS duration, electrocardiogram 102 ms Invalid Interpretation Code [facility] Work Phone: [phone] QT Interval new path ms [facility] Work Phone: [phone] QT interval, electrocardiogram new path ms Invalid Interpretation Code [facility] Work Phone: [phone] QTc Thomas 409 ms [facility] Work Phone: [phone] T [place] -1 deg [facility] Phone: [phone] T wave axis, electrocardiogram -1 deg Invalid Interpretation Code [facility] Phone: [phone] Office Visit: [facility] 02-13-20 17 Cholesterol in HDL mass conc 43 mg/dL Invalid Interpretation Code [facility] Phone: [phone] Cholesterol in LDL mass conc 90 mg/dL Invalid Interpretation Code [facility] Phone: [phone] Cholesterol mass conc 169 mg/dL Invalid Interpretation Code [facility] Phone: [phone] Triglyceride mass conc 179 mg/dL Invalid Interpretation Code [facility] Phone: [phone] Office Visiton 09-23-2016 Dietary management education, guidance, and counseling (procedure) yes Invalid Interpretation Code [facility] Phone: [phone] Documentation of current medications (procedure) Done Invalid Interpretation Code [facility] Phone: [phone] Protein mass conc Done [facility] Phone: [phone] Tobacco smoking status NHIS Former smoker [facility] Work Phone: [phone] Tobacco use CPHS Former smoker Invalid Interpretation Code [facility] Phone: [phone] Clinical Lists Updateon Left ventricular Ejection fraction 55 % Invalid Interpretation Code [facility] Phone: Clinical Lists Updateon 12-3 Chloride molar conc 100 mmol/L Invalid Interpretation Code [facility] Work Phone: [phone] Cholesterol in HDL mass conc 44 mg/dL Invalid Interpretation Code [facility] Work Phone: [phone] Cholesterol in LDL mass conc 104 mg/dL Invalid Interpretation Code [facility] Work Phone: [phone] Cholesterol mass conc 175 mg/dL Invalid Interpretation Code [facility] Work Phone: [phone] CO2 25.0 mmol/L Invalid Interpretation Code [facility] Work Phone: [phone] CO2 ppres (BldV) 25.0 mmol/L [facility] Work Phone: [phone] Creatinine mass conc 1.03 mg/dL Invalid Interpretation Code [facility] Work Phone: [phone] Lipoprotein.pre-beta mass conc 27 mg/dL Invalid Interpretation Code [facility] Work Phone: [phone] Potassium molar conc 4.6 mmol/L Invalid Interpretation Code [facility] Work Phone: [phone] Sodium molar conc 133 mmol/L Low [facility] Work Phone: [phone] Triglyceride mass conc 136 mg/dL Invalid Interpretation Code [facility] Work Phone: [phone] Urea nitrogen mass conc 16 mg/dL Invalid Interpretation Code [facility] Work Phone: [phone] Replaced Document: Clair Patrick CG Observationson 01-25-2016 EKG QRS axis -23 deg [facility] Work Phone: [phone] Interpretation 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 ABNORMAL [facility] Work Phone: [phone] P [place] 18 deg [facility] Work Phone: [phone] SD Interval 196 ms [facility] Work Phone: [phone] QRS Duration 98 ms [facility] Work Phone: [phone] QT Interval new path ms [facility] Work Phone: QTc Thomas 429 ms [facility] Work Phone: T [place] -1 deg [facility] Work Phone: [phone] Lab Report: Liver Profileon 01-20-2016 Albumin mass conc 3.4 g/dL Invalid Interpretation Code 3.4-5.0 [facility] Work Phone: [phone] Alkaline phosphatase (ALP) 73 U/L Invalid Interpretation Code 50-136 [facility] Work Phone: [phone] ALP enzyme act/vol (Bld) 73 U/L 50-136 [facility] Work Phone: [phone] ALT enzyme act/vol 32 U/L Invalid Interpretation Code 12-78 [facility] Work Phone: [phone] AST enzyme act/vol 20 U/L Invalid Interpretation Code 15-37 [facility] Work Phone: [phone] Bilirubin mass conc 0.80 mg/dL Invalid Interpretation Code 0.20-1.00 [facility] Work Phone: [phone] Bilirubin.direct mass conc 0.17 mg/dL Invalid Interpretation Code 0.00-0.30 [facility] Work Phone: [phone] Globulin 4.1 g/dL High 2.3-3.5 [facility] Work Phone: [phone] Globulin mass conc (S) 4.1 g/dL High 2.3-3.5 [facility] Work Phone: [phone] Protein mass conc 7.5 g/dL Invalid Interpretation Code 6.4-8.2 [facility] Work Phone: [phone] Lab Report: Basic Metabolic Profile (BMP)on 10-20-2015 Anion gap 7 mmol/L Invalid Interpretation Code 5-15 [facility] Work Phone: [phone] Anion gap molar conc 7 mmol/L 5-[address] [facility] Work Phone: [phone] Calcium mass conc 9.3 mg/dL Invalid Interpretation Code 8.5-10.1 [facility] Work Phone: [phone] eGFR (non-black) 76 mL/min/{1.73_m2} Invalid Interpretation Code >60 [facility] Work Phone: [phone] EST GFR - AA 76 mL/min >60 [facility] Work Phone: [phone] GFR/1.73 sq M predicted among non-blacks MDRD vol rate/area (S/P/Bld) 63 mL/min/{1.73_m2} Invalid Interpretation Code >60 [facility] Work Phone: [phone] Glucose 219 mg/dL High 70-110 [facility] Work Phone: [phone] Glucose mass conc 219 mg/dL High 70-110 [facility] Work Phone: [phone] Urea nitrogen/Creatinine mass ratio 17.9 RATIO Invalid Interpretation Code - [facility] Work Phone: [phone] Office Visit: [facility] 11-05-19 15 cardiac risk group C Invalid Interpretation Code [facility] Work Phone: [phone] General cardiovascular disease 10Y risk [#] Bard.Dione'Katina N/A Invalid Interpretation Code [facility] Work Phone: [phone] Tobacco smoking status NHIS Current Invalid Interpretation Code [facility] Work Phone: [phone] Office Visiton 09-24-2012 Alcoholism counseling (procedure) no Invalid Interpretation Code [facility] Work Phone: [phone] Protein mass conc no [facility] Work Phone: [phone]) Lab Report: TSHon 07-22-2012 Thyrotropin Qn 3.30 u[iU]/mL Normal 0.358-3.74 [facility] Work Phone: [phone] Lab Report: CBCon 04-03-2012 Erythrocytes (RBC) 5.05 10*6/uL Normal 4.6-6.[address] [facility] Work Phone: [phone] Hematocrit (HCT) 44.5 % Normal 40-54 [facility] Work Phone: [phone] Hematocrit Volume Fraction (Bld) 44.5 % Normal 40-54 [facility] Work Phone: [phone] Hemoglobin mass conc (Bld) 15.2 G.DL Normal 13.0-16.5 [facility] Work Phone: [phone] Platelets 227 10*3/mm3 Normal 150-450 [facility] Work Phone: [phone] Platelets #/vol (Bld) 227 10*3/mm3 Normal 150-450 [facility] Work Phone: [phone] RBC #/vol (Bld) 5.05 10*6/uL Normal 4.6-6.2 [facility] Work Phone: [phone] WBC #/vol (Bld) 11.6 10*3/uL High 4.4-11.0 [facility] Work Phone: [phone] WBC (Leukocytes) 11.6 10*3/uL High 4.4-11.0 [facility] Work Phone: [phone] Lab Report: PTon 04-03-2012 INR Coag RelTime (PPP) 1.1 {INR} Normal [facility] Work Phone: [phone] INR in blood by coagulation 1.1 {INR} Normal [facility] Work Phone: [phone] prothrombin time, actual/normal, ratio 13.6 SECONDS Normal 11.9-14.4 [facility] Work Phone: [phone] PTP 13.6 SECONDS Normal 11.9-14.4 [facility] Work Phone: [phone] Lab Report: PTTon 04-03-2012 aPTT Coag time (Bld) 34.2 s Normal 24.1-36.[address] [facility] Work Phone: [phone] Replaced Document: [employer] E CG Observationson 03-12-2012 Pulse (Heart Rate) 416 ms Invalid Interpretation Code [facility] Work Phone: [phone] Vital Signs Date Time Vital Sign Value Performing Clinician Faci lity 03-28-2025 07:40-0400 Body height 167.[address] Javan Wells MD Work Phone: [facility] 03-28-2025 07:40-0400 Body mass index (BMI) [Ratio] 47.4 kg/m2 Dr. Javan Wells MD Work Phone: [facility] 03-28-2025 07:40-0400 Body weight 133.[address] Javan Wells MD Work Phone: [facility] 03-28-2025 07:40-0400 Diastolic blood pressure 81 mm[Hg] Dr. aJvan Wells MD Work Phone: [facility] 03-28-2025 07:40-0400 Heart rate 54 /min Dr. Javan Wells MD Work Phone: [facility] 03-28-2025 07:40-0400 Respiratory rate 18 /min Dr. Javan Wells MD Work Phone: [phone] [address] 03-28-2025 07:40-0400 SaO2% (BldA) [Mass fraction] 97 % Dr. Javan Wells MD Work Phone: [phone] [address] 03-28-2025 07:40-0400 Systolic blood pressure 122 mm[Hg] Dr. Javan Wells MD Work Phone: [phone] [place] [address] 04-29-2023 14:00-0400 Body mass index (BMI) [Ratio] 49.9 kg/m2 Dr. Javan Wells Work Phone: [phone] [address] 04-29-2023 12:23-0400 Diastolic blood pressure 99 mm[Hg] Dr. Javan Wells Work Phone: [phone] [place] [address] 04-29-2023 12:23-0400 Heart rate 62 /min Dr. Javan Wells Work Phone: 1([phone])[phone] [place] [address] 04-29-2023 12:23-0400 Systolic blood pressure 115 mm[Hg] Dr. Javan Wells Work Phone: [facility] 04-29-2023 12:13-0400 Body temperature 98.1 [degF] Dr. Javan Wells Work Phone: 6([phone])[phone] [place] [address] 04-29-2023 12:13-0400 Respiratory rate 16 /min Dr. Javan Wells Work Phone: [phone] [address] 04-29-2023 12:13-0400 SaO2% (BldA) [Mass fraction] 97 % Dr. Javan Wells Work Phone: 7([phone])[phone] [place] [address] 04-28-2023 22:23-0400 Body mass index (BMI) [Ratio] 49.9 kg/m2 Dr. Javan Wells Work Phone: [facility] 04-28-2023 21:01-0400 Body height 167.[address] Javan Wells Work Phone: [facility] 04-28-2023 21:01-0400 Body weight 140.[address] Javan Wells Work Phone: [facility] 04-28-2023 19:22-0400 Body temperature 97.2 [degF] [facility] 04-28-2023 19:22-0400 Diastolic blood pressure 80 mm[Hg] [facility] 04-28-2023 19:22-0400 Heart rate 54 /min [facility] 04-28-2023 19:22-0400 Respiratory rate 26 /min [facility] 04-28-2023 19:22-0400 SaO2% (BldA) [Mass fraction] 96 % [facility] 04-28-2023 19:22-0400 Systolic blood pressure 163 mm[Hg] [facility] 04-28-2023 15:33-0400 Body height 167.64 cm [facility] 01-02-2022 11:29-0400 Body height 167.[address] Javan Wells Work Phone: [facility] Work Phone: 01-02-2022 11:29-0400 Body mass index (BMI) [Ratio] 50 kg/m2 Dr. Javan Wells Work Phone: [facility] Work Phone: 01-02-2022 11:29-0400 Body weight 140.[address] Javan Wells Work Phone: [facility] Work Phone: 01-02-2022 11:29-0400 Diastolic blood pressure 80 mm[Hg] Dr. Javan Wells Work Phone: [facility] Work Phone: 01-02-2022 11:29-0400 Heart rate 66 /min Dr. Javan Wells Work Phone: [facility] Work Phone: 01-02-2022 11:29-0400 Respiratory rate 18 /min Dr. Javan Wells Work Phone: [facility] Work Phone: 01-02-2022 11:29-0400 SaO2% (BldA) [Mass fraction] 96 % Dr. Javan Wells Work Phone: [facility] Work Phone: 01-02-2022 11:29-0400 Systolic blood pressure 143 mm[Hg] Dr. Javan Wells Work Phone: [facility] Work Phone: 03-26-2017 09:48-0400 Heart rate 70 /min [facility] Work Phone: 03-26-2017 09:36-0400 BMI (Body Mass Index) 50.97 kg/m2 [facility] Work Phone: 03-26-2017 09:36-0400 BP Diastolic 80 mm[Hg] Desirae Fer [facility] Work Phone: 03-26-2017 09:36-0400 BP Systolic 124 mm[Hg] Desirae Fer [facility] Work Phone: 03-26-2017 09:36-0400 Height 168.91 cm Desirae Fer [facility] Work Phone: 03-26-2017 09:36-0400 Pulse (Heart Rate) 70 /min Desirae Fer [facility] Work Phone: 03-26-2017 09:36-0400 Respiratory Rate 20 /min Desiraekimmy [facility] Work Phone: 03-26-2017 09:36-0400 Weight 145.42 kg Desirae Fer [facility] Work Phone: 09-23-2016 09:37-0500 BMI (Body Mass Index) 50.9 kg/m2 [facility] Work Phone: 09-23-2016 09:37-0500 BP Diastolic 78 mm[Hg] Harumi DeFinis [facility] Work Phone: 09-23-2016 09:37-0500 BP Systolic 116 mm[Hg] Harumi DeFinis [facility] Work Phone: 09-23-2016 09:37-0500 BSA (Body Surface Area) 2.46 m2 Harumi DeFinis [facility] Work Phone: 09-23-2016 09:37-0500 Pulse (Heart Rate) 64 /min Harumi DeFinis [facility] Work Phone: 09-23-2016 09:37-0500 Respiratory Rate 16 /min Harumi DeFinis [facility] Work Phone: 09-23-2016 09:37-0500 Weight 145.24 kg Harumi DeFinis [facility] Work Phone: 01-25-2016 08:34-0400 Heart rate 64 /min Harumi DeFinis [facility] Work Phone: 05-31-2015 13:23-0400 BP Diastolic 78 mm[Hg] Harumi DeFinis [facility] Work Phone: 05-31-2015 13:23-0400 BP Systolic 130 mm[Hg] Harumi DeFinis [facility] Work Phone: 05-18-2012 14:53-0400 Body Temperature 98.3 [degF] Harumi DeFinis [facility] Work Phone: 03-12-2012 16:54-0400 Heart rate 416 ms Harumi DeFinis [facility] Work Phone: 03-12-2012 16:30-0400 Height 168.91 cm Harumi DeFinis [facility] Work Phone: Encounters Encounter Date Encounter Type Care Provider Facility Start: 06-16-2025 End: 06-16-2025 Emergency department patient visit Javan Wells Facility:[facility] Start: 06-15-2025 End: 06-15-2025 ambulatory Javan Wells Facility:[facility] Start: 05-02-2025 Non-patient / Non-visit Dr. Corby CHANEL -[facility] Start: 05-02-2025 End: 05-02-[address] Javan Wells MD Work Phone: -[facility] Start: 05-02-2025 End: 05-02-2025 Patient encounter procedure Levy Demiter PA -[facility] Work Phone: Start: 05-02-2025 End: 05-02-2025 ambulatory Levy Larsiter Facility:[facility] Start: 03-28-2025 End: 03-28-2025 Patient encounter procedure Levy Demiter PA -[facility] Work Phone: Start: 03-28-2025 End: 03-28-[address] Javan Wells MD Work Phone: -[facility] Start: 09-13-2024 End: 09-13-2024 ambulatory Javan Wells Facility:[facility] Start: 11-26-2023 End: 11-26-2023 ambulatory [facility] Work Phone: Start: 11-26-2023 End: 11-26-2023 Patient encounter procedure [facility] Start: 04-29-2023 Non-patient / Non-visit Dr. Gamaliel Wells Work Phone: [facility] Work Phone: Start: 04-29-2023 Non-patient / Non-visit Dr. Gamaliel Wells Work Phone: [facility] Start: 04-28-2023 Non-patient / Non-visit Dr. Gamaliel Wells Work Phone: [facility] Work Phone: Start: 04-28-2023 End: 04-29-2023 Evaluation and management of inpatient [facility] Work Phone: Start: 04-28-2023 End: 04-29-[address] Javan Wells Work Phone: [facility] Work Phone: Start: 04-28-2023 End: 04-28-[address] Javan Wells Work Phone: [facility] Work Phone: Start: 04-28-2023 End: 04-28-2023 Patient encounter procedure [facility] Start: 06-25-2022 End: 06-25-2022 ambulatory [facility] Work Phone: Start: 06-25-2022 End: 06-25-2022 Patient encounter procedure [facility] Start: 05-30-2022 End: 05-30-2022 Patient encounter procedure [facility] Start: 02-25-2022 End: 02-25-[address] Javan Wells Work Phone: [facility] Start: 01-02-2022 End: 01-02-[address] Javan Wells Work Phone: [facility] Start: 12-25-2021 End: 12-25-2021 [facility] Procedure Procedure Detail Performing Clinician Start: 04-29-2023 MRI of brain without contrast Dr. Javan Wells Work Phone: Start: 04-28-2023 CT angiography of he ad and neck Start: 03-26-2017 End: 03-26-2017 Electrocardiogram, complete Janneth Stringer PA-C Work Phone: Start: 03-26-2017 End: 03-26-2017 Follow Up Appt 6 months Janneth montiel PA-C Work Phone: Start: 03-26-2017 End: 03-26-2017 PFM Janneth Landin PA-C Work Phone: Start: 09-23-2016 End: 09-23-2016 Dietary management education, guidance, and counseling Terry Osei Start: 09-23-2016 End: 09-23-2016 Follow Up Appt 6 months Javan Avelar MD Start: 09-23-2016 End: 09-23-2016 MMM Javan Avelar MD Start: 07-23-2016 End: 03-18-2017 *Hepatic Function Panel Javan Avelar MD Start: 07-23-2016 End: 03-18-2017 Lipid panel [AGGREGATE] Javan Avelar MD Start: 01-22-2016 End: 02-06-2016 *Hepatic Function Panel Javan Avelar MD Start: 01-22-2016 End: 01-24-2016 Lipid panel [AGGREGATE] Javan Avelar MD Start: 10-20-2015 End: 10-20-2015 *Hepatic Function Panel Janneth montiel PA-C Work Phone: Start: 10-20-2015 End: 10-20-2015 Lipid panel [AGGREGATE] Janneth montiel PA-C Work Phone: Start: 05-31-2015 End: 10-24-2015 *Hepatic Function Panel Javan Avelar MD Start: 05-31-2015 End: 06-01-2015 Documentation of current medications Javan Avelar MD Start: 05-31-2015 End: 05-31-2015 Follow Up Appt 6 months Javan Avelar MD Start: 05-31-2015 End: 10-24-2015 Lipid panel [AGGREGATE] Javan Avelar MD Start: 05-31-2015 End: 05-31-2015 MMM Javan Avelar MD Start: 05-03-2015 End: 05-30-2015 *Hepatic Function Panel Janneth montiel PA-C Work Phone: Start: 05-03-2015 End: 05-30-2015 Lipid panel [AGGREGATE] Janneth montiel PA-C Work Phone: Start: 11-04-2014 End: 11-05-2014 Documentation of current medications Janneth Landin PA-C Work Phone: Start: 11-04-2014 End: 11-04-2014 Follow Up Appt 6 months Janneth montiel PA-C Work Phone: Start: 11-04-2014 End: 11-04-2014 Lipid panel [AGGREGATE] Janneth montiel PA-C Work Phone: Start: 11-04-2014 End: 11-05-2014 Pedal pulse taking Janneth Landin PA-C Work Phone: Start: 11-04-2014 End: 11-04-2014 PFM Janneth Landin PA-C Work Phone: Start: 10-31-2014 End: 10-31-2014 *Hepatic Function Panel Javan Avelar MD Start: 10-31-2014 End: 10-31-2014 Lipid panel [AGGREGATE] Javan Avelar MD Start: 05-02-2014 End: 05-09-2014 *Hepatic Function Panel Javan Avelar MD Start: 05-02-2014 End: 05-02-2014 Follow Up Appt 6 months Javan Avelar MD Start: 05-02-2014 End: 05-09-2014 Lipid panel [AGGREGATE] Javan Avelar MD Start: 05-02-2014 End: 05-02-2014 MMM Javan Avelar MD Start: 10-15-2013 End: 10-15-2013 Follow Up Appt 6 months Janneth montiel PA-C Work Phone: Start: 10-15-2013 End: 10-15-2013 PFM Janneth Landin PA-C Work Phone: Start: 04-18-2013 End: 05-02-2014 *Hepatic Function Panel Janneth montiel PA-C Work Phone: Start: 04-18-2013 End: 05-02-2014 Lipid panel [AGGREGATE] Janneth montiel PA-C Work Phone: Start: 04-07-2013 End: 04-07-2013 Follow Up Appt 6 months Javan Avelar MD Start: 04-07-2013 End: 04-07-2013 MMM Javan Avelar MD Start: 10-16-2012 End: 11-13-2012 *Hepatic Function Panel Javan Avelar MD Start: 10-16-2012 End: 11-13-2012 Lipid panel [AGGREGATE] Javan Avelar MD Start: 09-24-2012 End: 09-29-2013 Follow Up Appt 6 months Javan Avelar MD Start: 09-24-2012 End: 09-29-2013 Nuclear stress test -exercise Javan maldonado MD Start: 09-24-2012 End: 09-29-2013 PFM Javan Avelar MD Start: 06-18-2012 End: 07-24-2012 *Hepatic Function Panel Javan Avelar MD Start: 06-18-2012 End: 06-18-2012 Follow Up Appt 3 months Javan Avelar MD Start: 06-18-2012 End: 07-24-2012 Lipid panel [AGGREGATE] Javan Avelar MD Start: 05-04-2012 End: 07-24-2012 *Hepatic Function Panel Javan Avelar MD Start: 05-04-2012 End: 07-24-2012 Lipid panel [AGGREGATE] Javan Avelar MD Start: 04-24-2012 End: 07-24-2012 *BMP Javan Avelar MD Start: 04-15-2012 End: 09-29-2013 Ct angio hrt w/3d image Javan Avelar MD Start: 04-03-2012 End: 09-29-2013 *BMP Javan Avelar MD Start: 04-03-2012 End: 09-29-2013 *CBC with Differential Javan Avelar MD Start: 04-03-2012 End: 09-29-2013 aPTT Javan Avelar MD Start: 04-03-2012 End: 09-29-2013 CBC W Auto Differential panel - Blood Javan Avelar MD Start: 04-03-2012 End: 09-29-2013 Chest x-ray Javan Avelar MD Start: 04-03-2012 End: 09-29-2013 Coagulation factor induced.INR assay in platelet poor plasma Javan Avelar MD Start: 04-03-2012 End: 09-29-2013 Left Heart Cath Javan Avelar MD Start: 03-23-2012 End: 09-29-2013 Left Heart Cath Javan Avelar MD Start: 03-12-2012 End: 03-23-2012 *Hepatic Function Panel Javan Avelar MD Start: 03-12-2012 End: 09-29-2013 Chest x-ray Javan Avelar MD Start: 03-12-2012 End: 03-23-2012 Coagulation factor induced.INR assay in platelet poor plasma Javan Avelar MD Start: 03-12-2012 End: 09-29-2013 Echocardiography Javan Avelar MD Start: 03-12-2012 End: 03-13-2012 Follow Up Appt 3 months Javan Avelar MD Start: 03-12-2012 End: 03-23-2012 Lipid panel [AGGREGATE] Javan Avelar MD Plan of Treatment Date Care Activity Detail Author Start: 04-29-2023 Patient discharge [facility] Start: 04-28-2023 End: 04-29-2023 [facility] Start: 04-28-2023 Following clinical pathway protocol [facility] Start: 04-28-2023 Cardiac monitoring [facility] Start: 04-28-2023 Catheterization of vein [facility] Start: 04-28-2023 Continuous pulse oximetry [facility] Start: 04-28-2023 Elevation of head of bed [facility] Start: 04-28-2023 Exercises [facility] Start: 04-28-2023 Implementation of planned interventions [facility] Start: 04-28-2023 Insertion of catheter into peripheral vein [facility] Start: 04-28-2023 Measuring intake and output [facility] Start: 04-28-2023 Notification of physician [facility] Start: 04-28-2023 Oxygen therapy [facility] Start: 04-28-2023 Patient referral to dietitian [facility] Start: 04-28-2023 Providing care according to standard [facility] Start: 04-28-2023 Provision of activity privileges [facility] Start: 04-28-2023 Referral to occupational therapist [facility] Start: 04-28-2023 Referral to service [facility] Start: 04-28-2023 Tobacco use cessation education [facility] Start: 04-28-2023 Vital signs measurements [facility] Start: 04-28-2023 Verification routine [facility] Start: 04-28-2023 Admission procedure [facility] Start: 11-05-2017 End: 11-05-2017 Appointment Appointment [facility] Work Phone: Start: 03-26-2017 End: 03-26-2017 Appointment Appointment [facility] Work Phone: Start: 03-26-2017 End: 03-26-2017 Electrocardiogram, complete EKG (In office) [facility] Work Phone: Start: 03-26-2017 End: 03-26-2017 Follow Up Appt 6 months Follow Up Appt 6 months [facility] Work Phone: Start: 03-26-2017 End: 03-26-2017 PFM PFM [facility] Work Phone: Start: 09-23-2016 End: 09-23-2016 *Hepatic Function Panel *Hepatic Function Panel [facility] Work Phone: Start: 09-23-2016 End: 09-23-2016 Follow Up Appt 6 months Follow Up Appt 6 months [facility] Work Phone: Start: 09-23-2016 End: 09-23-2016 Lipid 1996 panel *Lipid Profile CC PCP [facility] Work Phone: Start: 09-23-2016 End: 09-23-2016 MMM MMM [facility] Work Phone: Start: 07-23-2016 End: 03-18-2017 *Hepatic Function Panel *Hepatic Function Panel [facility] Work Phone: Start: 07-23-2016 End: 03-18-2017 Lipid panel [AGGREGATE] *Lipid Profile CC PCP [facility] Work Phone: Start: 01-22-2016 End: 01-22-2016 *Hepatic Function Panel *Hepatic Function Panel [facility] Work Phone: Start: 01-22-2016 End: 01-22-2016 Lipid panel [AGGREGATE] *Lipid Profile CC PCP [facility] Work Phone: Start: 11-30-2015 End: 10-20-2015 *Hepatic Function Panel *Hepatic Function Panel [facility] Work Phone: Start: 11-30-2015 End: 10-20-2015 Lipid panel [AGGREGATE] *Lipid Profile CC PCP [facility] Work Phone: Start: 05-31-2015 End: 10-24-2015 *Hepatic Function Panel *Hepatic Function Panel [facility] Work Phone: Start: 05-31-2015 End: 05-31-2015 Follow Up Appt 6 months Follow Up Appt 6 months [facility] Work Phone: Start: 05-31-2015 End: 10-24-2015 Lipid panel [AGGREGATE] *Lipid Profile CC PCP [facility] Work Phone: Start: 05-31-2015 End: 05-31-2015 MMM MMM [facility] Work Phone: Start: 05-03-2015 End: 05-30-2015 *Hepatic Function Panel *Hepatic Function Panel [facility] Work Phone: Start: 05-03-2015 End: 05-30-2015 Lipid panel [AGGREGATE] *Lipid Profile CC PCP [facility] Work Phone: Start: 11-07-2014 End: 10-31-2014 *Hepatic Function Panel *Hepatic Function Panel [facility] Work Phone: Start: 11-07-2014 End: 10-31-2014 Lipid panel [AGGREGATE] *Lipid Profile CC PCP [facility] Work Phone: Start: 11-04-2014 End: 11-04-2014 Electrocardiogram, complete EKG (In office) [facility] Work Phone: Start: 11-04-2014 End: 11-04-2014 Follow Up Appt 6 months Follow Up Appt 6 months [facility] Work Phone: Start: 11-04-2014 End: 11-04-2014 PFM PFM [facility] Work Phone: Start: 05-02-2014 End: 05-09-2014 *Hepatic Function Panel *Hepatic Function Panel [facility] Work Phone: Start: 05-02-2014 End: 05-02-2014 Follow Up Appt 6 months Follow Up Appt 6 months [facility] Work Phone: Start: 05-02-2014 End: 05-09-2014 Lipid panel [AGGREGATE] *Lipid Profile CC PCP [facility] Work Phone: Start: 05-02-2014 End: 05-02-2014 MMM MMM [facility] Work Phone: Start: 10-15-2013 End: 10-15-2013 Follow Up Appt 6 months Follow Up Appt 6 months [facility] Work Phone: Start: 10-15-2013 End: 10-15-2013 PFM PFM [facility] Work Phone: Start: 04-18-2013 End: 05-02-2014 *Hepatic Function Panel *Hepatic Function Panel [facility] Work Phone: Start: 04-18-2013 End: 05-02-2014 Lipid panel [AGGREGATE] *Lipid Profile [facility] Work Phone: Start: 04-07-2013 End: 04-07-2013 Follow Up Appt 6 months Follow Up Appt 6 months [facility] Work Phone: Start: 04-07-2013 End: 04-07-2013 MMM MMM [facility] Work Phone: Start: 10-16-2012 End: 11-13-2012 *Hepatic Function Panel *Hepatic Function Panel [facility] Work Phone: Start: 10-16-2012 End: 11-13-2012 Lipid panel [AGGREGATE] *Lipid Profile [facility] Work Phone: Start: 09-24-2012 End: 09-29-2013 Follow Up Appt 6 months Follow Up Appt 6 months [facility] Work Phone: Start: 09-24-2012 End: 10-05-2012 Nuclear stress test -exercise Nuclear stress test -exercise [facility] Work Phone: Start: 09-24-2012 End: 09-29-2013 PFM PFM [facility] Work Phone: Start: 06-18-2012 End: 07-24-2012 *Hepatic Function Panel *Hepatic Function Panel [facility] Work Phone: Start: 06-18-2012 End: 06-18-2012 Follow Up Appt 3 months Follow Up Appt 3 months [facility] Work Phone: Start: 06-18-2012 End: 07-24-2012 Lipid panel [AGGREGATE] *Lipid Profile [facility] Work Phone: Start: 05-04-2012 End: 07-24-2012 *Hepatic Function Panel *Hepatic Function Panel [facility] Work Phone: Start: 05-04-2012 End: 07-24-2012 Lipid panel [AGGREGATE] *Lipid Profile [facility] Work Phone: Start: 04-24-2012 End: 07-24-2012 *BMP *BMP [facility] Work Phone: Start: 04-15-2012 End: 04-15-2012 Ct angio hrt w/3d image CTA [facility] Work Phone: Start: 04-03-2012 End: 09-29-2013 *BMP *BMP [facility] Work Phone: Start: 04-03-2012 End: 09-29-2013 *CBC with Differential *CBC with Differential [facility] Work Phone: Start: 04-03-2012 End: 09-29-2013 aPTT *PTT-Partial Thromboplastin Time [facility] Work Phone: Start: 04-03-2012 End: 09-29-2013 aPTT Coag time (PPP) *PTT-Partial Thromboplastin Time [facility] Work Phone: Start: 04-03-2012 End: 09-29-2013 CBC W Auto Differential panel - Blood *CBC without Diff [facility] Work Phone: Start: 04-03-2012 End: 09-29-2013 Chest x-ray X-Ray, Chest, PA & Lateral [facility] Work Phone: Start: 04-03-2012 End: 09-29-2013 Coagulation factor induced.INR assay in platelet poor plasma [facility] Work Phone: Start: 04-03-2012 End: 04-03-2012 Left Heart Cath Left Heart Cath [facility] Work Phone: Start: 03-23-2012 End: 04-01-2012 Left Heart Cath Left Heart Cath [facility] Work Phone: Start: 03-12-2012 End: 03-23-2012 *Hepatic Function Panel *Hepatic Function Panel [facility] Work Phone: Start: 03-12-2012 End: 09-29-2013 Chest x-ray X-Ray, Chest, PA & Lateral [facility] Work Phone: Start: 03-12-2012 End: 03-13-2012 Echocardiography Echocardiogram (complete) [facility] Work Phone: Start: 03-12-2012 End: 03-13-2012 Electrocardiogram, complete EKG (In office) [facility] Work Phone: Start: 03-12-2012 End: 03-13-2012 Follow Up Appt 3 months Follow Up Appt 3 months [facility] Work Phone: Start: 03-12-2012 End: 03-23-2012 Lipid panel [AGGREGATE] *Lipid Profile [facility] Work Phone: Patient Education [facility] Work Phone: [facility] Payers Date Payer Category Payer Self-pay [id number] 2021 Unknown [id number] 2012 Unknown [id number] Medicare [id number] Unknown [id number] Unknown [id number] Unknown [id number] [id number] Unknown [id number] [id number] [id number] Unknown [id number] Unknown [id number] Social History Date Type Detail Facility Start: 07-05-2021 End: 05-06-2023 Tobacco smoking status MIIS Unknown if ever smoked [facility] Start: 06-08-2013 None [facility] Start: 06-08-2013 Non-smoker [facility] Start: 1950 Sex Assigned At Male [facility] Start: 05-06-2023 Tobacco smoking stat us MIIS Never smoked tobacco (finding) [facility] Sex Male [facility] Goals Date Patient Goal Desired Activity /State Functional Status Date Assessment Result Facility 04-29-2023 Functional status Ambulates [facility] Work Phone: Mental Status Date Assessment Result Facility 04-29-2023 Cognitive function Voice/Name [facility] Work Phone: 04-28-2023 Cognitive function Appropriate;Christiano patrick [facility] Work Phone: Evaluation note 03-28-2025 Note Date & Type Note Facility 03-28-2025 Evaluation note Diagnosis Onset Date Resolution Murmur acute March 28, 025 8:28am Atherosclerotic heart disease of [place] coronary artery without angina pectoris chronic March 28 8:28am Diabetes mellitus chronic March 28, 2025 8:28am Essential (primary) hypertension chronic March 28 8:28am Pure hypercholesterolemia chronic March 28, 2025 8:28am [facility] Work Phone: Discharge summary 04-29-2023 Note Date & Type Note Facility 04-29-2023 Discharge summary Note Date/Time April 29, 2023 1:08pm [facility] Medical Records Department [address] [place] [address] Instructions for Home/Discharge Instructions 04/29/23 1308 MR#: [id number] Acct: [id number] Name: MARIYA ORTA Rep #:[id number] : 1950 72 From: Mo vinson MD PCP: Dr. Javan Wells MD Status:ADM I NO Discharge Instructions Diet Discharge Diet: Carb Control Diet Activity Discharge Activity: Return to Normal Activity Dressing / Incision Call your doctor if you observe: Fever of 101 or Higher, Shortness of breath, Dizziness, Fainting spells, Swelling in the ankles, Chest pain and Increased palpitations (irregular heartbeat) Follow Up Care Test Results: Test results from this visit will be discussed in further detail at your follow-up appointment, if applicable. Discharge Plan Admission Admit Date/Time: 04/28/23 19:14 Attending Provider: Mo Foley Primary Care Provider: Javan Wells Consulting Providers: El James Discharge Orders/Prescriptions Prescriptions: Continued Janumet 50-1,000 mg tablet 1 tab PO BID glimepiride 4 mg tablet 4 mg PO .daily @ dinner lisinopril 10 mg tablet 20 mg PO DAILY aspirin 81 MG tablet,chewable 81 mg PO DAILY@0800 Patient Comments: ANTIPLATELET multivitamin with folic acid 1 TABLET tablet 1 tab PO DAILY Patient Comments: MULTI VITAMIN isosorbide mononitrate 30 mg tablet extended release 24 hr 30 mg PO DAILY Qty: 90 4RF metoprolol tartrate 25 mg tablet 25 mg PO BID Qty: 180 3RF empagliflozin 25 mg tablet 25 mg PO QDAY Qty: 90 3RF atorvastatin 40 mg tablet 40 mg PO QDAY Qty: 90 3RF Referrals / Follow Up: Javan Wells MD [Primary Care Provider] - In 1 Week Disposition Disposition (needs filled in before D/C Order can be placed): Home, Self Care 04/29/23 1313<Electronically signed by Mo Foley MD>Mo Foley MD CC: Dr. El James MD; Dr. Javan Wells MD ~ Signed [facility] Work Phone: History and physical note 04-29-2023 Note Date & Type Note Facility 04-29-2023 History and physi hira note Note Date/Time April 28, 2023 7:27pm [facility] Medical Records Department [address] [place] [address] H&P Exam - Hospitalist 04/28/231925 MR#: [id number] Acct: [id number] Name: MARIYA ORTA Rep #:[id number] : 1950 72 From: El James MD PCP: Dr. Javan Wells MD Status:ADM I NO Location: [place] [id number] HPI - General General Date of Admission: 04/28/23 Date of Service: 04/28/23 Chief Complaint: Double vision HPI Narrative MARIYA ORTA, is a 72 M with a significant history of hypertension, hyperlipidemia, diabetes mellitus who presents emergency department with 4-day history of double vision. Of note his symptoms started with blurred vision. Later on his symptoms progressed to double vision. His symptoms have been persistent. He noticed that when he is covered his right eye which was getting especially closed he could see better. Also he reports of pain in his right eye. Emergency room doctor discussed the case with environmental monitoring specialist who will follow up on consultation. [facility] Medical History (Updated 04/29/23 @ 06:[address] 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 CAD (coronary artery disease) Diabetes mellitus Essential (primary) hypertension Hyperlipidemia Hypertension Intermittent claudication Non-smoker Other m[facility] (current) drug therapy Pure hypercholesterolemia Home Medications aspirin 81 mg chewable tablet 81 mg PO DAILY@0800 06/08/13 [History Last Taken 06/07/13 08:00] multivitamin with folic acid 400 mcg tablet 1 tab PO DAILY 06/08/13 [History Last Taken 06/07/13 08:00] sitagliptin phosphate 50 mg-metformin 1,000 mg tablet (Janumet) 1 tab PO BID 07/02/18 [History Last Taken Unknown] glimepiride 4 mg tablet 4 mg PO QHS 01/05/21 [History Last Taken Unknown] lisinopril 10 mg tablet 20 mg PO DAILY 07/01/22 [History Last Taken Unknown] isosorbide mononitrate 30 mg tablet,extended release 24 hr 30 mg PO DAILY #90 tabs 08/06/22 [Rx Last Taken Unknown] metoprolol tartrate 25 mg tablet 25 mg PO BID #180 tabs 08/13/22 [Rx Last Taken Unknown] empagliflozin 25 mg tablet 25 mg PO QDAY #90 tabs 10/04/22 [Rx Last Taken Unknown] atorvastatin 40 mg tablet 40 mg PO QDAY #90 tabs 01/14/23 [Rx Last Taken Unknown] Allergy/AdvReac Type Severity Reaction Status Date / Time Penicillins Allergy Unknown Verified 04/28/23 15:36 Family History Mother CAD (coronary artery disease) cabg Diabetes Brother pacemaker Father Diabetes Surgical History History of cardiac cath (~03/2012) Social History Smoking Status: Never smoker alcohol intake: never substance use type: does not use caffeine: Yes Type: coffee Number of servings: 12 what type of physical activity do you participate in: none seatbelt use: never do you feel safe at home: Yes ROS ROS Narrative Pertinent positives and pertinent negatives as noted in HPI. All other systems were reviewed and are negative Vital Signs Vital Signs Vital Signs: 04/28/23 15:33 04/28/23 17:32 04/28/23 19:10 Temperature 96.6 F L Temperature Source Temporal Pulse Rate 60 52 L 56 L Respiratory Rate 20 H 19 H 19 H Blood Pressure 188/82 H 132/60 H 122/108 H Blood Pressure Mean 117 84 112 Pulse Ox 98 Oxygen Delivery Method Room Air 04/28/23 19:22 Temperature 97.2 F L Temperature Source Temporal Pulse Rate 54 L Respiratory Rate 26 H Blood Pressure 163/80 H Blood Pressure Mean 107 Pulse Ox 96 Oxygen Delivery Method Room Air Physical Exam Narrative Physical exam: General: Well-nourished, well-developed. Head: Normocephalic, atraumatic, no tenderness Eyes: Vision is grossly normal. EOMI ENT, no trauma, moist mucous membranes, no rhinorrhea Neck: Nontender, No thyromegaly. CVS: Regular rate and rhythm. S1-S2 present. No murmur, gallop or rub. Respiratory : clear to auscultation bilaterally, chest wall nontender Abdomen: Soft, nontender, nondistended, normal bowel sounds, no masses : Deferred Back: Nontender, no CVA tenderness, no midline spinal tenderness, deformities, step-offs Extremities: Nontender full range of motion, no trauma Skin: Normal color, no trauma, abrasions Neuro: Alert, oriented, right eyelid droop and right facial droop. [id number] normal [id number] test normal. Strength 5 out of 5 throughout. Not hyperreflexia in bilateral elbow reflex and knee-jerk reflex. Psychiatry: Normal mood. Normal affect. Not depressed. Not anxious. Results Lab / Micro Data Attestation: I reviewed the patient's lab results. 04/29/23 04:51 04/29/23 04:51 Labs: Laboratory Results - last 24 hr 04/28/23 16:24: WBC 10.7, RBC 5.33, Hgb 15.8, Hct 49.3, MCV 92.5, MCH 29.6, MCHC32.0, RDW Std Deviation 47.0 H, RDW Coeff of Naldo 13.8, Plt Count 192, MPV 10.4, Immature Gran % (Auto) 0.700, Neut % (Auto) 61.9, Lymph % (Auto) 20.8, [place] % (Auto) 9.1, Eos % (Auto) 6.7 H, Baso % (Auto) 0.8, Absolute Neuts (auto) 6.6, Absolute Lymphs (auto) 2.23, Nucleated RBC % 0, ESR 6, PT 13.3, INR 1.0, APTT 26.7, Sodium 139, Potassium 3.9, Chloride 103, Carbon Dioxide 27.0, Anion Gap 9,BUN 17, Creatinine 1.15, Est GFR (MDRD) Af Amer 81, Est GFR (MDRD) Non-Af 67, BUN/Creatinine Ratio 14.8, Glucose 122 H, Calcium 9.1, C-React Prot Ext Range 5.69 H Radiology Impression Head/Neck CTA 04/28/23 16:22 IMPRESSION: No hemodynamically significant stenosis. 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 There was no bleed. Upon my personal head CT image review: I agree with radiologist interpretation Lipid profile and A1c ordered. Physical therapy, occupational therapy and to work with patient. N.p.o. until bedside swallow eval. Daily aspirin. High intensity statin. Patient is outside window of permissive hypertension. Echocardiogram ordered. Ophthalmology consulted Hypertension Blood pressure is not within goal Home blood pressure medication continued. As needed hydralazine ordered. Trend blood pressure and adjust blood pressure medications. Diabetes mellitus Blood glucose on presentation was stable. Jardiance and glimepiride continued. Janumet held. Monitor Accu-Cheks. With continuation of glimepiride Correction scale insulin ordered. Time spent in the patient's overall evaluation,decision-making process, review of diagnostic data, adjustment of management, discussion with other providers, nursing nursing and ancillary staff involved in patient's care documentation, 70 minutes. Charges/Coding Visit Charges Inpatient E&M: 52184 Init Hosp L3 04/29/23 0659 <Electronically signed by El James MD> Cosigner Signature (if applicable): CC: Dr. El James MD; Dr. Javan Wells MD~ Signed [facility] Work Phone: Discharge summary 04-29-2023 Note Date & Type Note Facility 04-29-2023 Discharge summary Note Date/Time April 28, 2023 4:59pm [facility] Medical Records Department [address] [place] [address] Emergency Department Summary 04/28/23 MR#: [id number] Acct: [id number] Name: MARIYA ORTA Rep #:[id number] : 1950 72 From: Padma Enamorado MD PCP: Dr. Javan Wells MD Status:ADM I NO Location: [address] History of Present Illness Chief Complaint: Neuro S/Sx Detail of Chief Complaint: Vision changes Informant: patient Narrative Narrative: Patient presents from PCPs office due to concern about vision changes, facial droop, right eye drooping. Patient states that last April 24, he noted double vision. He states initially there were 2 objects located [id number] when he would have both eyes open. When he closes 1 eye he has normal vision without any change. He states that since , the object hasbecome further apart and one object is now slightly higher than the other. Patient saw his primary care physician today who noted a slight facial droop on the right and drooping of the right upper eyelid. Due to delay on getting scanspreapproved he was sent to the emergency room. Patient does have history of prior cataract surgery on his eyes with Dr. Cordero. 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 Pure hypercholesterolemia Home Medications aspirin 81 mg chewable tablet 81 mg PO DAILY@0800 06/08/13 [History Last Taken 06/07/13 08:00] multivitamin with folic acid 400 mcg tablet 1 tab PO DAILY 06/08/13 [History Last Taken 06/07/13 08:00] sitagliptin phosphate 50 mg-metformin 1,000 mg tablet (Janumet) 1 tab PO BID 07/02/18 [History Last Taken Unknown] glimepiride 4 mg tablet 4 mg PO DAILY 01/05/21 [History Last Taken Unknown] lisinopril 10 mg tablet 20 mg PO DAILY 07/01/22 [History Last Taken Unknown] isosorbide mononitrate 30 mg tablet,extended release 24 hr 30 mg PO DAILY #90 tabs 08/06/22 [Rx Last Taken Unknown] metoprolol tartrate 25 mg tablet 25 mg PO BID #180 tabs 08/13/22 [Rx Last Taken Unknown] empagliflozin 25 mg tablet 25 mg PO QDAY #90 tabs 10/04/22 [Rx Last Taken Unknown] atorvastatin 40 mg tablet 40 mg PO QDAY #90 tabs 01/14/23 [Rx Last Taken Unknown] Allergy/AdvReac Type Severity Reaction Status Date / Time Penicillins Allergy Unknown Verified 04/28/23 15:36 Family History Mother CAD (coronary artery disease) cabg Diabetes Brother pacemaker Father Diabetes Surgical History History of cardiac cath (~03/2012) Social History Smoking Status: Never smoker alcohol intake: never substance use type: does not use caffeine: Yes Type: coffee Number of servings: 12 what type of physical activity do you participate in: none seatbelt use: never do you feel safe at home: Yes ROS ROS ED Constitutional Constitutional ED: Denies chills or fever(s) Eyes Eyes: Reports change in vision and diplopia; Denies discharge from eye(s) ENT ENT ED: Denies discharge from eye(s), rhinorrhea or sore throat Cardiovascular Cardiovascular: Denies chest pain or palpitations Respiratory/Chest Respiratory/Chest: Denies cough or dyspnea Gastrointestinal Gastrointestinal: Denies abdominal pain, nausea or vomiting Genitourinary Genitourinary ED: Denies dysuria Musculoskeletal Musculoskeletal: Denies back pain or extremity pain Integumentary Denies Abrasions or rash Neurologic Neurologic: Denies headache(s) or weakness Psychiatric Psychiatric: Denies anxiety or depression Allergic/Immunologic Allergic/Immunologic ED: Denies lip swelling or urticaria EXAM Physical Exam Const Vital Signs: 04/28/23 15:33 04/28/23 17:32 Temperature 96.6 F L Temperature Source Temporal Pulse Rate 60 52 L Respiratory Rate 20 H 19 H Blood Pressure 188/82 H 132/60 H Blood Pressure Mean 117 84 Pulse Ox 98 Oxygen Delivery Method Room Air Positive well nourished and well developed General Appearance ED: well developed HEENT Reports normocephalic and head/scalp atraumatic Eyes PERRL Eyes Narrative: When looking at the patient, his left eye focuses on my face appropriately but his right eye is turned out laterally. However, when I have the patient follow my finger with his eyes he had does have full range of motion of his right eye. Slight right eyelid droop was noted. Neck supple Chest Wall inspection of chest normal and palpation of chest normal Resp normal respiratory effort and clear to auscultation bilaterally Cardio regular rate and regular rhythm GI normal to inspection, nondistended, normoactive bowel sounds Palpation: soft Back/Spine no CVA tenderness Extremity normal to inspection Neuro oriented x3 and no sensory deficits noted Sensorium / Orientation: alert Motor Exam: strength 5/5 throughout Psych mental status grossly normal Skin no rashes or lesions noted MDM MDM MDM Narrative Medical decision making narrative: I spoke with Dr. Luong, on-call for ophthalmology. He recommended CTA of thehead and neck to evaluate for [employer] abnormality pressing on the 3rd nerve. He also recommended sed rate and CRP as giant cell arteritis can sometimes cause the symptoms. Lab work was obtained along with CTA of the head and neck. History & Record Review Discussion w/independent historian: Patient and Other Lab Data Attestation: I reviewed the patient's lab results. Labs: Laboratory Results - last 24 hr 04/28/23 16:24 WBC 10.7 RBC 5.33 Hgb 15.8 Hct 49.3 MCV 92.5 MCH 29.6 MCHC 32.0 RDW Std Deviation 47.0 H RDW Coeff of Naldo 13.8 Plt Count 192 MPV 10.4 Immature Gran % (Auto) 0.700 Neut % (Auto) 61.9 Lymph % (Auto) 20.8 [place] % (Auto) 9.1 Eos % (Auto) 6.7 H Baso % (Auto) 0.8 Absolute Neuts (auto) 6.6 Absolute Lymphs (auto) 2.23 Nucleated RBC % 0 ESR 6 PT 13.3 INR 1.0 APTT 26.7 Sodium 139 Potassium 3.9 Chloride 103 Carbon Dioxide 27.0 Anion Gap 9 BUN 17 Creatinine 1.15 Est GFR (MDRD) Af Amer 81 Est GFR (MDRD) Non-Af 67 BUN/Creatinine Ratio 14.8 Glucose 122 H Calcium 9.1 C-React Prot Ext Range 5.69 H Radiography Diagnostic Testing: Clinical Impression(s) from Imaging Studies Head/Neck CTA 04/28/23 16:22 IMPRESSION: No hemodynamically significant stenosis. Electronically Signed: Issa Rider DO at 18:14 EDT , Treatment and Re-Evaluation :: CBC is unremarkable. Chemistry studies are normal other than a glucose of 122. CRP is 5.69 and sed rate is normal at 6. Coags are normal. EKG is sinus bradycardia 56 bpm. No acute ischemia. CTA of the head and neck reveals no acute abnormalities. Per my discussion with Dr. Luong, if her initial work-up was negative patient still would benefit from admission for further stroke work-up including MRI. Dr. Luong is available to come see the patient if needed in consult. I will speak with the hospitalist. 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 Prescriptions: No Action Janumet 50-1,000 mg tablet 1 tab PO BID glimepiride 4 mg tablet 4 mg PO DAILY lisinopril 10 mg tablet 20 mg PO DAILY aspirin 81 MG tablet,chewable 81 mg PO DAILY@0800 Patient Comments: ANTIPLATELET multivitamin with folic acid 1 TABLET tablet 1 tab PO DAILY Patient Comments: MULTI VITAMIN isosorbide mononitrate 30 mg tablet extended release 24 hr 30 mg PO DAILY Qty: 90 4RF metoprolol tartrate 25 mg tablet 25 mg PO BID Qty: 180 3RF empagliflozin 25 mg tablet 25 mg PO QDAY Qty: 90 3RF atorvastatin 40 mg tablet 40 mg PO QDAY Qty: 90 3RF Primary Care Provider: Javan Wells: Javan Wells MD [Primary Care Provider] - Disposition Disposition: Acute Care Hospital [facility] What to do if you have Problems For any increased pain, shortness of breath, bleeding, nausea or vomiting, chestpain, or any unexpected problems, contact your Primary Care Provider. Call [facility] ([phone]) or report to the closest Emergency Room. Call 911 if necessary. 04/28/232327 <Electronically signed by Padma Enamorado MD> Cosigner Signature (if applicable): CC: Dr. Javan Wells MD ~ Signed [facility] Work Phone: Discharge summary Note Date & Type Note Facility Discharge summary Note Date/Time April 29, 2023 2:23pm [facility] Medical Records Department [address] [place] [address] Discharge Summary 04/29/23 1419 MR#: [id number] Acct: [id number] Name: MARIYA ORTA Rep #:[id number] : 1950 72 From: Mo vinson MD PCP: Dr. Javan Wells MD Status:ADM I NO Location: [place] [address] Providers Date of Admission: 04/28/23 Primary Care Physician: Dr. 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 Code(s): H49.00 - Third [oculomotor] nerve palsy, unspecified eye Qualifiers: Laterality: right Qualified Code(s): H49.01 - Third [oculomotor] nerve palsy, right eye (2) Stroke-like symptoms: Status: Acute Code(s): R29.90 - Unspecified symptoms and signs involving the nervous system Medications at Discharge Home Medications aspirin 81 mg chewable tablet 81 mg PO DAILY@0800 06/08/13 multivitamin with folic acid 400 mcg tablet 1 tab PO DAILY 06/08/13 sitagliptin phosphate 50 mg-metformin 1,000 mg tablet (Janumet) 1 tab PO BID 07/02/18 glimepiride 4 mg tablet 4 mg PO .daily @ dinner 01/05/21 lisinopril 10 mg tablet 20 mg PO DAILY 07/01/22 isosorbide mononitrate 30 mg tablet,extended release 24 hr 30 mg PO DAILY #90 tabs 08/06/22 metoprolol tartrate 25 mg tablet 25 mg PO BID #180 tabs 08/13/22 empagliflozin 25 mg tablet 25 mg PO QDAY #90 tabs 10/04/22 atorvastatin 40 mg tablet 40 mg PO QDAY #90 tabs 01/14/23 Hospital Course Operations None Procedures None Summary of Care Provided Minutes Spent on Discharge: 32 Hospital Course: Per HPI: MARIAY ORTA, is a 72 M with a significant history of hypertension, hyperlipidemia, diabetes mellitus who presents emergency department with 4-day history of double vision. Of note his symptoms started with blurred vision. Later on his symptoms progressed to double vision. His symptoms have been persistent. He noticed that when he is covered his right eye which was getting especially closed he could see better. Also he reports of pain in his right eye. Emergency room doctor discussed the case with environmental monitoring specialist who will follow up on consultation. Hospital Course: 1. Right eye ptosis?72-year-old male presented to the hospital from his PCPs office secondary to right eye ptosis as well as blurry vision and some mild eye pain. He states that his blurry vision is little bit improved but he still has difficulty lifting his right eyelid. Denies any significant eye pain with movement. Initial concerns were for either cerebrovascular aneurysms or giant cell arteritis, CTA of the head and neck was unremarkable and ESR was normal with a slightly elevated CRP not significant for giant cell arteritis. He does not have a fever or chills or leukocytosis to indicate any periorbital cellulitis and there were not any skin changes on my exam. MRI was unremarkable for stroke or any type of lesion. With one of his environmental monitoring specialist partners who felt that he would be safe for discharge with close follow-up this week. I discussed the plan for discharge with him and he expressed understanding of the risks and benefits of going home and would like to go home today. 2. Hypertension, hyperlipidemia, type 2 diabetes are all chronic medical conditions which complicate his care. His home medications were continued where appropriate Physical Exam Narrative General: Alert, Oriented x3, Cooperative, No apparent distress HEENT: Atraumatic, PERRLA, EOMI, Normocephalic, right eye ptosis Oral: Moist Mucosa Neck: Supple, No JVD Lungs: Diminished, Normal air movement, No rhonchi, No wheeze, No rales Cardiovascular: Regular rate, Regular Rhythm, Normal S1, Normal S2, No murmurs Abdomen: Soft, Non Tender, Non-Distended, No Hepato-splenomegaly Extremities: No edema, Capillary Refill Less than 3 Seconds Skin: No rashes, No breakdown Musculoskeletal: No Tenderness to Palpation of Joints or Extremities Neurological: Motor Exam 5/5 strength throughout, Sensory exam intact to light touch and pain Psych/Mental Status: Normal Affect, Appropriate Weight / BMI Weight Weight: 309 lb 4.937 oz Body Mass Index (BMI) 49.9 ABG / Lab / Microbiology Data 04/29/23 04:51 04/29/23 04:51 Laboratory: Laboratory Results - last 24 hr 04/28/23 16:24: WBC 10.7, RBC 5.33, Hgb 15.8, Hct 49.3, MCV 92.5, MCH 29.6, MCHC 32.0, RDW Std Deviation 47.0 H, RDW Coeff of Naldo 13.8, Plt Count 192, MPV 10.4, Immature Gran % (Auto) 0.700, Neut % (Auto) 61.9, Lymph % (Auto) 20.8, [place] % (Auto) 9.1, Eos % (Auto) 6.7 H, Baso % (Auto) 0.8, Absolute Neuts (auto) 6.6, Absolute Lymphs (auto) 2.23, Nucleated RBC % 0, ESR 8, PT 13.3, INR 1.0, APTT 26.7, Sodium 139, Potassium 3.9, Chloride 103, Carbon Dioxide 27.0, Anion Gap 9, BUN 17, Creatinine 1.15, Est GFR (MDRD) Af Amer 81, Est GFR (MDRD) Non-Af 67, BUN/Creatinine Ratio 14.8, Glucose 122 H, Calcium 9.1, C-React Prot Ext Range 5.69 H 04/28/23 21:50: POC Glucose 110 H 04/29/23 04:51: WBC 8.8, RBC 5.16, Hgb 15.5, Hct 47.1, MCV 91.3, MCH 30.0, MCHC 32.9, RDW Std Deviation 46.9 H, RDW Coeff of Naldo 13.8, Plt Count 178, MPV 10.9, Immature Gran % (Auto) 0.600, Neut % (Auto) 61.0, Lymph % (Auto) 20.5, [place] % (Auto) 9.9, Eos % (Auto) 7.1 H, Baso % (Auto) 0.9, Absolute Neuts (auto) 5.4, Absolute Lymphs (auto) 1.81, Nucleated RBC % 0, Sodium 139, Potassium 4.2, Chloride 106, Carbon Dioxide 28.0, Anion Gap 5, BUN 14, Creatinine 0.85, Estim Creat Clear Calc 71.93, Est GFR (MDRD) Af Amer 114, Est GFR (MDRD) Non-Af 94, BUN/Creatinine Ratio 16.4, Glucose 138 H, Hemoglobin A1c 7.3 H, Calcium 8.8, Triglycerides 184, Cholesterol 148, LDL Cholesterol 71, VLDL Cholesterol 37, HDL Cholesterol 40 04/29/23 12:18: POC Glucose 144 H Radiography Diagnostic Testing: Radiology Impression Head/Neck CTA 04/28/23 16:22 IMPRESSION: No hemodynamically significant stenosis. Electronically Signed: Issa Rider DO at 18:14 EDT Reading Location ID and State: [facility] / [place] Tel [phone], Service support , Echocardiogram 04/28/23 20:58 Interpretation Summary Normal LV size. Left ventricular systolic function is normal. The estimated ejection fraction is 55 %. Moderate concentric left ventricular hypertrophy. Stage 2 diastolic dysfunction. Contrast injection was performed. Ordering Physician: El James Referring Physician: Javan Wells Performed By: Constance Bond RCS Brain MRI 04/29/23 20:58 IMPRESSION: No evidence for acute infarct. Mild chronic involutional and white matter changes. Electronically Signed: Arabella Del Valle MD at 11:19 EDT , D/C Instructions Discharge Diet: Carb Control Diet Call your doctor if you observe: Fever of 101 or Higher, Shortness of breath, Dizziness, Fainting spells, Swelling in the ankles, Chest pain and Increased palpitations (irregular heartbeat) Meaningful Use Info Meaningful Use Diagnoses (Choose all that apply): None applicable Discharge Plan Admission Admit Date/Time: 04/28/23 19:14 Attending Provider: Mo Foley Primary Care Provider: Javan Wells Consulting Providers: El James Discharge Orders/Prescriptions Prescriptions: Continued Janumet 50-1,000 mg tablet 1 tab PO BID glimepiride 4 mg tablet 4 mg PO .daily @ dinner lisinopril 10 mg tablet 20 mg PO DAILY aspirin 81 MG tablet,chewable 81 mg PO DAILY@0800 Patient Comments: ANTIPLATELET multivitamin with folic acid 1 TABLET tablet 1 tab PO DAILY Patient Comments: MULTI VITAMIN isosorbide mononitrate 30 mg tablet extended release 24 hr 30 mg PO DAILY Qty: 90 4RF metoprolol tartrate 25 mg tablet 25 mg PO BID Qty: 180 3RF empagliflozin 25 mg tablet 25 mg PO QDAY Qty: 90 3RF atorvastatin 40 mg tablet 40 mg PO QDAY Qty: 90 3RF Referrals / Follow Up: Javan Wells MD [Primary Care Provider] - In 1 Week Doron Luong MD [Med Staff - Active Staff] - (This week at [facility]) Disposition Disposition (needs filled in before D/C Order can be placed): Home, Self Care Charges/Coding Visit Charges Inpatient E&M: 07922 Disch Hosp >30min 04/29/23 1423 <Electronically signed by Mo Foley MD> Cosigner Signature (if applicable): CC: Dr. Mo Foley MD; Dr. 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 nerve palsy acut e Stroke-like symptoms acute [facility] Work Phone: Evaluation note Note Date & Type Note Facility Evaluation note Diagnosis Onset Date Resolution Murmur acute March 28 025 8:28am Atherosclerotic heart disease of [place] coronary artery without angina pectoris chronic March 28 8:28am Diabetes mellitus chronic March 28, 2025 8:28am Essential (primary) hypertension chronic March 28 8:28am Pure hypercholesterolemia chronic March 28, 2025 8:28am [facility] Work Phone: Reason for referral (narrative) Note Date & Type Note Facility Reason for referral (narrative) No reason for referral information available [facility] Work Phone: Chief Complaint and Reason for Visit Chief Complaint Admit Date 1 Y FU March 28, 2025 8: 28am MURMUR May 02, 2025 9:46am Reason for Visit Admit Date Murmur March 28, 2025 8: 28am Atherosclerotic heart diseas e [place] coronary artery without angina pectoris March 28, 2025 8:28am Diabetes mellitus March 28, 2025 8: 28am Essential (primary) hypertension March 28, 2025 8:28am Pure hypercholesterolemia March 28 025 8:28am Chief Complaint INT LABS Chief Complaint INT LABS 6 m fu Reason for Visit Atherosclerotic hear t disease of [place] coronary artery without angina pectoris Essential (primary) hypertension Pure hypercholesterolemia Chief Complaint E ORDER Chief Complaint STROKE LIKE SYMPTOMS Reason for Visit 3rd cranial nerve pa lsy Stroke-like symptoms Chief Complaint STROKE LIKE SYMPTOMS STROKE LIKE SYMPTOMS STROKE LIKE SYMPTOMS Reason for Visit 3rd cranial nerve pa lsy Stroke-like symptoms Chief Complaint Admit Date 1 Y FU March 28, 2025 8: 28am Family History No Family History Records Found Relationship Condition Age at Onset Recorded Date/T feliberto mother Coronary artery disease Unknown Diabetes mellitus Unknown brother Unknown father Diabetes mellitus Unknown Advance Directives No Advanced Directives Records Found Advance Directive Response Recorded Date/ Time Living Will No April 28, 2023 4:08pm Power of Process Controls Technician No April 4:08pm Advance Directive Response Recorded Date/ Time Living Will No April 28, 2023 9:02pm Power of Process Controls Technician No April 9:02pm Summary Purpose Additional Source Comments Goals (unrecognized section and content) Goals may be documented in a n alternate sectionGoals may be documented in an alternate sectionGoals may be documented in an alternate sectionGoals may be documented in an alternate sectionGoals may be documented in an alternate sectionGoals may be documented in an alternate sectionGoals may be documented in an alternate section Care Teams (unrecognized sec tion and content) Team Status: Active Member Role Status Dates Dr. Javan Wells MD Family Provider Active Dr. Javan Wells MD Primary Care Provider Active Team Status: Active Member Role Status Dates Dr. Javan Wells MD Primary Care Provider Active Dr. Barbie Bernardo MD Attending Provider Active Team Status: Active Member Role Status Dates Dr. Javan Wells MD Primary Care Provider Active Dr. Padma Enamorado MD Emergency Provider Active Dr. El James MD Admit Provider, Attending Pro vider Active Team Status: Active Member Role Status Dates Dr. Javan Wells MD Primary Care Provider Active Dr. Padma Enamorado MD Emergency Provider Active Dr. El James MD Admit Provider, Attending Provider, Other Provider Active Team Status: Active Member Role Status Dates Dr. Javan Wells MD Primary Care Provider Active Dr. Martín Butt MD Attending Provider Active Team Status: Active Member Role Status Dates Dr. Javan Wells MD Primary Care Provider Active Dr. Padma Enamorado MD Emergency Provider Active Dr. El James MD Admit Provider, Other Provide r Active Dr. Mo Foley MD Attending Provider, Other Provider Active Team Status: Inactive Member Role Status Dates Dr. Javna Wells MD Primary Care Provider Active Dr. Padma Enamorado MD Emergency Provider Active Dr. El James MD Admit Provider, Other Provide r Active Dr. Mo Foley MD Attending Provider Active Team Status: Inactive Member Role Status Dates Dr. Javan Wells MD Primary Care Provider Active Dr. Barbie Bernardo MD Attending Provider Active Team Status: Inactive Member Role Status Dates Dr. Javan Wells MD Primary Care Provider, Attending Provider Active Team Status: Active Member Role/Relationship Status Dates Dr. Javan Wells MD Family Provider Active Dr. Javan Wells MD Primary Care Provider Active Team Status: Inactive Member Role/Relationship Status Dates Dr. Javan Wells MD Primary Care Provider Active Start: March 28, 2025 End: March 28, 2025 Dr. Javan Wells MD Referring Provider Active Start: March 28, 2025 End: March 28, 2025 GAMALIEL Mccoy Attending Provider Active St art: March 28, 2025 End: March 28, 2025 Team Status: Active Member Role/Relationship Status Dates Dr. Javan Wells MD Primary care physician Active Team Status: Inactive Member Role/Relationship Status Dates Dr. Javan Wells MD Primary care physician Active Start: March 28, 2025 End: March 28, 2025 Dr. Javan Wells MD Referring Provider Active Start: March 28, 2025 End: March 28, 2025 GAMALIEL Mccoy Attending physician Active S tart: March 28, 2025 End: March 28, 2025 Team Status: Inactive Member Role/Relationship Status Dates Dr. Javan Wells MD Primary care physician Active Start: May 02, 2025 End: May 02, 2025 GAMALIEL Mccoy Attending physician Active S tart: May 02, 2025 End: May 02, 2025 GAMALIEL Mccoy Referring Provider Active St art: May 02, 2025 End: May 02, 2025 Team Status: Active Member Role/Relationship Status Dates Dr. Javan Wells MD Primary care physician Active Start: May 02, 2025 Dr. Martín Butt MD Attending physician Active Start: May 02, 2025 (unrecognized sect ion and content) No Status Records Found INFORMATION SOURCE (unrecogn ized section and content) DATE CREATED AUTHOR 06/26/2025 [facility] FOR RECORDS PERTAINING TO PATIENTS WHO ARE OR HAVE BEEN ENROLLED IN A CHEMICAL DEPENDENCY/SUBSTANCEABUSE PROGRAM, SOME INFORMATION MAY BE OMITTED. This clinical summary was aggregated from multiple sources. Caution should be exercised in using it in the provision of clinical care. This summary normalizes information from multiple sources, and as a consequence, information in this document may materially change the coding, format and clinical context of patient data. In addition, data may be omitted in some cases. CLINICAL DECISIONS SHOULD BE BASED ON THE PRIMARY CLINICAL RECORDS. [email or web address]. provides no warranty or guarantee of the accuracy or completeness of information in this document.
--- NOTE | 2025-08-15 11:09 | PRE.ANES_ITS ---
ASA Classification* ASA Classification ASA Classification: 2 Assessment & Plan Anesthesia* Anesthesia Assessment Anesthesia Assessment: Discussed sedation and/or anesthesia options, risks, benefits, and alternatives with patient/parents/legal guardian/POA. Questions invited. The patient/parents/legal guardian/POA seems to understand and agrees to proceed with anesthesia plan. Reviewed the physical assessment, medical history, allergy history and patient home medications list prior to surgery/procedure/anesthetic and documented any changes. Performed airway and anesthesia risk assessments. Anesthesia Type Anesthesia Type: General History Source History Obtained from:: Patient, Chart and Significant Other (Daughters and son in the room) Anesthesia Focused Assessment* Temperature: 97.6 F Pulse Rate: 65 Blood Pressure: 126/61 Respiratory Rate: 16 Pulse Ox: 98 Oxygen Delivery Method: Room Air Airway Assessment Mouth opens: >3 cm Mallampati Score: II Teeth Condition: Chipped/Broken and Missing Neck Range of motion (ROM): Full ROM Labs Anesthesia Preop lab: CBC WBC, (4.4-11.0) 10.1 K/mm3 06/16/25, 13: RBC, (4.6-6.2) 5.23 M/mm3 06/16/25, 13:30 Hgb, (13.0-16.5) 15.9 g/dL 06/16/25, : Hct, (40-54) 45.0 % 06/16/25, 13:30 Plt Count, (150-450) 203 K/mm3 06/16/25, 13:30 CHEMISTRY Potassium, (3.3-5.1) 4.4 mmol/L 07/11/25, 08:23 Sodium, (133-145) 138 mmol/L 07/11/25, 08:23 BUN, (4-19) 16 mg/dL 07/11/25, 08:23 Creatinine, (0.70-1.20) 0.73 mg/dL 07/11/25, 08:23 Glucose, (70-99) 109 mg/dL H 07/11/25, 08:23 POC Glucose, (74-106) 156 mg/dL H Today, 10:16 TSH, (0.358-3.74) 3.38 uIU/mL 08/25/19, 09:14 COAG PT, (11.7-14.9) 13.3 SECONDS 04/28/23, 16:24 Pre-Assessment Diagnosis/Proposed Procedure Planned Operative Procedure(s): ROBOTIC SHANE Anesthesia History 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 When Was Last Pacemaker Check QUESTION #4 FULL TEXT: You/Your Family Experience fever (hyperthermia) with Anesthesia Last Oral Intake Last Oral intake: Last Oral Intake NPO since 19:00 08/15/25 10:07 Meds taken in AM with sips of Yes 08/15/25 10:07 water? Meds patient instructed to 0715 08/15/25 10:07 take am of surgery metoprolol isosorbide PONV PONV - secondary social studies teacher: PONV - secondary social studies teacher Female No 08/01/25 14:22 HX of Motion Sickness No 08/01/25 14:22 HX of N/V After Surgery No 08/01/25 14:22 Non-Smoker Yes 08/01/25 14:22 Duration of Surgery greater No 08/01/25 14:22 than 60 minutes Number of Risk Factors 1 08/01/25 14:22 PONV Score Low Risk 08/01/25 14:22 Height & Weight Height & Weight: Anesthesia: Height & Weight Height 5 ft 6.5 in 08/15/25 10:07 Weight: 132 kg 08/15/25 10:07 Body Mass Index (BMI) 46.3 08/15/25 10:07 Respiratory Assessment Respiratory Assessment - secondary social studies teacher: Respiratory Tract Infection Hx - secondary social studies teacher Hx Respiratory Tract Infection No 08/01/25 14:22 STOP Sleep Apnea STOP Sleep Apnea - secondary social studies teacher: STOP Sleep Apnea - secondary social studies teacher Hx Hypertension Yes: CONTROLLED WITH MED 08/01/25 14:22 Hx Sleep Apnea No 08/01/25 14:22 CPAP BIPAP Do you snore loudly (louder Yes 08/01/25 14:22 than talking or can be heard Do you often feel tired/ No 08/01/25 14:22 fatigued/ sleepy during daytime? Has anyone observed you stop No 08/01/25 14:22 breathing during sleep? STOP Results Positive 08/01/25 14:22 QUESTION #5 FULL TEXT : Do you snore loudly (louder than talking or can be heard through closed doors)? 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 confused, unrespo /Reproduction History /Reproductive History - secondary social studies teacher: /Reproductive Hx- secondary social studies teacher Hx Now No 08/01/25 14:22 Gestational Age (in weeks): EDC: Hx Hx Para Hx Section SAB No 08/01/25 14:22 Does the father of the baby or his family experience fever w Father of the baby Malignant Hypertension history comment Active Medications Active Medications: Current Medications Generic Name Dose Route Start Last Admin Trade Name Freq PRN Reason Stop Dose Admin Clindamycin Phosphate 900 mg in 50 mls @ 75 mls/hr 08/15/25 11:45 Cleocin IV 12/29/25 12:24 INTRAOP ONE Lactated Ringer's 1,000 mls @ 15 mls/hr 08/15/25 10:00 08/15/25 10:19 IV 15 mls/hr .Q48H MISHEL Administration PFSH Medical History Wears glasses Alcohol use Diabetes Arthritis Injury of back Dietary restriction History of diverticulitis Former smoker Asthma Shortness of breath on exertion History of echocardiogram Cardiology follow-up encounter Hypertension Pure hypercholesterolemia Atherosclerotic heart disease of [place] coronary artery without angina pectoris CAD (coronary artery disease) Home Medications ?Medication ?Instructions ?Recorded ?Last Taken ?Type multivitamin with folic acid 400 1 tab PO DAILY supple ment 06/08/13 08/14/25 History mcg tablet sitagliptin phosphate 50 2 tab PO BID blood sugar 08/14/25 History mg-metformin 1,000 mg tablet (Janumet) glimepiride 4 mg tablet 4 mg PO BID blood sugar 12/1708/14/25 History metoprolol tartrate 25 mg tablet 25 mg PO BID blood pr essure #180 09/20/24 08/15/25 07:15 Rx tabs empagliflozin 25 mg tablet 25 mg PO QDAY blood sugar # 90 tabs 10/20/24 08/14/25 Rx isosorbide mononitrate 30 mg 30 mg PO DAILY heart #90 tabs 11/10/24 08/15/25 07:15 Rx tablet,extended release 24 hr semaglutide 0.25 mg or 0.5 mg (2 0.5 mg subcut WE bloo d sugar 03/28/25 08/03/25 History mg/3 mL) subcutaneous pen injector (Ozempic) atorvastatin 40 mg tablet 40 mg PO QHS cholesterol 08/14/25 History lisinopril 20 mg tablet 20 mg PO DAILY heart 5 08/14/25 History Allergy/AdvReac Type Severity Reaction Status Date / Time Penicillins Allergy Unknown Verified 08/01/25 14:17 Family History Mother CAD (coronary artery disease) cabg Diabetes Brother pacemaker Father Diabetes Surgical History Hx of right cataract extraction Hx of left cataract extraction History of cardiac cath (~03/2012) Social History Smoking Status: Former smoker alcohol intake: never substance use type: does not use caffeine: Yes Type: coffee Number of servings: 12 what type of physical activity do you participate in: none seatbelt use: never do you feel safe at home: Yes Review of Systems (Anesthesia) ROS Narrative System reviewed and no additional complaints, except as documented.
--- NOTE | 2025-08-15 11:34 | PCM.HP.BLA ---
History and Physical Date of Admission: 08/15/25 Intake Vital Signs 06/16/2512:05 07/21/2508:08 Height 5 ft 6 in 5 ft 6 in Weight: 291 lb 8 oz BMI 47.0 BP 153/92 H Blood Pressure Location Rt brachial Position Sitting Respiration 18 Pulse 75 Pulse Source Monitor Temp 97.8 F Temp Source Temporal Pulse Oximetry (%) 98 Oxygen Delivery Method room air Intake Visit Reasons: GALLSTONE Chief Complaint: gallstone Is patient in pain?: No Allergies Penicillins Allergy (Verified 07/21/25 08:09) Unknown Medications ?Medication ?Instructions ?Recorded ?Confirmed ?Type aspirin 81 mg chewable tablet 81 mg PO DAILY@0800 06/08/13 07/21/25 History multivitamin with folic acid 400 1 tab PO DAILY supplement 06/08/13 07/21/25 History mcg tablet sitagliptin phosphate 50 1 tab PO BID blood sugar 07/02/18 07/21/25 History mg-metformin 1,000 mg tablet (Janumet) glimepiride 4 mg tablet 4 mg PO .daily @ dinner blood sugar 01/05/21 07/21/25 History metoprolol tartrate 25 mg tablet 25 mg PO BID blood pressure #180 09/20/24 07/21/25 Rx tabs empagliflozin 25 mg tablet 25 mg PO QDAY blood sugar #90 tabs 10/20/24 07/21/25 Rx isosorbide mononitrate 30 mg 30 mg PO DAILY heart #90 tabs 11/10/24 07/21/25 Rx tablet,extended release 24 hr semaglutide 0.25 mg or 0.5 mg (2 0.25 mg subcut QWEEK blood sugar 03/28/25 07/21/25 History mg/3 mL) subcutaneous pen injector (Ozempic) atorvastatin 40 mg tablet 40 mg PO QHS cholesterol 06/16/25 07/21/25 History lisinopril 20 mg tablet 20 mg PO DAILY heart 06/16/25 07/21/25 History Have you fallen in the past year?: No [facility] Medical History (Updated 07/21/25 @ 08:[address] Anthony Mata MD) Non-smoker Hypertension Pure hypercholesterolemia Atherosclerotic heart disease of [place] coronary artery without angina pectoris Intermittent claudication Diabetes mellitus CAD (coronary artery disease) Other halfway (current) drug therapy Arteriosclerotic coronary artery disease Essential (primary) hypertension Hyperlipidemia Surgical History (Updated 07/21/25 @ 08:08 by Miladis Conley LPN) H/O cataract extraction History of cardiac cath (~03/2012) Family History Mother CAD (coronary artery disease) cabg Diabetes Brother pacemaker Father Diabetes Social History Smoking Status: Never smoker alcohol intake: never substance use type: does not use caffeine: Yes Type: coffee Number of servings: 12 what type of physical activity do you participate in: none seatbelt use: never do you feel safe at home: Yes HPI HPI HPI: Patient is a 74-year-old male here for cholelithiasis. The patient had a recent gallbladder attack in early June. He said that he had nausea and vomiting as well as epigastric pain. He went to the emergency room and they saw gallstones and sludge in his gallbladder. The patient also had a CT scan that showed questionable pancreatitis. ROS General General: No weight change, appetite, fatigue, colon cancer, breast cancer or weakness HEENT HEENT: Yes eye surgery; No difficulty swallowing, eye injury, swollen glands or hoarseness Endo Endocrine: No thyroid disease, diabetes mellitus, thyroid cancer, Hair loss, heat intolerance or cold intolerance Skin Skin: No rash or changing moles Musc Musculoskeletal: No back problems, arthritis, rheumatoid arthritis, gout or joint pain Cardio Cardiovascular: Yes murmur, heart disease and high blood pressure; No pacemaker, atrial fibrillation, heart attack, heart stent, palpitations, shortness of breath with exertion or chest pain Psych Psychiatric: Yes depression; No anxiety or hearing voices Resp Respiratory: No shortness of breath, No sleep apnea, No cough, No COPD, No asthma, No emphysema and No wheezing Gastro Gastrointestinal: Yes abdominal pain, No nausea or vomiting, No diarrhea, No constipation, No blood in stool, No acid reflux, No hemorrhoids, No ulcers, Yes gallbladder problem and No black,tarry stools David Hematologic: Yes blood thinners, No blood disorders, No bleeding, No anemia and No blood clots Additional Details: 81mg aspirin Neuro Neurologic: No numbness and No weakness Exam Const General: cooperative Orientation: alert and oriented x3 HENMT Head: normal to inspection Neck Neck: normal visual inspection and full ROM Chest Chest palpation & inspection: normal inspection of the chest Resp Effort & Inspection: normal respiratory effort Auscultation: clear to auscultation bilaterally Cardio Rate: regular rate Rhythm: regular rhythm GI Inspection: non-distended Palpation: soft and nontender Skin General: no rashes or lesions noted Neuro General: patient alert and patient oriented x3 Extrem General: full ROM Psych Appearance: grossly normal Mental Status: mental status grossly normal Assessment and Plan Assessment and Plan (1) Cholelithiasis: Status: Acute Plan: The patient has cholelithiasis and sludge in the gallbladder. The patient had recently had gallstone pancreatitis. The patient would like his gallbladder removed. I discussed robotic assisted laparoscopic cholecystectomy. I discussed the procedure in detail with the patient. I discussed the risks, benefits, and alternatives of the procedure. I discussed the risks including but not limited to bleeding, infection, injury to surrounding organs such as the liver, bile duct, bowels. I did discuss the possibility of having to convert to an open procedure as well as the possibility that if any injuries occurred this may necessitate further surgery at a tertiary care center. Anthony Mata MD Pager: [facility] [address] [place] [address], [address] [place] [address] Office: I have examined the patient and the H&P has been reviewed. There are no clinical changes since date of exam.
--- NOTE | 2025-08-15 11:45 | GALL_PTH ---
PATIENT: MARIYA ORTA [facility]: [facility] U#:[id number] AGE/SX: 74/M ROOM: RE08/15/[address]: Dr. Anthony Mata MD : 1950 BED: DIS: 08/15/2025 SPEC #: [id number] RECD: 08/15/25 13:53 STATUS: RHIANNA REShivani #: [id number] GREGORY: 08/15/25 11:[address]: Anthony Mata DEPT: SURGICAL PATHOLOGY RECD BY: Mary Osuna ENTERED: 08/15/25 13:59 SP TYPE: NINI TAI DR: Dr. Javan Wells MD Tissues: Gallbladder, NOS Procedures: Surgery Specimen Level III HEADER OPERATION: robotic cholecystectomy PRE-OP DIAGNOSIS: Cholelithiasis TISSUE SUBMITTED: A. Gallbladder MICROSCOPIC DIAGNOSIS A. Gallbladder, robotic cholecystectomy: - Chronic cholecystitis with cholelithiasis and cholesterolosis. MICROSCOPIC DESCRIPTION Slides are reviewed. GROSS DESCRIPTION The specimen is received in one properly labeled container with the patient's name and accession number. A. The specimen is designated gallbladder and consists of an 8.9 x 3.7 x 3.3 cm intact gallbladder. The serosal surfaces are jerry-gusman with focal brown mottling. The lumen contains a large amount of green-yellow, tenacious bile admixed with focal green-brown, soft material, and a 0.3 cm single fragmented possible calculus. The mucosal surfaces are green-brown and velvety with diffuse yellow stippling, and the wall is 0.2 cm in average thickness. RS 2 Cassettes: A1, cystic duct margin (en face) and manufacturer representative wall; A2, additional sections of manufacturer representative gallbladder wall to include mucosal stippling [facility] 08/15/2005 CPT: 88965
[2025-08-15] MEDS: Midazolam 2 MG/2 ML Syringe IV (11:57)
[2025-08-15] MEDS: Lidocaine 1% (5 ml sdv) 5 ML Vial IV (12:06)
[2025-08-15] MEDS: Lactated Ringers 1,000 ML 1000 ML IV (12:23)
[2025-08-15] MEDS: fentaNYL 100 MCG/2 ML Ampul 200 MCG IV (13:07)
--- NOTE | 2025-08-15 13:19 | OP.PCM_ITS ---
Operative Report (Standard) Operative Information Date of Procedure: 08/15/25 Pre-Operative Diagnosis: Cholelithiasis and history of gallstone pancreatitis Post-Operative Diagnosis: Same Surgery/Procedure Performed: Robotic assisted laparoscopic cholecystectomy v block saw operator: Yes Gymnastics Coach: Sal Lundy Tasks completed by payroll administrative assistant: Opening & closing Type of Anesthesia: General/Regional RN Documented Start/Stop Times: Operation Date: 08/15/25 11:45 Case Time Into Pre-Op 08/15/25 09:53 Out of Pre-Op 08/15/25 11:48 Anesthesia Start 08/15/25 11:56 Into Room 08/15/25 11:56 Procedure Start 08/15/25 12:17 Procedure Start Time: 12:17 Procedure Stop Time: 13:28 Select all DRAINS/GRAFTS/IMPLANTS that apply: None Estimated Blood Loss: 20 Specimen collected: Yes Description of specimen(s) removed: Gallbladder Description of surgery: Patient was brought back to the operating room and general anesthesia was induced. The abdomen was prepped and draped in usual sterile fashion. A midline incision was made superior to the umbilicus and deepened to the fascia. The fascia was grasped and elevated and a Veress needle was placed into the abdomen. A drop test was performed. The abdomen was insufflated to 15 mmHg and the Veress needle was removed. A port was placed into the abdomen. The camera was placed into the abdomen was inspected for injuries from entry and there were none. The patient was placed in steep reverse Trendelenburg position. The gallbladder was identified and that he appeared to have a cirrhotic liver as well. Under direct visualization to 8 mm ports were placed in the left upper quadrant and one 8 mm port was placed in the right upper quadrant and the midline incision was upsized to a 12 mm port. Next the robot was docked. The gallbladder was grasped and elevated toward the right shoulder. The infundibulum was located using ICG. The cystic duct appeared quite short. It was identified and dissection was carried out around the duct. 3 clips were placed on the duct and it was divided. A posterior artery was then identified. It was dissected free circumferentially and then clipped in triplicate and divided. Next the gallbladder was taken off of the gallbladder fossa. The electrocautery hook was used for hemostasis. There was good hemostasis. The gallbladder was placed into a bag and retracted through the camera port. The liver bed was examined once more and appeared to be hemostatic. Next under laparoscopic guidance a Ralf Villafana needle was used to close the midline fascia using an 0 Vicryl suture. The skin incisions were injected with local anesthetic and closed using interrupted 4-0 Monocryl sutures. Steri-Strips and bandages were applied. Patient was woken and taken to PACU in stable condition and tolerated the procedure well. Surgical Findings: Inflamed gallbladder and possible cirrhosis Complications Complications: No Admit VTE Documentation VTE Mechan Device Prophylaxis: SCD's
--- NOTE | 2025-08-15 13:24 | EX.PCM.DISCH ---
Discharge Instructions Procedure Gallbladder Diet Discharge Diet: Light diet - advance as tolerated Activity Discharge Activity: May Not Drive (for 2-3 days or while taking narcotic pain medications.) and - (Do not drive, work heavy equipment or sign legal documents for 24 hours.) May shower in (days): 1 Lifting Restrictions: 20 lbs for 2 weeks Additional Activity Instructions:: Pain medication may cause nausea. You should typically eat light foods as you take your pain medications. Pain medication may also cause constipation. If this is a problem for you, please discuss with your doctor. Alternate ibuprofen and Tylenol for pain control, oxycodone for breakthrough pain Dressing / Incision Call your doctor if your incision/area has: Continuous Slow Oozing, Sudden Increased Bleeding, Increased Pain/ Swelling, Increased Redness and Foul Smelling Discharge Call your doctor if you observe: Fever of 101 or Higher Suture Line Care: Avoid Pulling/Pushing and Avoid Pinching/Bending Remove Dressing in: 2 days Additional Dressing/Incision Instructions:: Leave operative bandaids on for 2 days. When you remove dressing, leave Steri-Strips on until your follow-up appointment, or until the Steri-Strips fall off on their own. Follow Up Care Please Follow Up With: Anthony Mata MD When: Please call to schedule 2 week follow up appointment. [phone] Test Results: Test results from this visit will be discussed in further detail at your follow-up appointment, if applicable. Discharge Plan Admission Attending Provider: Anthony Mata Primary Care Provider: Javan Wells Instructions Print Language: Ukrainian Discharge Orders/Prescriptions Prescriptions: New oxycodone 5 mg Tablet 5 - 10 mg PO Q4H PRN PRN (Reason: Pain Score 4-10) 5 Days Qty: 20 0RF No Action Janumet 50-1,000 mg tablet 2 tab PO BID glimepiride 4 mg tablet 4 mg PO BID Ozempic 0.25 mg or 0.5 mg (2 mg/3 mL) pen injector 0.5 mg subcut WE Rx Instructions: for 4 weeks multivitamin with folic acid 1 TABLET tablet 1 tab PO DAILY Patient Comments: MULTI VITAMIN lisinopril 20 mg tablet 20 mg PO DAILY atorvastatin 40 mg tablet 40 mg PO QHS metoprolol tartrate 25 mg tablet 25 mg PO BID Qty: 180 3RF empagliflozin 25 mg tablet 25 mg PO QDAY Qty: 90 3RF isosorbide mononitrate 30 mg tablet extended release 24 hr 30 mg PO DAILY Qty: 90 4RF Referrals / Follow Up: Javan Wells MD [Primary Care Provider, Family Practice] Disposition Disposition (needs filled in before D/C Order can be placed): Home, Self Care
--- NOTE | 2025-08-15 13:35 | PCM.POST.ANE ---
Anesthesia: Postop Eval I Current Vital Signs Temperature: 97.9 F Pulse Rate: 72 Blood Pressure: 136/77 Respiratory Rate: 15 Pulse Ox: 96 Oxygen Delivery Method: Room Air Assessment Airway patent: Yes Spontaneous unlabored respirations: Yes Mental status: Awake and Calm nausea: No Vomiting: No Anesthesia Complication: No Fluid Hydration Crystalloid volume administer (ml): 1,500 Total IV fluid infused: 1,500 Progress Note Anesthesia document: Postop Eval 1 completed: Yes
--- NOTE | 2025-08-15 14:13 | POSTOPAN2_ITS ---
Anesthesia Postop Eval I Sum Postop Eval Completion status Anesthesia document: Postop Eval 1 completed: Yes Anesthesia Postop Eval I Summary Anesthesia Postop Eval I Summary: Anesthesia Postop Eval I: Assessment Summary Airway patent Yes 08/15/25 13:57 [email or web address] Spontaneous unlabored Yes 08/15/25 13:57 [email or web address] [email or web address] respirations Mental status Awake,Calm 08/15/25 13:57 [email or web address] nausea No 08/15/25 13:57 [email or web address] [email or web address] Vomiting No 08/15/25 13:57 [email or web address] Anesthesia Postop Eval I: Fluid Summary Crystalloid volume administer 1,500 08/15/25 13:57 [email or web address] (ml) Colloids volume administered ( ml) Blood Product volume administered (ml) Total IV fluid infused 1,500 08/15/25 13:57 [email or web address] Anesthesia Postop Eval I: Summary Notes Anesthesia Complication No 08/15/25 13:57 [email or web address] Anesthesia Complication Comment: Post-operative progress note Anesthesia: Postop Eval II Evaluation Mental status: Awake and Calm Pain Level: 1 nausea: No Vomiting: No Complications Anesthesia Complication: No
--- NOTE | 2025-08-15 14:13 | PCM.POSTANE2 ---
Anesthesia Postop Eval I Sum Postop Eval Completion status Anesthesia document: Postop Eval 1 completed: Yes Anesthesia Postop Eval I Summary Anesthesia Postop Eval I Summary: Anesthesia Postop Eval I: Assessment Summary Airway patent Yes 08/15/25 13:57 MATERIAL HANDLING [email or web address] Spontaneous unlabored Yes 08/15/25 13:57 MATERIAL HANDLING [email or web address] respirations Mental status Awake,Calm 08/15/25 13:57 MATERIAL HANDLING [email or web address] nausea No 08/15/25 13:57 MATERIAL HANDLING [email or web address] Vomiting No 08/15/25 13:57 MATERIAL HANDLING [email or web address] Anesthesia Postop Eval I: Fluid Summary Crystalloid volume administer 1,500 08/15/25 13:57 MATERIAL HANDLING [email or web address] (ml) Colloids volume administered ( ml) Blood Product volume administered (ml) Total IV fluid infused 1,500 08/15/25 13:57 MATERIAL HANDLING [email or web address] Anesthesia Postop Eval I: Summary Notes Anesthesia Complication No 08/15/25 13:57 MATERIAL HANDLING [email or web address] Anesthesia Complication Comment: Post-operative progress note Anesthesia: Postop Eval II Evaluation Mental status: Awake and Calm Pain Level: 1 nausea: No Vomiting: No Complications Anesthesia Complication: No
== END 2025-08-15 16:11 | disposition home or self-care (01) ==
LOC: SDC 09:50 → AC 09:50
PROVIDERS: PCP Family Medicine; Referring Provider Surgery; Visit Provider Surgery
PROC: 0FT44ZZ Resection of Gallbladder, Percutaneous Endoscopic Approach (ICD-10-PCS; CPT 47562; principal; 2025-08-15 11:25)
DX: K80.10 Calculus of gallbladder with chronic cholecystitis without obstruction (principal); E11.9 Type 2 diabetes mellitus without complications; E78.00 Pure hypercholesterolemia, unspecified; I10 Essential (primary) hypertension; I25.10 Atherosclerotic heart disease of native coronary artery without angina pectoris; Z79.84 Long term (current) use of oral hypoglycemic drugs; Z79.85 Long-term (current) use of injectable non-insulin antidiabetic drugs; Z79.01 Long term (current) use of anticoagulants; J45.909 Unspecified asthma, uncomplicated; Z87.891 Personal history of nicotine dependence
CPT/HCPCS: 47562; S2900; 00790; 82962; 88304; 93005; A4216; J2405